=== PATIENT | female | born 1935 | race Caucasian/White ===

== ENCOUNTER 2018-09-19 00:52 | Outpatient (CLI) | payer MEDICARE, BC, SELFPAY ==
--- NOTE | 2018-09-19 10:47 | DI.US_ITS ---
SYMPTOMS/DIAGNOSIS: PALPABLE MASS OVER RT COSTAL ANGLE, R22.2 ULTRASOUND OF THE CHEST: Targeted sonographic ultrasound in the anterior chest was performed. The area was identified by the patient. There is a 0.6 x 0.3 x 0.5 cm hyperechoic solid mass in the subcutaneous tissues inferior to the xiphoid process corresponding to the palpable abnormality. The mass shows no posterior acoustic enhancement or shadowing and no internal blood flow. IMPRESSION: Nonspecific 0.6 cm echogenic mass corresponding to the palpable abnormality. This may represent a focal area of inflammation or infection. Small lipomas should be considered. The findings are nonspecific sonographically. Follow up as clinically appropriate.
== END 2018-09-19 01:12 ==
PROVIDERS: Visit Provider Nurse Practitioner Family
DX: R22.2 Localized swelling, mass and lump, trunk (principal); D17.39 Benign lipomatous neoplasm of skin and subcutaneous tissue of other sites
CPT/HCPCS: 76604

== ENCOUNTER 2018-12-05 12:11 | Outpatient (REF) | payer MEDICARE, SELFPAY ==
[2018-12-05 22:24] LABS: Anion Gap 3.9 mmol/L (3-11); BUN 11 mg/dL (7-18); CO2 34.1 mmol/L (21.0-32.0); CREATININE 0.87 mg/dL (0.55-1.02); Chloride 105 mmol/L (98-107); Glucose 98 mg/dL (70-100); Potassium 4.1 mmol/L (3.5-5.1); Sodium 143 mmol/L (136-145); TSH (W/Ref FT4) 2.68 uIU/mL (0.358-3.74)
== END 2018-12-05 12:31 ==
LOC: NCHCN 12:11
PROVIDERS: PCP Nurse Practitioner Family; Visit Provider Nurse Practitioner Family
DX: E03.9 Hypothyroidism, unspecified (principal); F41.9 Anxiety disorder, unspecified; M81.0 Age-related osteoporosis without current pathological fracture; J30.89 Other allergic rhinitis
CPT/HCPCS: 80048; 84443

== ENCOUNTER 2019-12-14 21:36 | Outpatient (REF) | payer MEDICARE, SELFPAY ==
[2019-12-14 22:21] LABS: TSH (W/Ref FT4) 1.71 uIU/mL (0.36-3.74)
== END 2019-12-14 21:56 ==
LOC: NCHCN 21:36
PROVIDERS: PCP Nurse Practitioner Family; Visit Provider Nurse Practitioner Family
DX: E03.9 Hypothyroidism, unspecified (principal); I10 Essential (primary) hypertension; F41.9 Anxiety disorder, unspecified; M81.0 Age-related osteoporosis without current pathological fracture; J30.89 Other allergic rhinitis
CPT/HCPCS: 84443

== ENCOUNTER 2020-05-17 11:13 | Emergency (ER) | payer MEDICARE, BC, SELFPAY ==
[2020-05-17 11:18] VITALS: BP 158/87; PULSE 81; RESP 16; TEMP 36.7; O2SAT 96
--- NOTE | 2020-05-17 11:32 | ED.GENADUL_ITS ---
Discharge Plan Disposition Patient Disposition: HOME Condition: Stable Discharge Details Chief Complaint: RashLesion Clinical Impression: Insect bite Primary Care Provider: Rosa Viera ED Provider: Navarro Ramos Home Meds and New Rx's Prescriptions: New doxycycline hyclate 100 mg tablet 100 mg PO BID Qty: 14 RF: 0 Continued calcium and magnesium carbonat [Antacid Extra-Strength] 1 EACH tablet 1 tab PO DAILY RF: 0 vitamin B complex 1 EACH capsule 1 cap PO DAILY RF: 0 coenzyme Q10 [CoQ-10] 100 MG capsule 1 cap PO DAILY RF: 0 red yeast rice 600 MG capsule 1 cap PO HS RF: 0 thyroid (pork) [[place] Thyroid] 60 MG tablet 1 tab PO DAILY RF: 0 Tumeric 1 cap PO DAILY RF: 0 propranolol 10 mg tablet 10 BID RF: 0 Discharge Instructions Instructions: Insect Bite or Sting (ED) Additional Instructions: Take antibiotics as prescribed. Continue your regular medications. Do not take the antibiotic at the same time as you take your daily antacid/vitamins. Return for increasing redness, development of a fever, stiff joints, or any other acute concern. Medical Decision Making Healthy 84-year-old female thinks she may have been bit by a tick yesterday which she removed. She noticed small area of erythema on her left arm for which he seeks evaluation today. She has otherwise been well denies other illness. We will treat with a course of doxycycline. Discussed with her home management as well as indications to return for reevaluation. She is stable and appropriate for discharge to home. HPI General Mode of arrival: ambulatory . Date/Time Provider Initiated Documentation: 05/17/20 11:20 . Limitations to Documentation: no limitations . Information obtained by: patient . History of Present Illness 84 year old F presents to the emergency department with the chief complaint of Left arm possible insect bite, described as mild, Quality is described as dull, and is localized to the left and upper extremity. Patient started experiencing this hour(s) and it has been constant. No relieving factors improve symptom(s), No exacerbating factors reported . Patient did receive the following treatments prior to arrival, none Related Data Home Medications Medication Instructions Recorded Confirmed Tumeric 1 cap PO DAILY 05/11/15 05/17/20 calcium and magnesium carbonat 1 tab PO DAILY 05/11/15 05/11/15 [Antacid Extra-Strength] coenzyme Q10 [CoQ-10] 1 cap PO DAILY 05/11/15 05/17/20 red yeast rice 1 cap PO HS 05/11/15 05/17/20 thyroid (pork) [[place] Thyroid] 1 tab PO DAILY 05/11/15 05/17/20 vitamin B complex 1 cap PO DAILY 05/11/15 05/17/20 doxycycline hyclate 100 mg PO BID #14 tab 05/17/20 propranolol 10 BID 05/17/20 Previous Rx's Medication Instructions Recorded doxycycline hyclate 100 mg PO BID #14 tab 05/17/20 Allergies Allergy/AdvReac Type Severity Reaction Status Date / Time grass pollen-perennial rye, Allergy Mild Skin Rash Unverified 05/17/20 11:26 standar [grass poll-perennial rye,std] brazil nuts Allergy Intermediate Swelling/Ed Uncoded 05/17/20 11:26 ad goats Allergy Unknown Uncoded 05/17/20 11:26 General Stated Complaint: RashLesion PEPITO: 4 Review of Systems Narrative: 6 systems reviewed and otherwise negative [facility] Social History Smoking/Tobacco Use Status: Former Tobacco Use Drug use: Never Substance use type: does not use Do you feel safe at home: Yes Exam Narrative Exam Narrative: GEN: awake, alert, oriented 3. Pleasant, well groomed, interactive. HEAD: Normocephalic, atraumatic ENT: Mucous membranes moist, oropharynx unremarkable, External ear exam unre markable EYES: PERRL, EOMI NECK: Full ROM, no AISHA, no menigismus CHEST/RESP: Nontender CARDIOVASCULAR: RRR, no murmur, rub zenaida. 2+ Rad pulse bilateral EXT: Full ROM, no edema, left proximal forearm with 1 cm diameter area of erythema without central lesion. Neuro: Grossly normal neurologic exam, conversant, interactive. Psych: Speech fluent, thoughts congruent, affect normal Course Vital Signs Vital signs: Vital Signs Temperature 36.7 C 05/17/20 11:18 Pulse 81 05/17/20 11:18 Respiratory Rate 16 05/17/20 11:18 Blood Pressure 158/87 H 05/17/20 11:18 Pulse Oximetry 96 05/17/20 11:18 Temperature 36.7 C 05/17/20 11:18 Temperature Source Skin 05/17/20 11:18 Pulse 81 07/03/20 11:18 Respiratory Rate 16 05/17/20 11:18 Respiratory Effort 05/17/20 11:24 Blood Pressure 158/87 H 05/17/20 11:18 Blood Pressure Position Sitting 05/17/20 11:18 Pulse Oximetry 96 05/17/20 11:18 Oxygen Delivery Method Room Air 05/17/20 11:18 Oxygen Flow Rate 0 05/17/20 11:18 Pain Level 0 05/17/20 11:18
== END 2020-05-17 11:39 | disposition home or self-care (01) ==
PROVIDERS: Emergency Provider Emergency Medicine; PCP Nurse Practitioner Family
DX: S50.862A Insect bite (nonvenomous) of left forearm, initial encounter (principal); W57.XXXA Bitten or stung by nonvenomous insect and other nonvenomous arthropods, initial encounter
CPT/HCPCS: 99283

== ENCOUNTER 2020-07-05 18:55 | Outpatient (REF) | payer MEDICARE, OTHER, SELFPAY ==
[2020-07-05 23:33] LABS: Anion Gap 6.3 mmol/L (3-11); BUN 14 mg/dL (7-18); CO2 29.7 mmol/L (21.0-32.0); CREATININE 0.75 mg/dL (0.55-1.02); Calcium 10.2 mg/dL (8.5-10.1); Calculated LDL 133 mg/dL (<100); Chloride 103 mmol/L (98-107); Cholesterol 213 mg/dL (<200); Glucose 120 mg/dL (74-106); HDL Cholesterol 62 mg/dL (40-60); Potassium 4.2 mmol/L (3.5-5.1); Sodium 139 mmol/L (136-145); TSH (W/Ref FT4) 1.34 uIU/mL (0.36-3.74); Triglyceride 91 mg/dL (<150)
== END 2020-07-05 19:15 ==
LOC: NCHCN 18:55
PROVIDERS: PCP Nurse Practitioner Family; Visit Provider Nurse Practitioner Family
DX: I10 Essential (primary) hypertension (principal); E03.9 Hypothyroidism, unspecified; M25.552 Pain in left hip; J30.89 Other allergic rhinitis; F41.9 Anxiety disorder, unspecified; M81.0 Age-related osteoporosis without current pathological fracture
CPT/HCPCS: 80048; 80061; 84443

== ENCOUNTER 2020-07-19 15:13 | Outpatient (REF) | payer MEDICARE, OTHER, SELFPAY ==
[2020-07-19 22:14] LABS: Anion Gap 5.8 mmol/L (3-11); BUN 16 mg/dL (7-18); CO2 29.2 mmol/L (21.0-32.0); CREATININE 0.71 mg/dL (0.55-1.02); Calcium 9.3 mg/dL (8.5-10.1); Chloride 108 mmol/L (98-107); Glucose 97 mg/dL (74-106); Potassium 4.3 mmol/L (3.5-5.1); Sodium 143 mmol/L (136-145)
== END 2020-07-19 15:33 ==
LOC: NCHCN 15:13
PROVIDERS: PCP Nurse Practitioner Family; Visit Provider Nurse Practitioner Family
DX: I10 Essential (primary) hypertension (principal); E78.5 Hyperlipidemia, unspecified; E83.52 Hypercalcemia
CPT/HCPCS: 80048

== ENCOUNTER 2020-11-28 15:01 | Emergency (ER) | payer MEDICARE, BC, OTHER, SELFPAY ==
--- NOTE | 2020-11-28 15:00 | RT.EKG_ITS ---
APPROVED REPORT Exam: Resting ECG Patient Location: E HR:72 bpm ECG Measurements Heart Rate 72 AXIS AZ 153 P 84 QRSd 85 QRS -37 QT 427 T -6 QTc 468 Conclusion Sinus rhythm. normal P axis Left axis deviation
[2020-11-28 15:08] VITALS: BP 191/86; PULSE 81; RESP 18; TEMP 36.6; O2SAT 98
--- NOTE | 2020-11-28 15:15 | DI.RAD_ITS ---
EXAM: XR RIBS LT W PA LAT CHEST CLINICAL HISTORY: Fall, pain TECHNIQUE: 2D digital imaging was performed. COMPARISON: No exams were available for comparison FINDINGS: There are no acute rib fractures evident. No lytic rib lesions identified. No lung contusion or pneumothorax. There is no pleural effusion evident. Heart size is normal and there is no significant mediastinal widening. IMPRESSION: 1. No rib fractures evident. Also no obvious rib lesions. 2. No ipsilateral lung nor pleural abnormality evident. No pneumothorax. DATA REPOSITORY: RADIATION DOSE DELIVERED:
--- NOTE | 2020-11-28 15:19 | ED.GENADUL_ITS ---
Discharge Plan Disposition Patient Disposition: HOME Condition: Stable Discharge Details Clinical Impression: Hip pain, left, Traumatic chest pain Primary Care Provider: Rosa Viera ED Provider: Diaz Hooks Home Meds and New Rx's Prescriptions: Continued Antacid Extra-Strength 1 EACH tablet 1 tab PO DAILY RF: 0 vitamin B complex 1 EACH capsule 1 cap PO DAILY RF: 0 coenzyme Q10 [CoQ-10] 100 MG capsule 1 cap PO DAILY RF: 0 red yeast rice 600 MG capsule 1 cap PO HS RF: 0 thyroid (pork) [[place] Thyroid] 60 MG tablet 1 tab PO DAILY RF: 0 Tumeric 1 cap PO DAILY RF: 0 propranolol 10 mg tablet 10 mg PO BID RF: 0 losartan 25 mg tablet 12.5 mg PO DAILY RF: 0 Discharge Instructions Instructions: Leg Pain (ED) Additional Instructions: your xrays did not show any broken bones if pain continues in a week follow up with your primary care provider return to the emergency department if severe worsening pain or new pain such as abdominal pain You can take 650mg tylenol every 6 hours for pain as needed Discharge Data Discharge Date/Time-TO BE ENTERED AT DEPARTURE: 11/28/20 17:00 Medical Decision Making <Ludy Cr - Last Filed: 11/29/20 08:13> 85-year-old female presents to the ER via wheelchair with chief complaint of left hip pain status post mechanical fall. Patient states approximately 10:00 this morning she tripped over a vacuum house and fell onto her left side. She denies any head injury or loss of consciousness denies any neck or back pain. She denies any dizziness and fall mechanical fall. She has increased pain with weightbearing. She does state that she has had left hip pain for quite a while before the injury. There is no significant shortening or rotation noted on exam distal dorsal pedal pulses are intact. There is no contusions or obvious injury or deformity. She is alert and oriented x3 she did not take any medications prior to arrival. She has past medical history of hypothyroidism, hypertension surgical history includes hysterectomy and tonsillectomy. EKG was reviewed by Dr. Rachel REID ER attending, please see his official report and review. Normal sinus rhythm no ST elevation. X-ray left hip and pelvis ordered, x-ray left ribs and chest p.o. Tylenol given. Care is to be handed off to oncoming provider Dr. Jessee REID pending chest and hip x-rays to rule out left hip fracture. <Diaz Hooks MD - Last Filed: 11/28/20 16:52> xrays negative and patient now walking at baseline without complaints or new pain. Feels comfortable with d/c, suspect contusion of rib cage and hip. Advised to f/u with pcp if not improving within a week and return precautions given Imaging Data Radiologic Study: Attestation: I personally reviewed and interpreted this imaging study as follows: Imaging: X-Ray Radiologist's impression: no acute findings on rib xrays and cxr Radiologic Study #2: Attestation: I personally reviewed and interpreted this imaging study as follows: Imaging: X-Ray Radiologist's impression: no acute findings on hip xray HPI <Ludy Cr - Last Filed: 11/29/20 08:13> General Mode of arrival: wheelchair . Date/Time Provider Initiated Documentation: 11/28/20 15:02 . Limitations to Documentation: no limitations . Information obtained by: patient . HPI Narrative: 85-year-old female presents to the ER via wheelchair with chief complaint of left hip pain status post mechanical fall. Patient states approximately 10:00 this morning she tripped over a vacuum house and fell onto her left side. She denies any head injury or loss of consciousness denies any neck or back pain. She denies any dizziness and fall mechanical fall. She has increased pain with weightbearing. She does state that she has had left hip pain for quite a while before the injury. There is no significant shortening or rotation noted on exam distal dorsal pedal pulses are intact. There is no contusions or obvious injury or deformity. She is alert and oriented x3 she did not take any medications prior to arrival. She has past medical history of hypothyroidism, hypertension surgical history includes hysterectomy and tonsillectomy. Related Data Home Medications Medication Instructions Recorded Confirmed Antacid Extra-Strength 1 tab PO DAILY 05/11/15 11/28/20 Tumeric 1 cap PO DAILY 05/11/15 11/28/20 coenzyme Q10 [CoQ-10] 1 cap PO DAILY 05/11/15 11/28/20 red yeast rice 1 cap PO HS 05/11/15 11/28/20 thyroid (pork) [[place] Thyroid] 1 tab PO DAILY 05/11/15 11/28/20 vitamin B complex 1 cap PO DAILY 05/11/15 11/28/20 propranolol 10 mg PO BID 05/17/20 11/28/20 losartan 12.5 mg PO DAILY 11/28/20 11/28/20 Allergies Allergy/AdvReac Type Severity Reaction Status Date / Time grass pollen-perennial rye, Allergy Mild Skin Rash Unverified 11/28/20 15:11 standar [grass poll-perennial rye,std] brazil nuts Allergy Intermediate Swelling/Ed Uncoded 11/28/20 15:11 ad goats Allergy Unknown Uncoded 11/28/20 15:11 General Stated Complaint: Orthopedic PEPITO: 3 Review of Systems <Ludy Cr - Last Filed: 11/29/20 08:13> Narrative: Constitutional: Negative for weight loss, alert and oriented, well groomed, normal body habitus, appears comfortable. HEENT: Denies trauma, headaches, blurry vision, nasal discharge, sore throat, trouble swallowing. Chest: Denies chest pain, palpitations, irregular rhythm, hypertension. Respiratory: Denies Shortness of breath, cough, hemoptysis. GI: Denies abdominal pain, nausea, vomiting, diarrhea, constipation. : Denies dysuria, hematuria, flank pain, rectal bleeding. Neuro: Denies dizziness, blurry vision, weakness, syncope, headache or facial numbness. Hematologic: Denies easy bruising, intolerance to heat or cold, hair loss. PFSH <Ludy Cr - Last Filed: 11/29/20 08:13> Social History Smoking/Tobacco Use Status: Former Tobacco Use Smoking risk assessment performed?: Yes Drug use: Never Substance use type: does not use Do you feel safe at home: Yes Exam <Ludy Cr - Last Filed: 11/29/20 08:13> Narrative Exam Narrative: Constitutional: Alert and oriented x3. Appears stated age. Normal body habitus. Head: Normocephalic, no trauma. Eyes: Pupils PERRLA, Red reflex noted, EOM's intact. Eyelids symmetrical without lesions, discharge, or swelling. ENT: Bilateral TM's WNL, External ear normal to inspection, no mastoid TTP, swelling, or erythema, Nasal turbinates WNL, no nasal discharge. Normal dentition, Posterior pharynx WNL, no exudate. Chest: RRR, Normal S1, S2, distal pulses intact. Resp: Lungs clear to auscultation bilaterally, no wheezes, rales, or rhonchi. Musculoskeletal: Tenderness to palpation to left lateral hip and thigh with palpation. Pelvis is stable, no obvious step-off or crepitus no deformity. Skin: No suspicious rashes or lesions. Capillary refill less than 2 sec. Neurologic: Cranial nerves II-XII intact. Alert and oriented x 3. DTR's intact. Hematologic/Lymphatic: No ecchymosis, no lymphadenopathy. Course <Ludy Cr - Last Filed: 11/29/20 08:13> Vital Signs Vital signs: Vital Signs Temperature 36.6 C 11/28/20 15:08 Pulse 81 11/28/20 15:08 Respiratory Rate 18 11/28/20 15:08 Blood Pressure 191/86 H 11/28/20 15:08 Pulse Oximetry 98 11/28/20 15:08 Temperature 36.6 C 11/28/20 15:08 Temperature Source Skin 11/28/20 15:08 Pulse 81 11/28/20 15:08 Respiratory Rate 18 11/28/20 15:08 Respiratory Effort Non-Labored 11/28/20 15:14 Blood Pressure 191/86 H 11/28/20 15:08 Blood Pressure Position Sitting 11/28/20 15:08 Pulse Oximetry 98 11/28/20 15:08 Oxygen Delivery Method Room Air 11/28/20 15:08 Oxygen Flow Rate 0 11/28/20 15:08 Pain Level 8 11/28/20 15:08 Sign Out <Ludy Cr - Last Filed: 11/29/20 08:13> Sign Out Data: Sign Out Comment: Pending Xray results Last updated by Ludy Cr at 11/28/20 15:51
[2020-11-28] MEDS: Acetaminophen 500 MG TAB PO (15:21)
--- NOTE | 2020-11-28 16:01 | DI.RAD_ITS ---
EXAM: XR HIP LT COMPLETE AP PELVIS CLINICAL HISTORY: Fall, hip pain. TECHNIQUE: 2D digital imaging was performed. COMPARISON: No exams were available for comparison FINDINGS: There is no evidence of pelvic or hip fracture. There are moderate degenerative changes in the left hip joint noted including joint space narrowing and subarticular degenerative cysts. IMPRESSION: No pelvic or hip fracture evident. Moderate degenerative changes left hip joint. DATA REPOSITORY: RADIATION DOSE DELIVERED:
--- NOTE | 2020-11-28 16:23 | DI.VRAD_ITS ---
PROCEDURE INFORMATION: Exam: XR Left Ribs Exam date and time: 11/28/2020 4:01 PM Age: 85 years old Clinical indication: Pain and injury or trauma; Fall; Blunt trauma (contusions or hematomas); Left-sided chest pain; Rib area, left side; Chest wall pain TECHNIQUE: Imaging protocol: XR Left ribs. Views: 2 views. COMPARISON: No relevant prior studies available. FINDINGS: Bones/joints: Normal. Soft tissues: Normal. IMPRESSION: No acute findings. PROCEDURE INFORMATION: Exam: XR Chest, 2 Views Exam date and time: 11/28/2020 4:01 PM Age: 85 years old Clinical indication: Pain and injury or trauma; Fall; Blunt trauma (contusions or hematomas); Left-sided chest pain; Rib area, left side; Chest wall pain TECHNIQUE: Imaging protocol: XR of the chest Views: 2 views. COMPARISON: No relevant prior studies available. FINDINGS: Lungs: Unremarkable. No consolidation. Pleural space: Unremarkable. No pleural effusion. No pneumothorax. Heart/Mediastinum: Unremarkable. No cardiomegaly. Bones/joints: Unremarkable. IMPRESSION: No acute findings. Dictated and Authenticated by: Lucas Marcos MD. Ordering:ESME Boston MD
--- NOTE | 2020-11-28 16:24 | DI.VRAD_ITS ---
PROCEDURE INFORMATION: Exam: XR Left Hip with Pelvis when Performed Exam date and time: 11/28/2020 4:01 PM Age: 85 years old Clinical indication: Pain and injury or trauma; Fall; Blunt trauma (contusions or hematomas); Hip pain; Left hip TECHNIQUE: Imaging protocol: XR Left hip with pelvis when performed. Views: 2 or 3 views. COMPARISON: No relevant prior studies available. FINDINGS: Bones/joints: Left hip joint space narrowing. Subchondral cystic degenerative changes in the left femoral head. Osteophyte formation left femoral head. No definite fracture. Soft tissues: Unremarkable. IMPRESSION: Moderate arthropathy left hip joint space. No definite evidence of fracture. If the patient is nonweightbearing recommend MRI or CT scan of hip. Dictated and Authenticated by: Lucas Marcos MD. Ordering:ESME Boston MD
[2020-11-28 16:53] VITALS: BP 156/81; PULSE 77; RESP 18; TEMP 36.8; O2SAT 96
== END 2020-11-28 17:00 | disposition home or self-care (01) ==
PROVIDERS: Emergency Provider Emergency Medicine; PCP Nurse Practitioner Family
DX: M25.552 Pain in left hip (principal); R07.81 Pleurodynia; W18.09XA Striking against other object with subsequent fall, initial encounter; I10 Essential (primary) hypertension
CPT/HCPCS: 93005; 99284; 71046; 71100; 73502; 93010

== ENCOUNTER 2021-08-06 15:30 | Outpatient (REF) | payer MEDICARE, OTHER, SELFPAY ==
[2021-08-06 22:35] LABS: BUN 18 mg/dL (7-18); CREATININE 0.7 mg/dL (0.55-1.02); Calcium 9.5 mg/dL (8.5-10.1); Chloride 107 mmol/L (98-107); Glucose 94 mg/dL (74-106); Potassium 4.4 mmol/L (3.5-5.1); Sodium 143 mmol/L (136-145); TSH (W/Ref FT4) 1.68 uIU/mL (0.36-3.74)
== END 2021-08-06 15:31 | disposition home or self-care (01) ==
LOC: NCHCN 15:30
PROVIDERS: PCP Nurse Practitioner Family; Visit Provider Nurse Practitioner Family
DX: E03.9 Hypothyroidism, unspecified (principal); E83.52 Hypercalcemia; I10 Essential (primary) hypertension
CPT/HCPCS: 80048; 84443

== ENCOUNTER 2022-08-31 18:29 | Outpatient (REF) | payer MEDICARE, OTHER, SELFPAY ==
[2022-08-31 16:30] LABS: ALT 32 U/L (14-59); AST 23 U/L (15-37); Albumin 3.3 g/dL (3.4-5.0); Alkaline Phosphatase 122 U/L (46-116); Anion Gap 7.2 mmol/L (3-11); BUN 12 mg/dL (7-18); Bilirubin, Total 0.3 mg/dL (0.2-1.0); CO2 27.8 mmol/L (21.0-32.0); CREATININE 0.9 mg/dL (0.55-1.02); Chloride 107 mmol/L (98-107); Estimated GFR 62.65 (mL/min/1.73m2); Glucose 92 mg/dL (74-106); Potassium 4.1 mmol/L (3.5-5.1); Sodium 142 mmol/L (136-145); Total Protein 6.8 g/dL (6.4-8.2)
[2022-08-31 17:37] LABS: Vitamin D 25 Total 51.4 ng/mL (30-100)
== END 2022-08-31 18:30 | disposition home or self-care (01) ==
LOC: NCHCN 18:29
PROVIDERS: PCP Nurse Practitioner Family; Visit Provider Nurse Practitioner Family
DX: E03.9 Hypothyroidism, unspecified (principal); I10 Essential (primary) hypertension; E78.5 Hyperlipidemia, unspecified; E83.52 Hypercalcemia; M81.0 Age-related osteoporosis without current pathological fracture
CPT/HCPCS: 80053; 82306; 84443

== ENCOUNTER 2023-07-17 14:25 | Emergency (ER) | payer MEDICARE, BC, OTHER, SELFPAY ==
[2023-07-17 14:37] VITALS: BP 154/95; PULSE 84; RESP 18; TEMP 37.1; O2SAT 97
--- NOTE | 2023-07-17 15:59 | ED.GENADUL_ITS ---
Discharge Plan Disposition Patient Disposition: Home Discharge Details Clinical Impression: Lesion of lip Primary Care Provider: Rosa Viera ED Provider: Abdifatah Centeno Home Meds and New Rx's Prescriptions: Continued vitamin K2 PO aspirin 81 mg tablet,delayed release (DR/EC) 81 mg PO DAILY melatonin PO QHS Antacid Extra-Strength 1 EACH tablet 1 tab PO DAILY vitamin B complex 1 EACH capsule 1 cap PO DAILY coenzyme Q10 [CoQ-10] 100 MG capsule 1 cap PO DAILY red yeast rice 600 MG capsule 1 cap PO HS thyroid (pork) [[place] Thyroid] 60 MG tablet 1 tab PO DAILY Tumeric 1 cap PO DAILY propranolol 10 mg tablet 10 mg PO BID Patient Comments: TK 1 T PO BID losartan 25 mg tablet 12.5 mg PO DAILY Patient Comments: TAKE 1/2 TABLET BY MOUTH DAILY Discharge Instructions Instructions: Soft Tissue Mass (ED) Additional Instructions: At this time I do feel that your lesions are stable but we will attempt to see about getting you a sooner appointment given that you have had a new appearance and lesion since your initial referral to ENT. If you have any new or significant worsening of symptoms, as discussed, feel free to follow-up with your primary care provider for reassessment or return to the emergency department as needed Referrals: [facility] [Provider Group] (Please call their office next week to see if sooner appointment is available) Discharge Data Discharge Date/Time-TO BE ENTERED AT DEPARTURE: 07/17/23 16:27 Medical Decision Making Patient presenting to the emergency department for chief complaint of lip lesion. Reports this has been there for 6 months and patient has seen primary care for this and referred to ENT and has an appointment on August 16. Since her primary care visit she is now started to notice a another lesion starting on her lower lip. Patient denies all other symptoms. Physical exam does show larger approximately 5 to 7 mm lesion to the upper left lip almost to the lateral corner. On the left lower to central aspect of the inner lip she does have signs of a slight new lesion but not as palpable as the upper 1. Exam is otherwise unremarkable. Do not feel that there is any need for emergent labs or work-up but do think that patient should follow-up with ENT and will place patient on follow-up list to see if she can follow-up sooner given new lesion. After discussion of diagnosis and plan of care patient has no further needs, questions, or concerns and states clear understanding to return to the emergency department for any worsening symptoms. This documentation was generated using [employer] dictation system, please disregard any oddities of phrase or misspellings. HPI General Mode of arrival: ambulatory . Date/Time Provider Initiated Documentation: 07/17/23 15:34 . Limitations to Documentation: no limitations . Information obtained by: patient and RN notes reviewed . History of Present Illness 87 year old F presents to the emergency department with the chief complaint of Lip lesion, Patient started experiencing this month(s) (6) and it has been constant. Patient notes no other symptoms.. Patient did receive the following treatments prior to arrival, none Related Data Home Medications Medication Instructions Recorded Confirmed Tumeric 1 cap PO DAILY 05/11/15 11/28/20 calcium and magnesium carbonates 1 tab PO DAILY 05/11/15 11/28/20 311 mg-232 mg tablet (Antacid Extra-Strength) coenzyme Q10 100 mg capsule 1 cap PO DAILY 05/11/15 07/17/23 (CoQ-10) red yeast rice 600 mg capsule 1 cap PO HS 05/11/15 07/17/23 thyroid (pork) 60 mg tablet 1 tab PO DAILY 05/11/15 07/17/23 ([place] Thyroid) vitamin B complex 1 cap PO DAILY 05/11/15 07/17/23 propranolol 10 mg tablet 10 mg PO BID 05/17/20 07/17/23 losartan 25 mg tablet 12.5 mg PO DAILY 11/28/20 07/17/23 aspirin 81 mg tablet,delayed 81 mg PO DAILY 07/16/23 07/17/23 release melatonin PO QHS 07/16/23 vitamin K2 PO 07/16/23 Allergies Allergy/AdvReac Type Severity Reaction Status Date / Time grass pollen-perennial rye, Allergy Mild Skin Rash Unverified 07/17/23 14:41 standar [grass poll-perennial rye,std] tetracycline AdvReac Mild Verified 07/17/23 14:41 brazil nuts Allergy Intermediate Swelling/Ed Uncoded 07/17/23 14:41 ad goats Allergy Unknown Uncoded 07/17/23 14:41 General Stated Complaint: DentalOral PEPITO: 4 Review of Systems Constitutional Constitutional: Denies chills, Denies fever(s) and Denies weight loss ENT Ears, Nose, Mouth, and Throat: Reports as per HPI Integumentary/Breasts Skin/Breast: Reports as per HPI PFSH All Active Problems Lesion of lip (Acute) Medical History 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 Anxiety Elevated alkaline phosphatase level Fibrocystic breast disease Hypercalcemia Hyperlipidemia Hypertension Hypothyroidism Lip lesion Osteoporosis Skin lesion of face Swelling, mass, or lump in chest Social History Smoking/Tobacco Use Status: Former Tobacco Use Smoking risk assessment performed?: Yes Alcohol Intake: never Drug use: Never Substance use type: does not use Do you feel safe at home: Yes Exam Const General: cooperative, comfortable and no acute distress Orientation: alert and awake HENMT Head: normal to inspection, normocephalic and atraumatic Ears: hearing grossly normal bilaterally and TM's normal bilaterally General nose exam: external nose normal Face and sinus: no erythema Mouth: no drooling, lip abnormal left lateral lesion, left lower lesion, no muffled voice and no trismus Throat: posterior oropharynx normal Neck Neck: normal visual inspection, full ROM, no lymphadenopathy, no meningeal signs, trachea midline and supple Resp Effort & Inspection: normal respiratory effort and able to speak in complete sentences Auscultation: clear to auscultation bilaterally Cardio Rate: regular rate Rhythm: regular rhythm Heart Sounds: normal S1 and S2 Skin General skin exam: no rashes or lesions noted and dry skin (warm) Neuro General: patient alert, patient awake, patient oriented x3, gait normal and moves all extremities Cognition: normal cognition Speech: speech normal Course Vital Signs Vital signs: Vital Signs Temperature 37.1 C 07/17/23 14:37 Pulse 84 07/17/23 14:37 Respiratory Rate 18 07/17/23 14:37 Blood Pressure 154/95 H 07/17/23 14:37 Pulse Oximetry 97 07/17/23 14:37 Temperature 37.1 C 07/17/23 14:37 Temperature Source Temporal Artery Scan 07/17/23 14:37 Pulse 84 07/17/23 14:37 Respiratory Rate 18 07/17/23 14:37 Respiratory Effort Normal, Non-Labored 07/17/23 14:42 Blood Pressure 154/95 H 07/17/23 14:37 Blood Pressure Position Sitting 07/17/23 14:37 Pulse Oximetry 97 07/17/23 14:37 Oxygen Delivery Method Room Air 07/17/23 14:37 Oxygen Flow Rate 0 07/17/23 14:37
--- NOTE | 2023-07-17 23:23 | NUR.NOTE ---
Pt placed on care management referral for ENT for new lip lesion to be seen sooner if possible. Nursing Note:
== END 2023-07-17 16:27 | disposition home or self-care (01) ==
PROVIDERS: Emergency Provider Nurse Practitioner Family; PCP Nurse Practitioner Family
DX: K13.0 Diseases of lips (principal)
CPT/HCPCS: 99282

== ENCOUNTER 2023-09-06 14:08 | Outpatient (REF) | payer MEDICARE, OTHER, SELFPAY ==
--- NOTE | 2023-09-06 12:30 | LIPBX_PTH ---
PATIENT: Dulce Palm LOC: N U#:[id number] AGE/SX: 87/F ROOM: RE09/06/[address]: Ramesh Mitchell MD : [id number] BED: DIS: 09/06/2023 SPEC #: [id number] RECD: 09/06/23 18:19 STATUS: NATHALIE REQ #: [id number] YADIRA: 09/06/23 12:[address]: Ramesh Mitchell DEPT: Surgical Specimen RECD BY: Yesica Garcia ENTERED: 09/06/23 18:20 SP TYPE: LIPBX OTHR DR: Rosa Viera Tissues: 1 - LIP BIOPSY/RESECTION Procedures: SPECIAL STAIN 2 GROSS AND MICRO LEVEL 4 Comments: [id number]
== END 2023-09-06 14:09 | disposition home or self-care (01) ==
LOC: LBN 14:08
PROVIDERS: PCP Nurse Practitioner Family; Visit Provider Otolaryngology
DX: K13.0 Diseases of lips (principal)
CPT/HCPCS: 88305; 88313

== ENCOUNTER 2023-09-14 16:25 | Outpatient (REF) | payer MEDICARE, OTHER, SELFPAY ==
[2023-09-14 20:30] LABS: Abs Immature Grans 0.02 10^3/uL (0.0-0.06); Absolute Basophil Count 0.07 10^3/uL (0.0-0.2); Absolute Eosinophil Count 0.19 10^3/uL (0.0-0.7); Absolute Lymphocyte Count 1.39 10^3/uL (1.2-3.4); Absolute Monocyte Count 0.49 10^3/uL (0.1-0.8); Absolute Neutrophil Count 5.77 10^3/uL (1.2-6.7); Basophils % 0.9; Eosinophils % 2.4; HCT 40.3 % (36.0-46.0); Immature Grans % 0.3; Lymphocytes % 17.5; MCH 30.5 pg (27.0-33.0); MCHC 32.3 % (32.0-36.0); MCV 95 fL (80-95); MPV 9.8 fL (8.0-11.0); Monocytes % 6.2; Neutrophils % 72.7; Platelet Count 319 10^3/uL (130-400); RBC 4.26 10^6/uL (3.93-5.22); RDW 12.7 % (11.7-14.6); WBC 7.93 10^3/uL (4.4-10.8)
[2023-09-14 21:06] LABS: ALT 27 U/L (14-59); AST 26 U/L (15-37); Albumin 3.4 g/dL (3.4-5.0); Alkaline Phosphatase 100 U/L (46-116); Anion Gap 7.1 mmol/L (3-11); BUN 13 mg/dL (7-18); Bilirubin, Total 0.3 mg/dL (0.2-1.0); CO2 27.9 mmol/L (21.0-32.0); CREATININE 0.8 mg/dL (0.55-1.02); Chloride 106 mmol/L (98-107); Estimated GFR 71.71 (mL/min/1.73m2); Glucose 108 mg/dL (74-106); Potassium 4.1 mmol/L (3.5-5.1); Sodium 141 mmol/L (136-145); TSH (W/Ref FT4) 1.48 uIU/mL (0.36-3.74); Total Protein 7.4 g/dL (6.4-8.2)
== END 2023-09-14 16:26 | disposition home or self-care (01) ==
LOC: NCHCN 16:25
PROVIDERS: PCP Nurse Practitioner Family; Visit Provider Nurse Practitioner Family
DX: I10 Essential (primary) hypertension (principal); E78.5 Hyperlipidemia, unspecified; E03.9 Hypothyroidism, unspecified; R74.8 Abnormal levels of other serum enzymes; M81.0 Age-related osteoporosis without current pathological fracture; R39.89 Other symptoms and signs involving the genitourinary system
CPT/HCPCS: 80053; 82306; 84443; 85025; 87086

== ENCOUNTER 2023-09-14 17:13 | Emergency (ER) | payer MEDICARE, BC, OTHER, SELFPAY ==
[2023-09-14 17:21] VITALS: BP 189/116; PULSE 88; RESP 20; TEMP 36.6; O2SAT 99
[2023-09-14 17:28] VITALS: BP 189/116; PULSE 80; RESP 20; TEMP 36.9; O2SAT 98
[2023-09-14 17:42] LABS: Bilirubin Small (Negative); Blood Large (Negative); Clarity Turbid (Clear); Glucose Negative (Negative); Ketones Negative (Negative); Leukocyte Esterase Trace (Negative); Nitrite Negative (Negative); Specific Gravity 1.015 (1.005-1.025); Urobilinogen 0.2 mg/dL (Up to 0.2)
[2023-09-14 17:50] LABS: Bacteria Negative HPF (Negative); C & S Indicated? Yes; Crystals Negative HPF (Negative); Epithelial Cells Rare HPF (Negative); Mucus Negative (Negative); Other Cells Negative (Negative); RBC >50 HPF (0-2); WBC 0-2 HPF (0-5)
--- NOTE | 2023-09-14 18:09 | W.ED.GENAD ---
Discharge Plan Disposition Patient Disposition: Home Discharge Details Clinical Impression: Hematuria Primary Care Provider: Rosa Viera ED Provider: Katie Martinez Home Meds and New Rx's Prescriptions: New nitrofurantoin monohyd/m-cryst [Macrobid] 100 mg capsule 100 mg PO Q12H 3 Days Qty: 6 0RF Rx Instructions: must administer with a meal/food No Action vitamin K2 PO Patient Comments: No dose information listed on med list aspirin 81 mg tablet,delayed release (DR/EC) 81 mg PO DAILY melatonin 2 mg PO QHS vitamin B complex 1 EACH capsule 1 cap PO DAILY coenzyme Q10 [CoQ-10] 100 MG capsule 1 cap PO DAILY red yeast rice 600 MG capsule 1 cap PO HS thyroid (pork) [Barnett Thyroid] 60 MG tablet 30 mg PO DAILY Tumeric 1 cap PO DAILY propranolol 10 mg tablet 10 mg PO BID Patient Comments: TK 1 T PO BID losartan 25 mg tablet 12.5 mg PO DAILY Patient Comments: TAKE 1/2 TABLET BY MOUTH DAILY calcium-magnesium 1 tab PO DAILY Discharge Instructions Instructions: Hematuria (ED) Additional Instructions: We have sent a culture which will be resulted in 48 hours. If your culture is positive or if you develop any urinary frequency or urgency, fill the prescription for the Macrobid 100 mg twice a day for 3 days. We recommend you take a probiotic while on antibiotics. You will be contacted by urology for the blood in your urine. Call your primary care provider in the morning for a follow-up appointment and recheck notify them that a culture was done. Return here for any new or worrisome symptoms. Discharge Data Discharge Physician: Katie Martinez Medical Decision Making This is an 87-year-old female in good health who presents with hematuria. She is not on therapeutic anticoagulants and denies any other bleeding or easy bruising. She does not appear clinically anemic but my plan is to obtain blood work to check her platelet count H&H and differential. We will also check her renal function and electrolytes. We will check a urinalysis for blood and infection. If she has evidence of infection we will treat her with antibiotics although I think this is unlikely given that she has had previous UTIs and has not had any similar symptoms. Overall she appears well and will likely be discharged home with outpatient follow-up Differential Diagnosis Differential Diagnosis: Hematuria, UTI, thrombocytopenia, coagulopathy Medical Records Medical records reviewed: Yes I reviewed the patient's medical records. Lab Data Lab results reviewed: Yes I reviewed the patient's lab results. Lab results narrative: Hematuria. Trace leukocyte esterase, urine culture is pending HPI General Date/Time Provider Initiated Documentation: 09/14/23 18:08. Information obtained by: patient, family and RN notes reviewed. HPI Narrative: Time seen was 1800 in bed 6. History was obtained both from the patient and her son. The patient is a 87-year-old female who presents with hematuria. She states it began today and was associated with symptoms of urinary retention. She does have a history of UTIs in the distant past but was told she had a stenotic area that was dilated and this resolved her recurrent UTIs. She tells me the procedure was done in [place] in 1979. I am assuming this was a urethral stricture. She denies any urgency or dysuria. She did have the sensation of urinary retention and was only able to urinate a small amount. She did note blood in the urine and was advised to come in for evaluation. She is not on therapeutic anticoagulants. She denies any bleeding from her gums or easy bruising. She denies any trauma or previous similar episodes. She is scheduled to see a dentist for a tooth in the left lower jaw. She denies any fevers chills or abdominal pain. She denies any nausea or vomiting. She denies any aggravating or alleviating factors. She denies any previous similar episodes. She denies any pain. She recently had a lesion of her left lower lip biopsied and was told it was noncancerous. Related Data Home Medications Medication Instructions Recorded Confirmed Tumeric 1 cap PO DAILY 05/11/15 09/14/23 coenzyme Q10 100 mg capsule 1 cap PO DAILY 05/11/15 09/14/23 (CoQ-10) red yeast rice 600 mg capsule 1 cap PO HS 05/11/15 09/14/23 thyroid (pork) 60 mg tablet 30 mg PO DAILY 05/11/15 09/14/23 (Barnett Thyroid) vitamin B complex 1 cap PO DAILY 05/11/15 09/14/23 propranolol 10 mg tablet 10 mg PO BID 05/17/20 09/14/23 losartan 25 mg tablet 12.5 mg PO DAILY 11/28/20 09/14/23 aspirin 81 mg tablet,delayed 81 mg PO DAILY 07/16/23 09/14/23 release melatonin 2 mg PO QHS 07/16/23 09/14/23 vitamin K2 PO 07/16/23 09/06/23 calcium-magnesium 1 tab PO DAILY 09/14/23 09/14/23 nitrofurantoin 100 mg PO Q12H 3 days #6 caps 09/14/23 monohydrate/macrocrystals 100 mg capsule (Macrobid) Previous Rx's Medication Instructions Recorded nitrofurantoin 100 mg PO Q12H 3 days #6 caps 09/14/23 monohydrate/macrocrystals 100 mg capsule (Macrobid) Allergies Allergy/AdvReac Type Severity Reaction Status Date / Time grass pollen-perennial rye, Allergy Mild Skin Rash Unverified 09/14/23 17:21 standar [grass poll-perennial rye,std] tetracycline AdvReac Mild Verified 09/14/23 17:21 brazil nuts Allergy Intermediate Swelling/Ed Uncoded 09/14/23 17:21 ad goats Allergy Unknown Uncoded 09/14/23 17:21 General Stated Complaint: Urinary PEPITO: 3 Review of Systems Narrative: see hpi PFSH All Active Problems (Updated 09/14/23 @ 19:41 by Katie Martinez MD) Hematuria (Acute) Medical History Fibrocystic breast disease Hypercalcemia Elevated alkaline phosphatase level Osteoporosis Hypothyroidism Anxiety 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 Skin lesion of face Swelling, mass, or lump in chest Hypertension Hyperlipidemia Lip lesion Social History Smoking/Tobacco Use Status: Former Tobacco Use Smoking risk assessment performed?: Yes Alcohol Intake: never Drug use: Never Substance use type: does not use Housing: house Do you feel safe at home: Yes Do you feel safe in your relationship?: Yes Exam Narrative Exam Narrative: The patient is well-developed well-nourished female who is mildly hypertensive. She appears younger than her stated age. She is not tachycardic tachypneic or febrile. She has a normal room air O2 sat at 99%. Her GCS is 15. Const General: cooperative, healthy appearing, comfortable, no acute distress, well developed, well groomed and well hydrated Nutritional Appearance: average body habitus and well nourished Orientation: alert, awake and oriented x3 [facility] Head: normal to inspection, normocephalic and atraumatic Ears: hearing grossly normal bilaterally and external ears normal General nose exam: external nose normal, nares normal and no nasal discharge Face and sinus: normal facial exam, sinuses nontender and face symmetric Mouth: oral mucosae normal, tongue normal, oropharynx normal, moist mucous membranes and other (Normal phonation. The patient is handling secretions.) Throat: posterior oropharynx normal and uvula midline Other: The patient has some missing teeth. There is no evidence of buccal cellulitis or dental abscess. Tooth #19 or 20 appears slightly discolored and sandoval but there is no obvious cavity or fracture. Eyes General: appearance normal, both eyes and all related structures Eyelids: eyelids normal Conjunctivae: conjunctivae normal Sclera: sclerae normal Cornea: corneas normal Pupils: PERRL EOM: EOM intact bilaterally and No nystagmus Neck Neck: normal visual inspection, full ROM, no lymphadenopathy, no meningeal signs, trachea midline and supple Lymphatic: no lymphadenopathy noted Chest Chest: normal inspection of the chest Resp Effort & Inspection: normal respiratory effort, able to speak in complete sentences, no audible wheezes, no nasal flaring, no respiratory distress, no retractions, no stridor, not tachypneic, no tracheal deviation, no use of accessory muscles, No prolonged expiratory phase and other (Normal inspiratory to expiratory ratio.) Auscultation: clear to auscultation bilaterally, no rales, no rhonchi, no wheezes and no rubs Tactile Fremitus: tactile fremitus absent Cardio Jugular venous pressure: no JVD Palpation: normal PMI Rate: regular rate Rhythm: regular rhythm Heart Sounds: S1 normal, S2 normal, no gallops, no murmurs and no rubs GI Inspection: normal to inspection and non-distended Palpation: soft, no hepatosplenomegaly, no guarding and nontender Percussion: normal to percussion Auscultation: normal bowel sounds General: No CVA tenderness Back/Spine/Pelvis Back: no CVA tenderness and No back tenderness Cervical Spine: normal cervical lordosis, cervical ROM normal, No cervical muscular tenderness, No pain with cervical ROM, No cervical spinal tenderness and No step off deformity Thoracic/Lumbar Spine: thoracic and lumbar spine normal to inspection, No thoracic spinal tenderness and No lumbar spinal tenderness Pelvis: no pain with anterior-posterior compression and no pain with lateral compression Skin General skin exam: no rashes or lesions noted, turgor normal, no petechiae, no purpura and other (Skin is normal for ethnicity.) Lesions: no lesions Rashes: no rashes Trauma: no lacerations or abrasions Neuro General: patient alert, patient awake, patient oriented x3, moves all extremities, no meningeal signs, no focal motor deficits and CN's II-XI intact bilaterally Cranial Nerves: CN's II-XI intact bilaterally, PERRL, accommodation normal, EOM intact bilaterally, no nystagmus, facial strength normal, tongue midline, hearing normal and no nystagmus Cognition: normal cognition Speech: speech normal Gait: normal gait Motor: muscle tone normal throughout and strength 5/5 throughout Sensory Exam: no sensory deficits noted Extrem General: normal to inspection, full ROM, capillary refill normal, no clubbing, cyanosis or edema and no calf tenderness Psych Appearance: grossly normal Affect: normal affect Attitude: cooperative Thought Process: normal Thought Content: normal Insight: insight good Judgment: judgment good Other: The patient appears to have capacity make medical decisions. Course The patient remained stable in the emergency department. I have discussed the urine culture which is pending. She did have a small amount of leukocyte Estrace but has not had dysuria frequency or urgency. I have advised the patient I will write for Macrobid 100 mg twice daily for 3 days. I have advised her to take it if the urine culture is positive or if she begins having symptoms of dysuria frequency or urgency. I have advised her to take a probiotic if she takes the antibiotic. I have also advised her she will be followed up by urology and advised her to contact her primary care provider to obtain the results of the urine culture and for any further treatment or recommendations Vital Signs Vital signs: Vital Signs Temperature 36.6 C 09/14/23 17:21 Pulse 88 09/14/23 17:21 Respiratory Rate 20 09/14/23 17:21 Blood Pressure 189/116 H 09/14/23 17:21 Pulse Oximetry 99 09/14/23 17:21 Temperature 36.9 C 09/14/23 17:28 Pulse 80 09/14/23 17:28 Respiratory Rate 20 09/14/23 17:28 Respiratory Effort Normal 09/14/23 17:28 Blood Pressure 189/116 H 09/14/23 17:28 Blood Pressure Position Sitting 09/14/23 17:21 Pulse Oximetry 98 09/14/23 17:28 Oxygen Delivery Method Room Air 09/14/23 17:28 Oxygen Flow Rate 0 09/14/23 17:21 Lab/Test Results Lab/Test Results: 09/14/23 17:20 Urine - Reflex from Ua Urine Culture - Pending Laboratory Tests Range/Units 09/14/23 17:20 Urine Color (Yellow) Red Urine Clarity (Clear) Turbid Urine pH (5-8) 7.0 Ur Specific [place] (1.005-1.025) 1.015 Urine Protein (Negative) mg/dL 100 H Urine Ketones (Negative) mg/dL Negative Urine Blood (Negative) Large H Urine Nitrite (Negative) Negative Urine Bilirubin (Negative) Small H Urine Urobilinogen (Up to 0.2) mg/dL 0.2 Ur Leukocyte Esterase (Negative) Trace H Urine RBC (0-2) HPF >50 H Urine WBC (0-5) HPF 0-2 Ur Epithelial Cells (Negative) HPF Rare Urine Crystals (Negative) HPF Negative Urine Bacteria (Negative) HPF Negative Urine Mucus (Negative) Negative Urine Other (Negative) Negative Ur Culture Indicated? Yes Urine Glucose (Negative) mg/dL Negative
[2023-09-14 18:32] LABS: HCT 40.7 % (36.0-46.0); HGB 13.4 g/dL (11.2-15.7); MCH 30.7 pg (27.0-33.0); MCHC 32.9 % (32.0-36.0); MCV 93 fL (80-95); MPV 8.8 fL (8.0-11.0); Platelet Count 316 10^3/uL (130-400); RBC 4.37 10^6/uL (3.93-5.22); RDW 12.5 % (11.7-14.6); RDW-SD 42.8 fL; WBC 8.59 10^3/uL (4.4-10.8)
[2023-09-14 18:48] LABS: ALT 28 U/L (14-59); AST 25 U/L (15-37); Albumin 3.7 g/dL (3.4-5.0); Alkaline Phosphatase 110 U/L (46-116); Anion Gap 7.9 mmol/L (3-11); BUN 12 mg/dL (7-18); Bilirubin, Total 0.3 mg/dL (0.2-1.0); CO2 29.1 mmol/L (21.0-32.0); CREATININE 0.8 mg/dL (0.55-1.02); Calcium 10.4 mg/dL (8.5-10.1); Chloride 104 mmol/L (98-107); Estimated GFR 71.71 (mL/min/1.73m2); Glucose 113 mg/dL (74-106); Potassium 4.2 mmol/L (3.5-5.1); Sodium 141 mmol/L (136-145)
[2023-09-14 19:43] VITALS: BP 154/88; PULSE 78; RESP 18; TEMP 36.7; O2SAT 98
--- NOTE | 2023-09-14 20:14 | NUR.NOTE ---
Referral faxed to [facility] Urology to f/u for hematuria.Nursing Note:
== END 2023-09-14 19:47 | disposition home or self-care (01) ==
PROVIDERS: Emergency Provider Emergency Medicine Emergency Medical Services; PCP Nurse Practitioner Family
DX: R31.9 Hematuria, unspecified (principal)
CPT/HCPCS: 51798; 80048; 80053; 85027; 99283; 81003; 81015; 87086; 99284

== ENCOUNTER 2024-06-01 21:51 | Outpatient (REF) | payer MEDICARE, BC, OTHER, SELFPAY ==
[2024-06-01 22:56] LABS: ALT 25 U/L (14-59); AST 19 U/L (15-37); Albumin 3.2 g/dL (3.4-5.0); Alkaline Phosphatase 99 U/L (46-116); Anion Gap 5.4 mmol/L (3-11); BUN 15 mg/dL (7-18); Bilirubin, Total 0.36 mg/dL (0.2-1.0); CO2 27.6 mmol/L (21.0-32.0); CREATININE 0.9 mg/dL (0.55-1.02); Calcium 9.4 mg/dL (8.5-10.1); Chloride 106 mmol/L (98-107); Estimated GFR 61.87 (mL/min/1.73m2); Glucose 100 mg/dL (74-106); Potassium 4.1 mmol/L (3.5-5.1); Sodium 139 mmol/L (136-145); TSH (W/Ref FT4) 1.33 uIU/mL (0.36-3.74); Total Protein 6.6 g/dL (6.4-8.2); Vitamin D 25 Total 47.9 ng/mL (30-100)
== END 2024-06-01 21:52 | disposition home or self-care (01) ==
LOC: NCHCN 21:51
PROVIDERS: PCP Nurse Practitioner Family; Visit Provider Nurse Practitioner Family
DX: I10 Essential (primary) hypertension (principal); E03.9 Hypothyroidism, unspecified; M81.0 Age-related osteoporosis without current pathological fracture
CPT/HCPCS: 80053; 82306; 84443

== ENCOUNTER 2025-01-11 09:52 | Inpatient (IN) | payer MEDICARE, BC, OTHER, SELFPAY ==
[2025-01-11] VITALS (45 sets, daily range): BP systolic 122–185; BP diastolic 55–111; PULSE 70–92; RESP 12–23; TEMP 36.3–36.9; O2SAT 94–100; BMI 20.7
--- NOTE | 2025-01-11 10:00 | DI.RAD_ITS ---
Exam(s) XR PELVIS AP XR KNEE LT 3V AP,LAT,LORIN XR FEMUR LT EXAM: XR FEMUR LT CLINICAL HISTORY: fall, left hip pain. TECHNIQUE: 2D digital imaging was performed. AP and lateral views of the femur. AP view of the pel vis. Three views of the knee. COMPARISON: None. FINDINGS: BONES: There is intertrochanteric fracture of the left femur with mild impaction and a few small comm inuted fragments.. No additional fractures are identified. No bony destructive lesion is seen. JOINTS: No dislocation present. Degenerative changes of the left hip. The knee is unremarkable. No significant joint space narrowing or evidence of fracture. SOFT TISSUE: Normal. IMPRESSION: Intertrochanteric fracture of the left femur. DATA REPOSITORY: RADIATION DOSE DELIVERED:
--- NOTE | 2025-01-11 10:15 | RT.EKG_ITS ---
APPROVED REPORT Exam: Resting ECG Reason for Exam: fall Patient Location: E HR:85 bpm ECG Measurements Heart Rate 85 AXIS MI 131 P 0 QRSd 73 QRS -43 QT 367 T -61 QTc 436 Conclusion Sinus rhythm...normal P axis, V-rate 60- 99 Left axis deviation...QRS axis (-30,-90) Nonspecific T abnormalities, lateral leads...T <-0.10mV, I aVL V5 V6 I have reviewed and interpreted ECG and agree with software generated interpretation.
[2025-01-11 10:57] LABS: Abs Immature Grans 0.12 10^3/uL (0.0-0.06); Absolute Basophil Count 0.06 10^3/uL (0.0-0.2); Absolute Lymphocyte Count 0.66 10^3/uL (1.2-3.4); Absolute Monocyte Count 1.27 10^3/uL (0.1-0.8); Basophils % 0.3 %; HCT 35.4 % (36.0-46.0); HGB 11.7 g/dL (11.2-15.7); Immature Grans % 0.6 %; Lymphocytes % 3.1 %; MCH 30.5 pg (27.0-33.0); MCHC 33.1 % (32.0-36.0); MCV 92 fL (80-95); MPV 9.8 fL (8.0-11.0); Platelet Count 245 10^3/uL (130-400); RBC 3.83 10^6/uL (3.93-5.22); RDW 13.1 % (11.7-14.6); WBC 21.17 10^3/uL (4.4-10.8)
[2025-01-11 10:58] LABS: Lactate 4.8 mmol/L (<or=2.0)
[2025-01-11 10:59] LABS: Absolute Neutrophil Count 19.05 10^3/uL (1.2-6.7)
--- NOTE | 2025-01-11 11:05 | DI.CT_ITS ---
Exam(s) CT CHEST/ABD/PEL WO EXAM: CT CHEST/ABD/PEL WO CLINICAL HISTORY: fall, confused, altered, covered in feces, L hip p. TECHNIQUE: Imaging Protocol: Axial computed tomography images with coronal and sagittal reformatted images were created and reviewed. Computer aided detection (CAD) was utilized. CONTRAST MATERIAL: Noncontrast COMPARISON: No exams were available for comparison FINDINGS: CHEST: Tracheobronchial tree: Patent. Pulmonary parenchyma: No consolidation or dominant measurable mass. Pleura: No effusion or pneumothorax. Biapical pleural calcification. Mediastinum: Within normal limits. Aorta: Thoracic portion non-dilated. Pulmonary arteries: No visible emboli. Heart: No pericardial effusion. Bones: Unremarkable for age. No lytic or blastic lesions.No compression fractures. Soft tissues: Unremarkable. ABDOMEN and PELVIS: Liver: Normal density. Cyst near diaphragm. No suspicious mass. Gallbladder and biliary tract: No evidence of stones or wall thickening. No biliary dilatation. Pancreas: Normal density, no abnormal calcifications or inflammatory process. Spleen: Normal. Kidneys: Normal size, contour and axis. No radiodense stones. No obstructive uropathy. No suspicious masses seen. Adrenal glands: No masses seen. Aorta: Abdominal portion non-dilated. Lymph nodes: Within normal limits. Soft tissues: Unremarkable. Bladder: Unremarkable. Bowel: No obstruction or bowel wall thickening. Peritoneal cavity: No ascites. No focal collection. No mesenteric inflammatory response. No free ai r. Bones: Intertrochanteric fracture of the left femur with some impaction. No significant separation o f fragments. Mild comminution. No additional fractures. Degenerative changes of the hips, left grea ter than right. Degenerative changes of the spine. Reproductive organs: Hysterectomy. IMPRESSION: No acute abnormality in the chest . Intertrochanteric fracture of the left femur. No additional pelvic or spine fractures. Findings called to Dr. Barreto of the emergency department. RADIATION DOSE DELIVERED: 453.24mGy.cm Total DLP DATA REPOSITORY: All CT scans at this facility are submitted to the National Radiology Data Registry (NRDR) Dose Index Registry (DIR) with the [employer] (A[employer]). RADIATION OPTIMIZATION: All CT scans at this facility use at least one of these dose optimization te chniques: automated exposure control; mA and/or kV adjustment per patient size (includes targeted exa ms where dose is matched to clinical indication); or iterative reconstruction.
[2025-01-11 11:11] LABS: PTT Activated 24.1 sec (20.6-30.2); Prothrombin Time 9.9 sec (9.1-11.1)
--- NOTE | 2025-01-11 11:15 | DI.CT_ITS ---
Exam(s) CT HEAD CERV SPINE FACIAL WO EXAM: CT HEAD CERV SPINE FACIAL WO CLINICAL HISTORY: fall, confused, altered, covered in feces. TECHNIQUE: Imaging Protocol: Axial computed tomography images with coronal and sagittal reformatted images were created and reviewed COMPARISON: No exams were available for comparison FINDINGS: CT Head: Ventricles and Extra axial spaces: Normal in size and morphology for the patient's age. Hemorrhage: None. Cerebral parenchyma: No evidence of acute hemorrhage or acute infarct. Mild atrophy and white matter changes, consistent with the patient's age. Midline shift: None. Brainstem/Cerebellum: Normal. Calvarium: Normal. Visualized Paranasal sinuses/Mastoids: Clear. Soft Tissues: Unremarkable. CT Face: Facial Bones: No fracture is noted in facial bones. Sinuses and Mastoids: Unremarkable. Globes, extraocular muscles, optic nerves and retrobulbar fat: Normal. Upper aerodigestive tract: Normal. Mandible and bilateral temporomandibular joints: Normal. Soft tissues: Normal. CT Cervical Spine: Bones: No acute fracture or subluxation. Degenerative disc changes and facet degenerative changes. Soft Tissues: Unremarkable. Lung Apices: No pneumothorax. Apical pleural calcifications. IMPRESSION: 1. No acute intracranial process. 2. No acute fracture or subluxation in the cervical spine. 3. No acute facial fracture. RADIATION DOSE DELIVERED: 1,429.69mGy.cm Total DLP DATA REPOSITORY: All CT scans at this facility are submitted to the National Radiology Data Registry (NRDR) Dose Index Registry (DIR) with the [employer] (ACR). RADIATION OPTIMIZATION: All CT scans at this facility use at least one of these dose optimization te chniques: automated exposure control; mA and/or kV adjustment per patient size (includes targeted exa ms where dose is matched to clinical indication); or iterative reconstruction.
[2025-01-11 11:30] LABS: TSH (W/Ref FT4) 6.41 uIU/mL (0.36-3.74); Troponin I 9 ng/L (<or=51)
[2025-01-11 11:34] LABS: COVID-19 PCR Negative (Negative); Influenza A PCR Negative (Negative); Influenza B PCR Negative (Negative); RSV PCR Negative (Negative)
[2025-01-11 11:35] LABS: Source Nasopharynx
[2025-01-11 11:48] LABS: FREE T4 0.94 ng/dL (0.76-1.46)
[2025-01-11] MEDS: MORPHine 4 MG/ML SYR IVP (11:56)
[2025-01-11] MEDS: Lactated Ringers 1,000 ML 1000 ML IV (11:59)
[2025-01-11 12:10] LABS: ALT 29 U/L (14-59); AST 30 U/L (15-37); Albumin 3.6 g/dL (3.4-5.0); Alkaline Phosphatase 109 U/L (46-116); Anion Gap 13.3 mmol/L (3-11); BUN 28 mg/dL (7-18); Bilirubin, Total 0.61 mg/dL (0.2-1.0); CO2 24.7 mmol/L (21.0-32.0); CREATININE 2.3 mg/dL (0.55-1.02); Calcium 10.2 mg/dL (8.5-10.1); Chloride 104 mmol/L (98-107); Creatine Kinase 432 U/L (26-192); Estimated GFR 19.94 (mL/min/1.73m2); Glucose 152 mg/dL (74-106); Potassium 4.4 mmol/L (3.5-5.1); Sodium 142 mmol/L (136-145); Total Protein 7.6 g/dL (6.4-8.2)
--- NOTE | 2025-01-11 12:17 | ED.GENADUL_ITS ---
Discharge Plan Disposition Patient Disposition: Admit to [facility] Condition: Good Discharge Details Chief Complaint: Fall/Non TraumaCriteria Clinical Impression: Intertrochanteric fracture of left femur, Rhabdomyolysis, MARCELO (acute kidney injury) Attending Provider: Jayce Galo Primary Care Provider: Rosa Viera ED Provider: Wicho Barreto Discharge Data Discharge Date/Time-TO BE ENTERED AT DEPARTURE: 01/11/25 15:40 HPI General Date/Time Provider Initiated Documentation: 01/11/25 10:14 . HPI Narrative: 89-year-old female with a past medical history of fibrocystic breast disease, hypothyroidism, hypertension, high cholesterol, presents today for evaluation of fall. Last known well for the patient was yesterday evening at 5 PM, multiple phone calls were sent to the patient this morning, there were no answers, patient was checked on and found to be on the stairs, appearing like she had fallen up the stairs. Unknown for how long she had been there. She is somewhat confused. She is covered in feces. She was brought to the ER for further assessment via EMS. She complains of left hip pain. She does not recall. No other complaints at this time. She denies any chest pain or shortness of breath. She denies any headache or neck pain. She denies any numbness or tingling. Related Data Home Medications ?Medication ?Instructions ?Recorded ?Confirmed Tumeric 1 cap PO DAILY 05/11/15 01/11/25 coenzyme Q10 100 mg capsule 1 cap PO DAILY 05/11/15 01/11/25 (CoQ-10) red yeast rice 600 mg capsule 1 cap PO HS 05/11/15 01/11/25 thyroid (pork) 60 mg tablet 30 mg PO DAILY 05/11/15 01/11/25 (Bonifay Thyroid) vitamin B complex 1 cap PO DAILY 05/11/15 01/11/25 propranolol 10 mg tablet 10 mg PO BID 05/17/20 01/11/25 losartan 25 mg tablet 12.5 mg PO DAILY 11/28/20 01/11/25 aspirin 81 mg tablet,delayed 81 mg PO DAILY 07/16/23 01/11/25 release vitamin K2 1 tab PO 07/16/23 09/06/23 calcium-magnesium 1 tab PO DAILY 09/14/23 01/11/25 thyroid (pork) 30 mg tablet 30 mg PO DAILY 09/29/23 01/11/25 (Bonifay Thyroid) thyroid (pork) 60 mg tablet 60 mg PO DAILY 09/29/23 01/11/25 (Bonifay Thyroid) Allergies Allergy/AdvReac Type Severity Reaction Status Date / Time grass pollen-perennial rye, Allergy Mild Skin Rash Verified 01/11/25 10:53 standar (grass poll-perennial rye,std) tetracycline AdvReac Mild Anaphylaxis Verified 01/11/25 10:53 brazil nuts Allergy Intermediate Swelling/Ed Uncoded 01/11/25 10:03 ad goats Allergy Unknown Unknown Uncoded 01/11/25 10:03 General Stated Complaint: Fall/Non TraumaCriteria PEPITO: 3 Exam Narrative Exam Narrative: 1.Const: Well-nourished, Well-developed, appearing stated age 2.Eyes: PERRL, no conjunctival injection, and symmetrical lids. 3.ENT: Atraumatic external nose and ears. Moist MM. Neck: Symmetric, trachea midline, No thyromegaly. There is no evidence of raccoon eyes, villegas sign, CSF rhinorrhea, mastoid tenderness, cranial crepitus, hemotympanum, exophthalmos, or hyphema. Patient demonstrates intact dentition with no signs of tooth avulsion or fracture, no signs of jaw deformity, no evidence of a LeFort's fracture, with an intact palate, nose and orbital region. There is no evidence of a nasal septal hematoma. No proptosis. Jaw closes symmetrically. Airway is clear. 4.CVS: +S1/S2, Peripheral pulses 2+ and equal in all extremities. Brisk capillary refill in all extremities. 5.RESP: Unlabored respiratory effort. Clear to auscultation bilaterally. No wheezes rales or rhonchi 6.GI: Soft, Nontender/Nondistended, No hepatosplenomegaly. No guarding or rebound. 7.MSK: Nontraumatic upper extremities. Lower extremities demonstrate tenderness over the left hip. Pain with logroll of the left lower extremity. No pain with movement of the right lower extremity. No other signs of trauma. No focal shortening. 8.Skin: Warm, Dry. No rashes or lesions. Covered in feces. 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 Sensation grossly intact, no focal neurologic deficits. 10.Psych: (AAO) x3. Appropriate mood and affect Course Vital Signs Vital signs: Vital Signs Temperature 36.3 C L 01/11/25 09:58 Pulse 78 01/11/25 09:58 Respiratory Rate 15 01/11/25 09:58 Blood Pressure 182/93 H 01/11/25 09:58 Pulse Oximetry 96 01/11/25 09:58 Temperature 36.3 C L 01/11/25 09:58 Temperature Source Oral 01/11/25 09:58 Pulse 91 H 01/11/25 12:00 Pulse 91 H 01/11/25 12:00 Respiratory Rate 16 01/11/25 12:00 Blood Pressure 167/95 H 01/11/25 12:00 Blood Pressure Mean 120 01/11/25 12:00 Blood Pressure Position Sitting 01/11/25 09:58 Pulse Oximetry 97 01/11/25 12:00 Oxygen Delivery Method Room Air 01/11/25 09:58 Oxygen Flow Rate 0 01/11/25 09:58 Lab/Test Results Lab/Test Results: Laboratory Tests Range/Units 01/11/25 01/11/25 10:46 10:47 WBC (4.4-10.8) 10^3/uL 21.17 H RBC (3.93-5.22) 10^6/uL 3.83 L Hgb (11.2-15.7) g/dL 11.7 Hct (36.0-46.0) % 35.4 L MCV (80-95) fL 92 MCH (27.0-33.0) pg 30.5 MCHC (32.0-36.0) % 33.1 RDW (11.7-14.6) % 13.1 Plt Count (130-400) 10^3/uL 245 MPV (8.0-11.0) fL 9.8 Immature Gran % % 0.6 Neutrophils % % 90.0 Lymphocytes % % 3.1 Monocytes % % 6.0 Eosinophils % % 0.0 Basophils % % 0.3 Nucleated RBC % (0.0-0.3) % 0.0 Absolute Neutrophils (1.2-6.7) 10^3/uL 19.05 H Absolute Lymphocytes (1.2-3.4) 10^3/uL 0.66 L Absolute Monocytes (0.1-0.8) 10^3/uL 1.27 H Absolute Eosinophils (0.0-0.7) 10^3/uL 0.00 Absolute Basophils (0.0-0.2) 10^3/uL 0.06 PT (9.1-11.1) sec 9.9 INR (0.9-1.1) 1.0 APTT (20.6-30.2) sec 24.1 VBG Lactate (<or=2.0) mmol/L 4.8 H* Sodium (136-145) mmol/L 142 Potassium (3.5-5.1) mmol/L 4.4 Chloride (98-107) mmol/L 104 Carbon Dioxide (21.0-32.0) mmol/L 24.7 Anion Gap (3-11) mmol/L 13.3 H BUN (7-18) mg/dL 28 H Creatinine (0.55-1.02) mg/dL 2.3 H Est GFR (CKD-EPI 2020) (mL/min/1.73m2) 19.94 Glucose (74-106) mg/dL 152 H Calcium (8.5-10.1) mg/dL 10.2 H Total Bilirubin (0.2-1.0) mg/dL 0.61 AST (15-37) U/L 30 ALT (14-59) U/L 29 Alkaline Phosphatase (46-116) U/L 109 Creatine Kinase (26-192) U/L 432 H Troponin I (<or=51) ng/L 9 Total Protein (6.4-8.2) g/dL 7.6 Albumin (3.4-5.0) g/dL 3.6 TSH (0.36-3.74) uIU/mL 6.41 H Free T4 (0.76-1.46) ng/dL 0.94 COVID-19 Source Nasopharynx SARS-CoV-2 (PCR) (Negative) Negative Influenza Type A (PCR) (Negative) Negative Influenza Type B (PCR) (Negative) Negative RSV (PCR) (Negative) Negative Medical Decision Making Abbreviated history, patient was found down, on the stairs, last known well was 5 PM last night. Complaining of left hip pain. Covered in feces. Brought in, she does not recall anything. CT head neck chest abdomen pelvis negative for acute process, she appeared dehydrated, white count of 21, lactate of 4.8, electrolytes stable, creatinine is 2.3 which is notably higher than normal. Suspect dehydration, CPK is 432 suggesting mild rhabdo, TSH high, free T4 normal, COVID flu RSV negative. Patient will require continued fluids and admission, will contact orthopedics for her hip fracture noted on x-ray and CT imaging. No other acute process. Will continue hydration Discussed the case with the orthopedic surgeon Dr. Galo. He does recommend surgical intervention. He and we will be able to provide surgery here. Discussed the case with the hospitalist Dr. Chester. He accepts the patient for admission under medicine. I have extensively reviewed the treatment plan with the patient. I have addressed all patient concerns at this time. I have also discussed the plan with the admitting physician and they agree with the current assessment and plan and have agreed to assume responsibility for the patient. All parties demonstrate verbal understanding and agreement with our assessment and plan at this time. The documentation in this chart was dictated using [employer] dictation software. Please excuse any dictation errors. FINDINGS: BONES: There is intertrochanteric fracture of the left femur with mild impaction and a few small comminuted fragments.. No additional fractures are identified. No bony destructive lesion is seen. JOINTS: No dislocation present. Degenerative changes of the left hip. The knee is unremarkable. No significant joint space narrowing or evidence of fracture. SOFT TISSUE: Normal. IMPRESSION: Intertrochanteric fracture of the left femur. FINDINGS: BONES: There is intertrochanteric fracture of the left femur with mild impaction and a few small comminuted fragments.. No additional fractures are identified. No bony destructive lesion is seen. JOINTS: No dislocation present. Degenerative changes of the left hip. The knee is unremarkable. No significant joint space narrowing or evidence of fracture. SOFT TISSUE: Normal. IMPRESSION: Intertrochanteric fracture of the left femur. FINDINGS: BONES: There is intertrochanteric fracture of the left femur with mild impaction and a few small comminuted fragments.. No additional fractures are identified. No bony destructive lesion is seen. JOINTS: No dislocation present. Degenerative changes of the left hip. The knee is unremarkable. No significant joint space narrowing or evidence of fracture. SOFT TISSUE: Normal. IMPRESSION: Intertrochanteric fracture of the left femur. FINDINGS: CT Head: Ventricles and Extra axial spaces: Normal in size and morphology for the patient's age. Hemorrhage: None. Cerebral parenchyma: No evidence of acute hemorrhage or acute infarct. Mild atrophy and white matter changes, consistent with the patient's age. Midline shift: None. Brainstem/Cerebellum: Normal. Calvarium: Normal. Visualized Paranasal sinuses/Mastoids: Clear. Soft Tissues: Unremarkable. CT Face: Facial Bones: No fracture is noted in facial bones. Sinuses and Mastoids: Unremarkable. Globes, extraocular muscles, optic nerves and retrobulbar fat: Normal. Upper aerodigestive tract: Normal. Mandible and bilateral temporomandibular joints: Normal. Soft tissues: Normal. CT Cervical Spine: Bones: No acute fracture or subluxation. Degenerative disc changes and facet degenerative changes. Soft Tissues: Unremarkable. Lung Apices: No pneumothorax. Apical pleural calcifications. IMPRESSION: 1. No acute intracranial process. 2. No acute fracture or subluxation in the cervical spine. 3. No acute facial fracture. FINDINGS: CHEST: Tracheobronchial tree: Patent. Pulmonary parenchyma: No consolidation or dominant measurable mass. Pleura: No effusion or pneumothorax. Biapical pleural calcification. Mediastinum: Within normal limits. Aorta: Thoracic portion non-dilated. Pulmonary arteries: No visible emboli. Heart: No pericardial effusion. Bones: Unremarkable for age. No lytic or blastic lesions.No compression fractures. Soft tissues: Unremarkable. ABDOMEN and PELVIS: Liver: Normal density. Cyst near diaphragm. No suspicious mass. Gallbladder and biliary tract: No evidence of stones or wall thickening. No biliary dilatation. Pancreas: Normal density, no abnormal calcifications or inflammatory process. Spleen: Normal. Kidneys: Normal size, contour and axis. No radiodense stones. No obstructive uropathy. No suspicious masses seen. Adrenal glands: No masses seen. Aorta: Abdominal portion non-dilated. Lymph nodes: Within normal limits. Soft tissues: Unremarkable. Bladder: Unremarkable. Bowel: No obstruction or bowel wall thickening. Peritoneal cavity: No ascites. No focal collection. No mesenteric inflammatory response. No free air. Bones: Intertrochanteric fracture of the left femur with some impaction. No significant separation of fragments. Mild comminution. No additional fractures. Degenerative changes of the hips, left greater than right. Degenerative changes of the spine. Reproductive organs: Hysterectomy. IMPRESSION: No acute abnormality in the chest . Intertrochanteric fracture of the left femur. No additional pelvic or spine fractures. Findings called to Dr. Barreto of the emergency department. Quality:SDOH Health Related Social Needs: No Data to Display PFSH All Active Problems (Updated 01/11/25 @ 17:48 by Wicho Barreto, DO) MARCELO (acute kidney injury) (Acute) Rhabdomyolysis (Acute) Intertrochanteric fracture of left femur (Acute) Allergic rhinitis (Acute) Lower urinary tract symptoms (LUTS) (Acute) Porter hematuria (Acute) Mass of torso (Acute) Medical History Fibrocystic breast disease Hypercalcemia Elevated alkaline phosphatase level Osteoporosis Hypothyroidism Anxiety 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 Skin lesion of face Swelling, mass, or lump in chest Hypertension Hyperlipidemia Lip lesion Social History Smoking/Tobacco Use Status: Former Tobacco Use Smoking risk assessment performed?: Yes Alcohol Intake: never Drug use: Never Substance use type: does not use Housing: house Do you feel safe at home: Yes Do you feel safe in your relationship?: Yes
[2025-01-11 12:53] LABS: Troponin I 10 ng/L (<or=51)
[2025-01-11 13:22] LABS: Bilirubin Negative (Negative); Blood Small (Negative); Clarity Clear (Clear); Glucose Negative (Negative); Ketones Negative (Negative); Leukocyte Esterase Negative (Negative); Nitrite Negative (Negative); Urobilinogen 0.2 mg/dL (Up to 0.2)
[2025-01-11 13:38] LABS: Bacteria Few HPF (Negative); C & S Indicated? No; Casts Negative LPF (Negative); Crystals Negative HPF (Negative); Epithelial Cells Few HPF (Negative); Mucus Negative (Negative); WBC 0-2 HPF (0-5)
--- NOTE | 2025-01-11 14:30 | DI.RAD_ITS ---
Exam(s) XR HIP LT IN OR EXAM: XR HIP LT IN OR CLINICAL HISTORY: Intertrochanteric fracture of the left femur TECHNIQUE: 2D and realtime digital imaging was performed. CONTRAST MATERIAL: Refer to procedure report. COMPARISON: CR XR FEMUR LT from 01/11/2025 CR XR PELVIS AP from 01/11/2025 FINDINGS: Fluoroscopy was provided for Dr. Galo during the performance of a reduction and internal fixation o f the proximal left femoral fracture.. Please refer to the procedure report for complete details. Ka,r=4.13 mGy IMPRESSION: RADIATION DOSE DELIVERED: 0.0 0.0 0
[2025-01-11 14:33] LABS: Troponin I 14 ng/L (<or=51)
--- NOTE | 2025-01-11 14:45 | HPE_ITS ---
Date of service: 01/11/25 Time of Service: 14:46 Assessment and Plan Assessment and plan (1) Intertrochanteric fracture of left femur: Status: Acute Assessment and plan: - admit to [facility] - per ER, physician has already contacted Dr. Galo from ortho, plans to take the patient to the OR today for ORIF - will keep patient NPO for now - will defer DVT ppx until after intervention - PT/OT once cleared by ortho (2) MARCELO (acute kidney injury): Status: Acute Assessment and plan: - suspect this is a combination of dehydration and less likely mild rhabdo - hydration initiated in ER, will continue NS - monitor BP, I/O (3) Rhabdomyolysis: Status: Acute Assessment and plan: - hydrate as noted above - recheck CPK in AM (4) Hypertension: Assessment and plan: - will continue propanolol per outpatient dosing - hold losartan due to MARCELO (5) Hyperlipidemia: Assessment and plan: - on red yeast rice (6) Hypothyroidism: Assessment and plan: - on armor thyroid History of Present Illness History of Present Illness Chief Complaint: found down Narrative: This is an 89 yo female with pmhx: HTN, hypothyroid, HTN that presents after being found down in her home by her son. Patient is a poor historian and has poor memory of events. Per ER, patient lives alone with family nearby. Son last saw/spoke to patient around 5PM yesterday without concerns. This AM, he arrived to find her down by her stairs, covered in feces. Unclear how long she had been down. At time of my eval, patient was awake, answers questions but seems mildly confused and I am wondering if this is her baseline. She denied any pain. Could not tell me much about events, remember her son coming in and then everyone else. W/U in the ER revealed a mid rhabdo along with a L intertrochanteric femur fracture seen on xray. 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 Skin lesion of face Swelling, mass, or lump in chest Hypertension Hyperlipidemia Lip lesion Social History Smoking/Tobacco Use Status: Former Tobacco Use Smoking risk assessment performed?: Yes Alcohol Intake: never Drug use: Never Substance use type: does not use Housing: house Do you feel safe at home: Yes Do you feel safe in your relationship?: Yes Meds Allergies and Home Medications Allergies Allergy/AdvReac Type Severity Reaction Status Date / Time grass pollen-perennial rye, Allergy Mild Skin Rash Verified 01/11/25 10:53 standar (grass poll-perennial rye,std) tetracycline AdvReac Mild Anaphylaxis Verified 01/11/25 10:53 brazil nuts Allergy Intermediate Swelling/Ed Uncoded 01/11/25 10:03 ad goats Allergy Unknown Unknown Uncoded 01/11/25 10:03 Home Medications ?Medication ?Instructions ?Recorded ?Confirmed ?Type Tumeric 1 cap PO DAILY 05/11/15 01/11/25 History coenzyme Q10 100 mg capsule 1 cap PO DAILY 05/11/15 01/11/25 History (CoQ-10) red yeast rice 600 mg capsule 1 cap PO HS 05/11/15 01/11/25 History thyroid (pork) 60 mg tablet 30 mg PO DAILY 05/11/15 01/11/25 History (Randle Thyroid) vitamin B complex 1 cap PO DAILY 05/11/15 01/11/25 History propranolol 10 mg tablet 10 mg PO BID 05/17/20 01/11/25 History losartan 25 mg tablet 12.5 mg PO DAILY 11/28/20 01/11/25 History aspirin 81 mg tablet,delayed 81 mg PO DAILY 07/16/23 01/11/25 History release vitamin K2 1 tab PO 07/16/23 09/06/23 History calcium-magnesium 1 tab PO DAILY 09/14/23 01/11/25 History thyroid (pork) 30 mg tablet 30 mg PO DAILY 09/29/23 01/11/25 History (Randle Thyroid) thyroid (pork) 60 mg tablet 60 mg PO DAILY 09/29/23 01/11/25 History (Randle Thyroid) Exam Const General: cooperative, comfortable, no acute distress and frail appearing Orientation: alert and awake [facility] Head: normocephalic and atraumatic Chest Chest: normal inspection of the chest Resp Effort & Inspection: normal respiratory effort Auscultation: clear to auscultation bilaterally, no rales, no rhonchi and no wheezes Cardio Rate: regular rate Rhythm: regular rhythm Heart Sounds: S1 normal and S2 normal GI Inspection: normal to inspection Palpation: soft and no hepatosplenomegaly Auscultation: normal bowel sounds Skin General skin exam: no rashes or lesions noted Extrem Left lower extremity: normal to inspection (well perfused, good PT/DP pulses) and normal capillary refill Results Labs 01/11/25 10:46 01/11/25 10:46 Labs: Laboratory Results - last 24 hr 01/11/25 01/11/25 01/11/25 10:46 10:47 11:49 WBC 21.17 H RBC 3.83 L Hgb 11.7 Hct 35.4 L MCV 92 MCH 30.5 MCHC 33.1 RDW 13.1 Plt Count 245 MPV 9.8 Immature Gran % 0.6 Neutrophils % 90.0 Lymphocytes % 3.1 Monocytes % 6.0 Eosinophils % 0.0 Basophils % 0.3 Nucleated RBC % 0.0 Absolute Neutrophils 19.05 H Absolute Lymphocytes 0.66 L Absolute Monocytes 1.27 H Absolute Eosinophils 0.00 Absolute Basophils 0.06 PT 9.9 INR 1.0 APTT 24.1 VBG Lactate 4.8 H* Sodium 142 Potassium 4.4 Chloride 104 Carbon Dioxide 24.7 Anion Gap 13.3 H BUN 28 H Creatinine 2.3 H Est GFR (CKD-EPI 2020) 19.94 Glucose 152 H Calcium 10.2 H Total Bilirubin 0.61 AST 30 ALT 29 Alkaline Phosphatase 109 Creatine Kinase 432 H Troponin I 9 10 Total Protein 7.6 Albumin 3.6 TSH 6.41 H Free T4 0.94 Urine Color Urine Clarity Urine pH Ur Specific [place] Urine Protein Urine Ketones Urine Blood Urine Nitrite Urine Bilirubin Urine Urobilinogen Ur Leukocyte Esterase Urine RBC Urine WBC Ur Epithelial Cells Urine Crystals Urine Bacteria Urine Casts Urine Mucus Ur Culture Indicated? Urine Glucose COVID-19 Source Nasopharynx SARS-CoV-2 (PCR) Negative Influenza Type A (PCR) Negative Influenza Type B (PCR) Negative RSV (PCR) Negative 01/11/25 01/11/25 01/11/25 13:10 13:17 14:10 WBC RBC Hgb Hct MCV MCH MCHC RDW Plt Count MPV Immature Gran % Neutrophils % Lymphocytes % Monocytes % Eosinophils % Basophils % Nucleated RBC % Absolute Neutrophils Absolute Lymphocytes Absolute Monocytes Absolute Eosinophils Absolute Basophils PT INR APTT VBG Lactate Sodium Potassium Chloride Carbon Dioxide Anion Gap BUN Creatinine Est GFR (CKD-EPI 2020) Glucose Calcium Total Bilirubin AST ALT Alkaline Phosphatase Creatine Kinase Troponin I 14 Total Protein Albumin TSH Free T4 Urine Color Yellow Cancelled Urine Clarity Clear Cancelled Urine pH 5.0 Cancelled Ur Specific [place] 1.010 Cancelled Urine Protein Negative Cancelled Urine Ketones Negative Cancelled Urine Blood Small H Cancelled Urine Nitrite Negative Cancelled Urine Bilirubin Negative Cancelled Urine Urobilinogen 0.2 Cancelled Ur Leukocyte Esterase Negative Cancelled Urine RBC 3-5 H Urine WBC 0-2 Ur Epithelial Cells Few Urine Crystals Negative Urine Bacteria Few Urine Casts Negative Urine Mucus Negative Ur Culture Indicated? No Urine Glucose Negative Cancelled COVID-19 Source SARS-CoV-2 (PCR) Influenza Type A (PCR) Influenza Type B (PCR) RSV (PCR) Last Vital Signs Temp 36.3 C L 01/11/25 09:58 Pulse 81 01/11/25 13:30 Resp 15 01/11/25 13:30 BP 165/75 H 01/11/25 13:30 Pulse Ox 97 01/11/25 13:30 Time Spent Time spent with Patient: <40 minutes Time was spent: preparing to see the patient(eg.review tests), ordering medications,tests, procedures, referring, communicating with other health point of care technician, indepentently interpreting results, counseling the patient and care coordination
--- NOTE | 2025-01-11 16:01 | PGE_ITS ---
Date of Service Date of service: 01/11/25 Time of Service: 18:29 Assessment and Plan Assessment and plan (1) Intertrochanteric fracture of left femur: Status: Acute Assessment and plan: 89-year-old female postop day #0 status post left hip intramedullary nailing Patient still waking up in PACU. Doing well. Left hip dressings clean dry intact. Left lower extremity appropriate. I spoke with patient's son. I have placed the following orders?24 hours postoperative antibiotics and physical therapy: Weightbearing as tolerated with assist device. Acetaminophen, naproxen, and diet. Appreciate medical management Please discontinue new Walker catheter postop day #1 assuming appropriate urine output. Start chemical DVT prophylaxis tomorrow morning assuming labs are appropriate: Typically, SQH or Lovenox while inpatient and aspirin 81 mg twice daily to complete 30 days of DVT prophylaxis as outpatient. Continue SCDs and/or KARISSA hose Multimodal pain control Discharge when medically appropriate Follow-up with Dr. Galo outpatient [facility] in about 2 weeks Objective Last Vital Signs Temp 97.3 F L 01/11/25 09:58 Pulse 83 01/11/25 15:16 Resp 13 01/11/25 15:20 BP 130/69 01/11/25 15:16 Pulse Ox 97 01/11/25 13:50 Laboratory Results - last 24 hr 01/11/25 01/11/25 01/11/25 10:46 10:47 11:49 WBC 21.17 H RBC 3.83 L Hgb 11.7 Hct 35.4 L MCV 92 MCH 30.5 MCHC 33.1 RDW 13.1 Plt Count 245 MPV 9.8 Immature Gran % 0.6 Neutrophils % 90.0 Lymphocytes % 3.1 Monocytes % 6.0 Eosinophils % 0.0 Basophils % 0.3 Nucleated RBC % 0.0 Absolute Neutrophils 19.05 H Absolute Lymphocytes 0.66 L Absolute Monocytes 1.27 H Absolute Eosinophils 0.00 Absolute Basophils 0.06 PT 9.9 INR 1.0 APTT 24.1 VBG Lactate 4.8 H* Sodium 142 Potassium 4.4 Chloride 104 Carbon Dioxide 24.7 Anion Gap 13.3 H BUN 28 H Creatinine 2.3 H Est GFR (CKD-EPI 2020) 19.94 Glucose 152 H Calcium 10.2 H Total Bilirubin 0.61 AST 30 ALT 29 Alkaline Phosphatase 109 Creatine Kinase 432 H Troponin I 9 10 Total Protein 7.6 Albumin 3.6 TSH 6.41 H Free T4 0.94 Urine Color Urine Clarity Urine pH Ur Specific [place] Urine Protein Urine Ketones Urine Blood Urine Nitrite Urine Bilirubin Urine Urobilinogen Ur Leukocyte Esterase Urine RBC Urine WBC Ur Epithelial Cells Urine Crystals Urine Bacteria Urine Casts Urine Mucus Ur Culture Indicated? Urine Glucose COVID-19 Source Nasopharynx SARS-CoV-2 (PCR) Negative Influenza Type A (PCR) Negative Influenza Type B (PCR) Negative RSV (PCR) Negative 01/11/25 01/11/25 01/11/25 13:10 13:17 14:10 WBC RBC Hgb Hct MCV MCH MCHC RDW Plt Count MPV Immature Gran % Neutrophils % Lymphocytes % Monocytes % Eosinophils % Basophils % Nucleated RBC % Absolute Neutrophils Absolute Lymphocytes Absolute Monocytes Absolute Eosinophils Absolute Basophils PT INR APTT VBG Lactate Sodium Potassium Chloride Carbon Dioxide Anion Gap BUN Creatinine Est GFR (CKD-EPI 2020) Glucose Calcium Total Bilirubin AST ALT Alkaline Phosphatase Creatine Kinase Troponin I 14 Total Protein Albumin TSH Free T4 Urine Color Yellow Cancelled Urine Clarity Clear Cancelled Urine pH 5.0 Cancelled Ur Specific [place] 1.010 Cancelled Urine Protein Negative Cancelled Urine Ketones Negative Cancelled Urine Blood Small H Cancelled Urine Nitrite Negative Cancelled Urine Bilirubin Negative Cancelled Urine Urobilinogen 0.2 Cancelled Ur Leukocyte Esterase Negative Cancelled Urine RBC 3-5 H Urine WBC 0-2 Ur Epithelial Cells Few Urine Crystals Negative Urine Bacteria Few Urine Casts Negative Urine Mucus Negative Ur Culture Indicated? No Urine Glucose Negative Cancelled COVID-19 Source SARS-CoV-2 (PCR) Influenza Type A (PCR) Influenza Type B (PCR) RSV (PCR) Time Spent with Patient Time Spent with Patient: <25 minutes Time was spent: care coordination
--- NOTE | 2025-01-11 16:01 | W.PM.OP ---
Operative Note Operative Note PRE-OP DIAGNOSIS: Left hip intertrochanteric fracture POST-OP DIAGNOSIS: same PROCEDURE: Left hip intramedullary nail, CPT #77540 SURGEON: Jayce Galo SORTING MACHINE ATTENDANT: Zahra Barrow ANESTHESIA TYPE: Local By Surgeon and General LMA/ETT Refer to Anesthesia Record ESTIMATED BLOOD LOSS: 30 COMPLICATIONS: None Patient was transported to: PACU Patient's condition: stable Implants: Synthes TFNA [id number] 130 deg, 85 mm TFNA helical blade, 34 mm 5.0mm distal locking screw Indications: Please see medical record for details Procedure Description: In the operating room, general anesthesia was induced. The patient was transferred and positioned supine on the fracture table. All bony prominences were well padded. Pre-operative antibiotics were administered. C-arm fluoroscopy was used to confirm appropriate provisional fracture reduction with traction and internal rotation. The correct patient, procedure, and side of the procedure were all verified prior to incision. The hip was prepped and draped in the usual sterile fashion. Local anesthetic with epinephrine was infiltrated about the planned start point as well as later about the lateral entry site for cephalomedullary and distal locking screws. C-arm fluoroscopy was used to locate the appropriate start point for the guide wire on the tip of the greater trochanter. This guide wire was advanced centrally down the proximal femur to the level of the lessor trochanter. Lateral images confirmed appropriate start point on the trochanter. Next the incision was extended about the guide wire to accommodate the nailing jig and this incision was carried down through the fascia and spread apart for ease of future instrument passage. The entry reamer was inserted along and was used to open the proximal femur while carefully monitoring fluoroscopy to confirm appropriate reaming proximally and not displacement of the proximal fragments. The reamer and guidewire were removed. The appropriately selected nail was assembled on the back table to the jig and tested to ensure proper passage of the cephalomedullary drill. This implant was manually inserted into the proximal femur and advanced to the appropriate level for cephalomedullary fixation with gentle mallet blows at the end. Another incision was made laterally to accommodate the cephalomedullary aiming tube and trochar, but the reduction had been lost most notably of the medial calcar with the shaft translated laterally and the femoral neck medial. Through this second incision a bone hook was carefully directed just anterior to the femur and placed on the medial distal aspect of the femoral neck basicervical region and with moderate direct lateral traction the medial cortex was able to be reduced into an anatomic position again. The shipping and receiving assistant maintained this bone hook lateral directed force reduction and the cephalomedullary aiming tube and trocar were advanced down to bone. The guide wire was then advanced into the femoral neck and adjusted on AP and lateral fluoroscopy until it was placed near subchondral bone in the center-center position in the femoral head. Care was taken to maintain the bone hook for adduction. The lateral view did show a posterior position of the guidewire, which was accepted given the complex nature of the fracture not wanting to remove the guidewire to rotate the nail and potentially displace the fracture into position where the excellent reduction that was now being maintained could not be obtained again. The depth gauge was used to measure the helical blade length accommodating for depth of guidewire insertion. Next, the drills were used to open the lateral cortex, drill over the wire, and the helical blade was advanced to the appropriate depth by gentle mallet blows while manually maintain reduction until the blade was down. The set screw was engaged and backed off 180 degrees to allow for rotationally-controlled sliding and compression. Traction was released, and the fracture was compressed appropriately via the buttress and compression nut on the jig, which showed the nail move slightly medially and good closure of the basicervical region fracture and excellent apposition of the medial calcar. Carefully, the bone hook was removed. The cephalomedullary aiming guide was removed. The distal locking screw guide was inserted through another small incision down the bone. The drill was used to drill for this static locking screw and measure the length. The appropriate length screw, slightly longer chosen to ensure distal nail stability, was then inserted bicortically. The jig was removed from the nail. Final AP and lateral fluoroscopic images were taken and confirmed appropriate fracture reduction and implant placement. All wounds were copiously irrigated. Deep layers were closed using 0 vicryl in an interrupted fashion. Subcutaneous tissue was closed using 2-0 monocryl in a buried interrupted fashion. Skin glue was applied to all incisions. Incisions were covered with Mepilex Band-Aids. The patient awoke from anesthesia without complication and was transferred to the recovery room in stable condition. Date of Procedure: 01/11/25
--- NOTE | 2025-01-11 16:01 | W.ORTHOCONSU ---
Date of service: 01/11/25 Time of Service: 16:02 Assessment and Plan Assessment and plan (1) Intertrochanteric fracture of left femur: Status: Acute Assessment and plan: 89-year-old female with left complex hip fracture: Basicervical, greater trochanter, and trans-trochanteric Pleasant conversive 89-year-old female resting on hospital stretcher. No complaints or concerns. On further questioning, admits to a fall at home yesterday the day before. Not entirely clear what happened. Was checking on her furnace and then found herself on the ground. Unable to walk due to left hip and thigh pain. No other injuries or musculoskeletal complaints now. Lives alone. Normally ambulates without any assist device. No pre-existing left hip or thigh problems. Exam shows comfortable patient. No signs of distress. Tenderness about the left lateral thigh, unable to straight leg raise, not vigorously tested. Compartments soft. Skin intact. Demonstrates intact motor about the foot and ankle with intact sensation. No signs of DVT. Right lower extremity nontender painless motion. Demonstrates good motor without issues bilateral upper extremities. Pelvis and left hip x-rays and CT scan show moderately displaced intertrochanteric hip fracture involving basicervical region, greater trochanter with some extension into the superior neck, and trans-trochanteric just above the level of the lesser trochanter. No pathologic lesions appreciated. Moderate hip sclerosis. No distal femoral problems or other problems in the pelvis seen. Discussed thoroughly with patient and over the phone with her son Justin. Patient evaluated by hospitalist and anesthesia teams. Appropriate candidate for surgery. Although somewhat unusual fracture pattern, I do not appreciate any significant femoral neck involvement, which might make replacement or different than usual trochanteric fixation more appropriate. Probably heightened risk for challenging reduction and healing. Would be complicated MAYA with low fracture level and greater trochanter fracture as well. Plan on trochanteric entry cephalomedullary nailing. Careful obtaining and maintaining of reduction. Decision to proceed with surgery today left hip closed reduction and internal fixation The risks, benefits, and alternatives were thoroughly discussed. Patient was counseled regarding pain management, expected postoperative course, and recovery timeline. All questions were answered. Informed consent was obtained. Agree and understand treatment plan. Breathing comfortably on room air. No coughs or wheezes. 2+ left radial pulse. Regular rate and rhythm. PFSH All Active Problems MARCELO (acute kidney injury) (Acute) Rhabdomyolysis (Acute) Intertrochanteric fracture of left femur (Acute) Allergic rhinitis (Acute) Lower urinary tract symptoms (LUTS) (Acute) Porter hematuria (Acute) Mass of torso (Acute) Medical History Fibrocystic breast disease Hypercalcemia Elevated alkaline phosphatase level Osteoporosis Hypothyroidism Anxiety 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 Skin lesion of face Swelling, mass, or lump in chest Hypertension Hyperlipidemia Lip lesion Social History Smoking/Tobacco Use Status: Former Tobacco Use Smoking risk assessment performed?: Yes Alcohol Intake: never Drug use: Never Substance use type: does not use Housing: house Do you feel safe at home: Yes Do you feel safe in your relationship?: Yes Results Last Vital Signs Temp 97.3 F L 01/11/25 09:58 Pulse 83 01/11/25 15:16 Resp 13 01/11/25 15:20 BP 130/69 01/11/25 15:16 Pulse Ox 97 01/11/25 13:50 Labs 01/11/25 10:46 01/11/25 10:46 Labs: Laboratory Results - last 24 hr 01/11/25 01/11/25 01/11/25 10:46 10:47 11:49 WBC 21.17 H RBC 3.83 L Hgb 11.7 Hct 35.4 L MCV 92 MCH 30.5 MCHC 33.1 RDW 13.1 Plt Count 245 MPV 9.8 Immature Gran % 0.6 Neutrophils % 90.0 Lymphocytes % 3.1 Monocytes % 6.0 Eosinophils % 0.0 Basophils % 0.3 Nucleated RBC % 0.0 Absolute Neutrophils 19.05 H Absolute Lymphocytes 0.66 L Absolute Monocytes 1.27 H Absolute Eosinophils 0.00 Absolute Basophils 0.06 PT 9.9 INR 1.0 APTT 24.1 VBG Lactate 4.8 H* Sodium 142 Potassium 4.4 Chloride 104 Carbon Dioxide 24.7 Anion Gap 13.3 H BUN 28 H Creatinine 2.3 H Est GFR (CKD-EPI 2020) 19.94 Glucose 152 H Calcium 10.2 H Total Bilirubin 0.61 AST 30 ALT 29 Alkaline Phosphatase 109 Creatine Kinase 432 H Troponin I 9 10 Total Protein 7.6 Albumin 3.6 TSH 6.41 H Free T4 0.94 Urine Color Urine Clarity Urine pH Ur Specific [place] Urine Protein Urine Ketones Urine Blood Urine Nitrite Urine Bilirubin Urine Urobilinogen Ur Leukocyte Esterase Urine RBC Urine WBC Ur Epithelial Cells Urine Crystals Urine Bacteria Urine Casts Urine Mucus Ur Culture Indicated? Urine Glucose COVID-19 Source Nasopharynx SARS-CoV-2 (PCR) Negative Influenza Type A (PCR) Negative Influenza Type B (PCR) Negative RSV (PCR) Negative 01/11/25 01/11/25 01/11/25 13:10 13:17 14:10 WBC RBC Hgb Hct MCV MCH MCHC RDW Plt Count MPV Immature Gran % Neutrophils % Lymphocytes % Monocytes % Eosinophils % Basophils % Nucleated RBC % Absolute Neutrophils Absolute Lymphocytes Absolute Monocytes Absolute Eosinophils Absolute Basophils PT INR APTT VBG Lactate Sodium Potassium Chloride Carbon Dioxide Anion Gap BUN Creatinine Est GFR (CKD-EPI 2020) Glucose Calcium Total Bilirubin AST ALT Alkaline Phosphatase Creatine Kinase Troponin I 14 Total Protein Albumin TSH Free T4 Urine Color Yellow Cancelled Urine Clarity Clear Cancelled Urine pH 5.0 Cancelled Ur Specific [place] 1.010 Cancelled Urine Protein Negative Cancelled Urine Ketones Negative Cancelled Urine Blood Small H Cancelled Urine Nitrite Negative Cancelled Urine Bilirubin Negative Cancelled Urine Urobilinogen 0.2 Cancelled Ur Leukocyte Esterase Negative Cancelled Urine RBC 3-5 H Urine WBC 0-2 Ur Epithelial Cells Few Urine Crystals Negative Urine Bacteria Few Urine Casts Negative Urine Mucus Negative Ur Culture Indicated? No Urine Glucose Negative Cancelled COVID-19 Source SARS-CoV-2 (PCR) Influenza Type A (PCR) Influenza Type B (PCR) RSV (PCR)
--- NOTE | 2025-01-11 16:03 | SUR.PREOP ---
patient arrived from ED via stretcher to room 215 in [facility] while waiting for surgery. VS WDL. Patient wrapped in warm blankets and placed on continuous cardiac and spO2 monitoring and central monitoring. MD in to see pt. Call mckoy within reach.
--- NOTE | 2025-01-11 16:12 | ANES.PREOP_ITS ---
General Info Date of Service Date Performed: 01/11/25 Height: 5 ft 1 in Weight: 49.895 kg Body Mass Index (BMI): 20.7 Surgical Procedure: Operation Date: 01/11/25 15:30 Proposed Procedure Side Surgeon p Hip TFNA Left Jayce Galo MD Meds Allergies and Home Medications Allergies Allergy/AdvReac Type Severity Reaction Status Date / Time grass pollen-perennial rye, Allergy Mild Skin Rash Verified 01/11/25 10:53 standar (grass poll-perennial rye,std) tetracycline AdvReac Mild Anaphylaxis Verified 01/11/25 10:53 brazil nuts Allergy Intermediate Swelling/Ed Uncoded 01/11/25 10:03 ad goats Allergy Unknown Unknown Uncoded 01/11/25 10:03 Home Medication ?Medication ?Instructions ?Recorded Tumeric 1 cap PO DAILY 05/11/15 coenzyme Q10 100 mg capsule 1 cap PO DAILY 05/11/15 (CoQ-10) red yeast rice 600 mg capsule 1 cap PO HS 05/11/15 thyroid (pork) 60 mg tablet 30 mg PO DAILY 05/11/15 ([place] Thyroid) vitamin B complex 1 cap PO DAILY 05/11/15 propranolol 10 mg tablet 10 mg PO BID 05/17/20 losartan 25 mg tablet 12.5 mg PO DAILY 11/28/20 aspirin 81 mg tablet,delayed 81 mg PO DAILY 07/16/23 release vitamin K2 1 tab PO 07/16/23 calcium-magnesium 1 tab PO DAILY 09/14/23 thyroid (pork) 30 mg tablet 30 mg PO DAILY 09/29/23 ([place] Thyroid) thyroid (pork) 60 mg tablet 60 mg PO DAILY 09/29/23 ([place] Thyroid) PFSH Active Problems Active Problems: Problem Status Onset Code MARCELO (acute kidney injury) Acute N17.9 Rhabdomyolysis Acute M62.82 Intertrochanteric fracture of left femur Acute S72.142A Allergic rhinitis Acute J30.9 Lower urinary tract symptoms (LUTS) Acute R39.9 [place] hematuria Acute R31.0 Mass of torso Acute R22.2 Medical History Medical History Fibrocystic breast disease Hypercalcemia Elevated alkaline phosphatase level Osteoporosis Hypothyroidism Anxiety 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 Skin lesion of face Swelling, mass, or lump in chest Hypertension Hyperlipidemia Lip lesion Tobacco Smoking/Tobacco Use Status: Former Tobacco Use Alcohol Alcohol Intake: never Substance Use Substance use: Never Substance use type: does not use Vital Signs and Lab Results Vital Signs Most Recent Vital Signs in EMR: Most Recent Vital Signs Temp Pulse Resp BP Pulse Ox 36.9 C 89 16 157/74 H 97 01/11/25 15:45 01/11/25 15:45 01/11/25 15:45 01/11/25 15:45 01/11/25 15:45 Lab Results 01/11/25 10:46 01/11/25 10:46 Blood Type / Crossmatch: 2 No Data to Display Complete Blood Count: 2 White Blood Count 21.17 10^3/uL (4.4-10.8) H 01/11/25 10:46 Red Blood Count 3.83 10^6/uL (3.93-5.22) L 01/11/25 10:46 Hemoglobin 11.7 g/dL (11.2-15.7) 01/11/25 10:46 Hematocrit 35.4 % (36.0-46.0) L 01/11/25 10:46 Platelet Count 245 10^3/uL (130-400) 01/11/25 10:46 Venous Blood Lactate 4.8 mmol/L (<or=2.0) H* 01/11/25 10:46 Complete Metabolic Panel: 2 Sodium 142 mmol/L (136-145) 01/11/25 10:46 Potassium 4.4 mmol/L (3.5-5.1) 01/11/25 10:46 Chloride 104 mmol/L (98-107) 01/11/25 10:46 Carbon Dioxide 24.7 mmol/L (21.0-32.0) 01/11/25 10:46 BUN 28 mg/dL (7-18) H 01/11/25 10:46 Creatinine 2.3 mg/dL (0.55-1.02) H 01/11/25 10:46 Est GFR (CKD-EPI 2020) 19.94 (mL/min/1.73m2) 01/11/25 10:46 Calcium 10.2 mg/dL (8.5-10.1) H 01/11/25 10:46 Albumin 3.6 g/dL (3.4-5.0) 01/11/25 10:46 Glucose 152 mg/dL (74-106) H 01/11/25 10:46 Liver Function Panel: 2 Alanine Aminotransferase (ALT/SGPT) 29 U/L (14-59) 01/11/25 10: 46 Aspartate Amino Transf (AST/SGOT) 30 U/L (15-37) 01/11/25 10:46 Coagulation Panel: 2 INR International Normalized Ratio 1.0 (0.9-1.1) 01/11/25 10:4 6 Prothrombin Time 9.9 sec (9.1-11.1) 01/11/25 10:46 Activated Partial Thromboplast Time 24.1 sec (20.6-30.2) 10:46 Cardiac Panel: 2 Troponin I 14 ng/L (<or=51) 01/11/25 Creatine Kinase 432 U/L (26-192) H 01/11/25 Arterial Blood Gas: 2 No Data to Display Venous Blood Gas: 2 No Data to Display Pancreas Panel: 2 No Data to Display Thyroid Panel: 2 Thyroid Stimulating Hormone (TSH) 6.41 uIU/mL (0.36-3.74) H 01/11/25 10:46 Infectious Disease: 2 Coronavirus (COVID-19)(PCR) Negative (Negative) 01/11/25 10:47 Coronavirus 2019 Source Nasopharynx 01/11/25 10:47 Influenza Virus Type A (PCR) Negative (Negative) 01/11/25 10:4 7 Influenza Virus Type B (PCR) Negative (Negative) 01/11/25 10:4 7 Respiratory Syncytial Virus (PCR) Negative (Negative) 01/11/25 10:47 Blood Cultures: 2 No Data to Display Toxicology Panel: 2 No Data to Display Imaging and Studies Imaging and Studies Study information below may be from another EMR and interpreted by another provider. Please see original notes in EMR for more complete details. EKG Summary: 01/11/25 SR Anesthesia Assessment and Plan Anesthesia History Personal History: No History of Anesthesia Complications Family History: No Family History of Anesthesia Complications Exercise Tolerance Exercise Tolerance: Metabolic Equivalents<4 Pertinent Negatives Pertinent Negatives: No Major Cardiovascular Symptoms or Complaints and No Major Pulmonary Symptoms or Complaints Cardiac & Pulmonary Exam Cardiac Exam: Normal S1/S2 Heart Sounds Pulmonary Exam: Clear Bilateral Breath Sounds Implantable Cardiac Device Does patient have a Pacemaker or an ICD?: No Airway Exam Known Difficult Airway: No Mallampati Class: 2 Mouth Opening: Normal (> 3cm) Thyromental Distance: Less than 3 cm Neck Range of Motion: Full ROM Neck Circumference: Normal Teeth Condition: Normal Dentition (prominent front teeth) ASA Classification ASA Score: ASA 3 Emergency Case?: No NPO Status NPO Status: NPO Clears >2 hours, Solids >8 hours Anesthesia Plan Resuscitation Status: Full Code Anesthesia Technique: General Anesthesia Airway Planned: Endotracheal Tube Monitors Used: Standard Monitors
[2025-01-11] MEDS: Lactated Ringers 1,000 ML 30 ML IV (16:43)
[2025-01-11] MEDS: ceFAZolin 2 GM/50 ML BAG 50 GM (16:48)
[2025-01-11] MEDS: TRANEXAMIC ACID/SOD. CHL. 1,000 MG/100 ML BAG 100 MG (16:59)
[2025-01-11] MEDS: Bupivacaine 0.25% Pres-Free W/EPI 30 ML VIAL (17:32)
[2025-01-11] MEDS: ceFAZolin 1 GM/50 ML BAG IVPB (20:59)
--- NOTE | 2025-01-12 00:44 | W.PC.ACHO ---
Registration Status: Primary Language: Preferred Language: ED Information & Data Chief Complaint Fall/Non TraumaCriteria 01/11/25 12:20 Other Complaint Orthopedic 01/11/25 09:58 Triage Note PT found on the ground at 01/11/25 09:58 the bottom of a set of stairs. Last known well 1700 01/10. PT does not remember how she got there or what happened. Tenderness on R hip, mild bruising present. PT was found kneeling up against a wall. Medical / Surgical History (Last Reviewed 01/11/25 @ 16:04 by Jayce Galo MD) Fibrocystic breast disease Hypercalcemia Elevated alkaline phosphatase level Osteoporosis Hypothyroidism Anxiety 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 Skin lesion of face Swelling, mass, or lump in chest Hypertension Hyperlipidemia Lip lesion Most Recent Vital Signs Temperature 36.7 C 01/11/25 21:24 Temperature Source Temporal Artery Scan 01/11/25 21:24 Pulse 89 01/11/25 21:24 Pulse Rhythm Regular 01/11/25 19:25 Pulse 71 01/11/25 18:55 Respiratory Rate 15 01/11/25 21:24 Respiratory Effort Normal 01/11/25 19:25 Respiratory Depth Normal 01/11/25 19:25 Respiratory Pattern Normal 01/11/25 19:25 Blood Pressure 128/61 01/11/25 21:24 Blood Pressure Mean 93 01/11/25 18:55 Blood Pressure Position Supine 01/11/25 15:45 Pulse Oximetry 98 01/11/25 21:24 Respiratory End-tidal CO2 31 01/11/25 19:15 Oxygen Delivery Method Room Air 01/11/25 21:24 Oxygen Flow Rate 0 01/11/25 21:24 Pain Level 0 01/11/25 21:00 Allergies grass pollen-perennial rye, standar (grass poll-perennial rye,std) Allergy (Mild, Verified 01/11/25 10:53) Skin Rash tetracycline Adverse Reaction (Mild, Verified 01/11/25 10:53) Anaphylaxis brazil nuts Allergy (Intermediate, Uncoded 01/11/25 10:03) Swelling/Edema goats Allergy (Unknown, Uncoded 01/11/25 10:03) Unknown Active Medications Generic Name Dose Route Start Last Admin Trade Name Freq PRN Reason Stop Dose Admin Cefazolin Sodium/Dextrose 1 gm in 50 mls @ 100 mls/hr 01/11/25 20:00 02/27/25 21:49 Ancef Duplex IVPB 01/12/25 08:29 Infused Q12H IGNACIA Infusion Lactobacillus Acidophilus/Casei 1 cap 01/11/25 12:30 01/11/25 21:51 L. Acidophilus, Casei, Rhamnosus Cap PO 02/10/25 12:29 Not Given DAILY IGNACIA Propranolol HCl 10 mg 01/11/25 20:00 01/11/25 21:51 Propranolol 10 Mg Tab PO Not Given BID IGNACIA IV IV Catheter Type [Right Peripheral IV Antecubital] IV Catheter Type [Left Peripheral IV Antecubital] IV Catheter Gauge [Right 18 Antecubital] IV Catheter Gauge [Left 20 Antecubital] Diet Orders Category Date Time Status Heart Healthy Eating [DIET] Nutrition 01/11/25 Dinner Active Diagnostics 01/12/25 01/11/25 01/11/25 Range/Units 05:35 14:10 13:17 WBC Pending (4.4-10.8) 10^3/uL RBC Pending (3.93-5.22) 10^6/uL Hgb Pending (11.2-15.7) g/dL Hct Pending (36.0-46.0) % MCV Pending (80-95) fL MCH Pending (27.0-33.0) pg MCHC Pending (32.0-36.0) % RDW Pending (11.7-14.6) % Plt Count Pending (130-400) 10^3/uL MPV Pending (8.0-11.0) fL Immature Gran % Pending % Neutrophils % Pending % Lymphocytes % Pending % Monocytes % Pending % Eosinophils % Pending % Basophils % Pending % Nucleated RBC % (0.0-0.3) % Absolute Neutrophils Pending (1.2-6.7) 10^3/uL Absolute Lymphocytes Pending (1.2-3.4) 10^3/uL Absolute Monocytes Pending (0.1-0.8) 10^3/uL Absolute Eosinophils Pending (0.0-0.7) 10^3/uL Absolute Basophils Pending (0.0-0.2) 10^3/uL PT (9.1-11.1) sec INR (0.9-1.1) APTT (20.6-30.2) sec VBG Lactate (<or=2.0) mmol/L Sodium Pending (136-145) mmol/L Potassium Pending (3.5-5.1) mmol/L Chloride Pending (98-107) mmol/L Carbon Dioxide Pending (21.0-32.0) mmol/L Anion Gap Pending (3-11) mmol/L BUN Pending (7-18) mg/dL Creatinine Pending (0.55-1.02) mg/dL Est GFR (CKD-EPI 2020) Pending (mL/min/1.73m2) Glucose Pending (74-106) mg/dL Calcium Pending (8.5-10.1) mg/dL Magnesium Pending Total Bilirubin (0.2-1.0) mg/dL AST (15-37) U/L ALT (14-59) U/L Alkaline Phosphatase (46-116) U/L Creatine Kinase Pending (26-192) U/L Troponin I 14 (<or=51) ng/L Total Protein (6.4-8.2) g/dL Albumin (3.4-5.0) g/dL TSH (0.36-3.74) uIU/mL Free T4 (0.76-1.46) ng/dL Urine Color Cancelled (Yellow) Urine Clarity Cancelled (Clear) Urine pH Cancelled (5-8) Ur Specific [place] Cancelled (1.005-1.025) Urine Protein Cancelled (Neg-Trace) mg/dL Urine Ketones Cancelled (Negative) mg/dL Urine Blood Cancelled (Negative) Urine Nitrite Cancelled (Negative) Urine Bilirubin Cancelled (Negative) Urine Urobilinogen Cancelled (Up to 0.2) mg/dL Ur Leukocyte Esterase Cancelled (Negative) Urine RBC (0-2) HPF Urine WBC (0-5) HPF Ur Epithelial Cells (Negative) HPF Urine Crystals (Negative) HPF Urine Bacteria (Negative) HPF Urine Casts (Negative) LPF Urine Mucus (Negative) Ur Culture Indicated? Urine Glucose Cancelled (Negative) mg/dL COVID-19 Source SARS-CoV-2 (PCR) (Negative) Influenza Type A (PCR) (Negative) Influenza Type B (PCR) (Negative) RSV (PCR) (Negative) 02/01/11/25 01/11/25 Range/Units 13:10 11:49 10:47 WBC (4.4-10.8) 10^3/uL RBC (3.93-5.22) 10^6/uL Hgb (11.2-15.7) g/dL Hct (36.0-46.0) % MCV (80-95) fL MCH (27.0-33.0) pg MCHC (32.0-36.0) % RDW (11.7-14.6) % Plt Count (130-400) 10^3/uL MPV (8.0-11.0) fL Immature Gran % % Neutrophils % % Lymphocytes % % Monocytes % % Eosinophils % % Basophils % % Nucleated RBC % (0.0-0.3) % Absolute Neutrophils (1.2-6.7) 10^3/uL Absolute Lymphocytes (1.2-3.4) 10^3/uL Absolute Monocytes (0.1-0.8) 10^3/uL Absolute Eosinophils (0.0-0.7) 10^3/uL Absolute Basophils (0.0-0.2) 10^3/uL PT (9.1-11.1) sec INR (0.9-1.1) APTT (20.6-30.2) sec VBG Lactate (<or=2.0) mmol/L Sodium (136-145) mmol/L Potassium (3.5-5.1) mmol/L Chloride (98-107) mmol/L Carbon Dioxide (21.0-32.0) mmol/L Anion Gap (3-11) mmol/L BUN (7-18) mg/dL Creatinine (0.55-1.02) mg/dL Est GFR (CKD-EPI 2020) (mL/min/1.73m2) Glucose (74-106) mg/dL Calcium (8.5-10.1) mg/dL Magnesium Total Bilirubin (0.2-1.0) mg/dL AST (15-37) U/L ALT (14-59) U/L Alkaline Phosphatase (46-116) U/L Creatine Kinase (26-192) U/L Troponin I 10 (<or=51) ng/L Total Protein (6.4-8.2) g/dL Albumin (3.4-5.0) g/dL TSH (0.36-3.74) uIU/mL Free T4 (0.76-1.46) ng/dL Urine Color Yellow (Yellow) Urine Clarity Clear (Clear) Urine pH 5.0 (5-8) Ur Specific [place] 1.010 (1.005-1.025) Urine Protein Negative (Neg-Trace) mg/dL Urine Ketones Negative (Negative) mg/dL Urine Blood Small H (Negative) Urine Nitrite Negative (Negative) Urine Bilirubin Negative (Negative) Urine Urobilinogen 0.2 (Up to 0.2) mg/dL Ur Leukocyte Esterase Negative (Negative) Urine RBC 3-5 H (0-2) HPF Urine WBC 0-2 (0-5) HPF Ur Epithelial Cells Few (Negative) HPF Urine Crystals Negative (Negative) HPF Urine Bacteria Few (Negative) HPF Urine Casts Negative (Negative) LPF Urine Mucus Negative (Negative) Ur Culture Indicated? No Urine Glucose Negative (Negative) mg/dL COVID-19 Source Nasopharynx SARS-CoV-2 (PCR) Negative (Negative) Influenza Type A (PCR) Negative (Negative) Influenza Type B (PCR) Negative (Negative) RSV (PCR) Negative (Negative) 01/11/25 Range/Units 10:46 WBC 21.17 H (4.4-10.8) 10^3/uL RBC 3.83 L (3.93-5.22) 10^6/uL Hgb 11.7 (11.2-15.7) g/dL Hct 35.4 L (36.0-46.0) % MCV 92 (80-95) fL MCH 30.5 (27.0-33.0) pg MCHC 33.1 (32.0-36.0) % RDW 13.1 (11.7-14.6) % Plt Count 245 (130-400) 10^3/uL MPV 9.8 (8.0-11.0) fL Immature Gran % 0.6 % Neutrophils % 90.0 % Lymphocytes % 3.1 % Monocytes % 6.0 % Eosinophils % 0.0 % Basophils % 0.3 % Nucleated RBC % 0.0 (0.0-0.3) % Absolute Neutrophils 19.05 H (1.2-6.7) 10^3/uL Absolute Lymphocytes 0.66 L (1.2-3.4) 10^3/uL Absolute Monocytes 1.27 H (0.1-0.8) 10^3/uL Absolute Eosinophils 0.00 (0.0-0.7) 10^3/uL Absolute Basophils 0.06 (0.0-0.2) 10^3/uL PT 9.9 (9.1-11.1) sec INR 1.0 (0.9-1.1) APTT 24.1 (20.6-30.2) sec VBG Lactate 4.8 H* (<or=2.0) mmol/L Sodium 142 (136-145) mmol/L Potassium 4.4 (3.5-5.1) mmol/L Chloride 104 (98-107) mmol/L Carbon Dioxide 24.7 (21.0-32.0) mmol/L Anion Gap 13.3 H (3-11) mmol/L BUN 28 H (7-18) mg/dL Creatinine 2.3 H (0.55-1.02) mg/dL Est GFR (CKD-EPI 2020) 19.94 (mL/min/1.73m2) Glucose 152 H (74-106) mg/dL Calcium 10.2 H (8.5-10.1) mg/dL Magnesium Total Bilirubin 0.61 (0.2-1.0) mg/dL AST 30 (15-37) U/L ALT 29 (14-59) U/L Alkaline Phosphatase 109 (46-116) U/L Creatine Kinase 432 H (26-192) U/L Troponin I 9 (<or=51) ng/L Total Protein 7.6 (6.4-8.2) g/dL Albumin 3.6 (3.4-5.0) g/dL TSH 6.41 H (0.36-3.74) uIU/mL Free T4 0.94 (0.76-1.46) ng/dL Urine Color (Yellow) Urine Clarity (Clear) Urine pH (5-8) Ur Specific [place] (1.005-1.025) Urine Protein (Neg-Trace) mg/dL Urine Ketones (Negative) mg/dL Urine Blood (Negative) Urine Nitrite (Negative) Urine Bilirubin (Negative) Urine Urobilinogen (Up to 0.2) mg/dL Ur Leukocyte Esterase (Negative) Urine RBC (0-2) HPF Urine WBC (0-5) HPF Ur Epithelial Cells (Negative) HPF Urine Crystals (Negative) HPF Urine Bacteria (Negative) HPF Urine Casts (Negative) LPF Urine Mucus (Negative) Ur Culture Indicated? Urine Glucose (Negative) mg/dL COVID-19 Source SARS-CoV-2 (PCR) (Negative) Influenza Type A (PCR) (Negative) Influenza Type B (PCR) (Negative) RSV (PCR) (Negative) Intake and Output - 24 Hour Total 01/11/25 09:34 thru 01/11/25 22:46 Intake Total 2049 Output Total 230 Balance 1820 Weight 49.895 kg Intake: IV 2049 Output: Urine 200 Estimated Blood Loss 30 Other: Urine Color Yellow Urine Appearance Clear Emesis Description None Urinary Catheter Urinary Catheter Date of 01/11/25 Insertion [Urethral (Walker)] Time of insertion [Urethral ( 13:16 Walker)] Falls Risk Assessment History of Falls Admit Due to Fall 01/11/25 19:25 Contributing Factors Impairments,Medications 01/11/25 19:25 Ambulatory Aids Uses ambulatory device + 01/11/25 19:25 Tubes/Lines With any additional score 01/11/25 19:25 Gait Evaluation W/any additional score 01/11/25 19:25 Cognition Cognitive impairment 01/11/25 19:25 Fall Total Score 116 01/11/25 19:25 Level of Risk Maximum Risk 01/11/25 19:25 Problems (Last Reviewed 01/11/25 @ 16:04 by Jayce Galo MD) MARCELO (acute kidney injury) (Acute) Rhabdomyolysis (Acute) Intertrochanteric fracture of left femur (Acute) v v v v v v v v v Sending and/or Receiving Nurses: Please use comment section below to note any information pertinent to the patient hand-off not included above. Information / Comments: Pt arrived to unit to Rm [id number] via stretcher Report received from: Tasha Youngblood Rn
[2025-01-12 01:30] VITALS: BP 119/62; PULSE 90; RESP 16; TEMP 37.4; O2SAT 95
[2025-01-12 06:37] VITALS: BP 117/70; PULSE 94; RESP 16; TEMP 37.3; O2SAT 94
[2025-01-12 07:39] LABS: Absolute Basophil Count 0.03 10^3/uL (0.0-0.2); Absolute Monocyte Count 1.27 10^3/uL (0.1-0.8); Basophils % 0.2 %; Eosinophils % 0.1 %; HCT 26.1 % (36.0-46.0); HGB 8.8 g/dL (11.2-15.7); Immature Grans % 0.6 %; Lymphocytes % 6.8 %; MCH 30.6 pg (27.0-33.0); MCHC 33.7 % (32.0-36.0); MCV 91 fL (80-95); Monocytes % 8.2 %; Neutrophils % 84.1 %; Platelet Count 182 10^3/uL (130-400); RBC 2.88 10^6/uL (3.93-5.22); RDW 13.2 % (11.7-14.6); RDW-SD 43.8 fL; WBC 15.48 10^3/uL (4.4-10.8)
[2025-01-12] MEDS: Thyroid 60 MG TAB 90 MG PO (07:51)
[2025-01-12] MEDS: Aspirin E.C. 81 MG TABEC PO (07:52)
[2025-01-12] MEDS: Propranolol 10 MG TAB PO (07:52)
[2025-01-12] MEDS: ceFAZolin 1 GM/50 ML BAG IVPB (07:53)
[2025-01-12 07:54] LABS: Anion Gap 8.5 mmol/L (3-11); BUN 29 mg/dL (7-18); CO2 26.5 mmol/L (21.0-32.0); CREATININE 1.2 mg/dL (0.55-1.02); Calcium 9.2 mg/dL (8.5-10.1); Chloride 107 mmol/L (98-107); Estimated GFR 43.54 (mL/min/1.73m2); Glucose 91 mg/dL (74-106); Magnesium 1.7 mg/dL (1.8-2.4); Potassium 4.5 mmol/L (3.5-5.1); Sodium 142 mmol/L (136-145)
[2025-01-12] MEDS: Normal Saline 1,000 ML 100 ML IV (07:56)
[2025-01-12 07:58] LABS: Absolute Eosinophil Count 0.02 10^3/uL (0.0-0.7); Absolute Lymphocyte Count 1.05 10^3/uL (1.2-3.4); Absolute Neutrophil Count 13.02 10^3/uL (1.2-6.7)
[2025-01-12 07:59] LABS: Creatine Kinase 897 U/L (26-192)
--- NOTE | 2025-01-12 08:04 | PGE_ITS ---
Date of Service Date of service: 01/12/25 Time of Service: 08:05 Assessment and Plan Assessment and plan (1) Intertrochanteric fracture of left femur: Status: Acute Assessment and plan: 89-year-old female postop day #1 status post left hip intramedullary nailing Patient resting comfortably in bed with SCDs on. Pleasant. Probably baseline confusion or cognitive impairment. She reports mild hip discomfort. Denies any discomfort in any other areas. Left hip dressings are clean, dry, and intact. Wiggles toes. Sensation intact to light touch. Left elbow medial and lateral ecchymoses. Demonstrates active elbow flexion and extension without any discomfort. No discomfort with palpation of the medial and lateral elbow. I have placed the following orders?24 hours postoperative antibiotics and physical therapy: Weightbearing as tolerated with assist device. Acetaminophen, naproxen, and diet. Appreciate medical management- Please discontinue new Walker catheter postop day #1 assuming appropriate urine output and improving creatinine. Start chemical DVT prophylaxis, renal dose: Typically, SQH or Lovenox while inpatient and aspirin 81 mg twice daily to complete 30 days of DVT prophylaxis as outpatient. Continue SCDs and/or KARISSA hose Multimodal pain control Discharge when medically appropriate Follow-up with Dr. Galo outpatient [facility] in about 2-3 weeks Objective Last Vital Signs Temp 99.1 F 01/12/25 06:37 Pulse 94 H 01/12/25 06:37 Resp 16 01/12/25 06:37 BP 117/70 01/12/25 06:37 Pulse Ox 94 01/12/25 06:37 Laboratory Results - last 24 hr 01/11/25 01/11/25 01/11/25 10:46 10:47 11:49 WBC 21.17 H RBC 3.83 L Hgb 11.7 Hct 35.4 L MCV 92 MCH 30.5 MCHC 33.1 RDW 13.1 Plt Count 245 MPV 9.8 Immature Gran % 0.6 Neutrophils % 90.0 Lymphocytes % 3.1 Monocytes % 6.0 Eosinophils % 0.0 Basophils % 0.3 Nucleated RBC % 0.0 Absolute Neutrophils 19.05 H Absolute Lymphocytes 0.66 L Absolute Monocytes 1.27 H Absolute Eosinophils 0.00 Absolute Basophils 0.06 PT 9.9 INR 1.0 APTT 24.1 VBG Lactate 4.8 H* Sodium 142 Potassium 4.4 Chloride 104 Carbon Dioxide 24.7 Anion Gap 13.3 H BUN 28 H Creatinine 2.3 H Est GFR (CKD-EPI 2020) 19.94 Glucose 152 H Calcium 10.2 H Magnesium Total Bilirubin 0.61 AST 30 ALT 29 Alkaline Phosphatase 109 Creatine Kinase 432 H Troponin I 9 10 Total Protein 7.6 Albumin 3.6 TSH 6.41 H Free T4 0.94 Urine Color Urine Clarity Urine pH Ur Specific [place] Urine Protein Urine Ketones Urine Blood Urine Nitrite Urine Bilirubin Urine Urobilinogen Ur Leukocyte Esterase Urine RBC Urine WBC Ur Epithelial Cells Urine Crystals Urine Bacteria Urine Casts Urine Mucus Ur Culture Indicated? Urine Glucose COVID-19 Source Nasopharynx SARS-CoV-2 (PCR) Negative Influenza Type A (PCR) Negative Influenza Type B (PCR) Negative RSV (PCR) Negative 01/11/25 01/11/25 01/11/25 13:10 13:17 14:10 WBC RBC Hgb Hct MCV MCH MCHC RDW Plt Count MPV Immature Gran % Neutrophils % Lymphocytes % Monocytes % Eosinophils % Basophils % Nucleated RBC % Absolute Neutrophils Absolute Lymphocytes Absolute Monocytes Absolute Eosinophils Absolute Basophils PT INR APTT VBG Lactate Sodium Potassium Chloride Carbon Dioxide Anion Gap BUN Creatinine Est GFR (CKD-EPI 2020) Glucose Calcium Magnesium Total Bilirubin AST ALT Alkaline Phosphatase Creatine Kinase Troponin I 14 Total Protein Albumin TSH Free T4 Urine Color Yellow Cancelled Urine Clarity Clear Cancelled Urine pH 5.0 Cancelled Ur Specific [place] 1.010 Cancelled Urine Protein Negative Cancelled Urine Ketones Negative Cancelled Urine Blood Small H Cancelled Urine Nitrite Negative Cancelled Urine Bilirubin Negative Cancelled Urine Urobilinogen 0.2 Cancelled Ur Leukocyte Esterase Negative Cancelled Urine RBC 3-5 H Urine WBC 0-2 Ur Epithelial Cells Few Urine Crystals Negative Urine Bacteria Few Urine Casts Negative Urine Mucus Negative Ur Culture Indicated? No Urine Glucose Negative Cancelled COVID-19 Source SARS-CoV-2 (PCR) Influenza Type A (PCR) Influenza Type B (PCR) RSV (PCR) 01/12/25 06:38 WBC 15.48 H RBC 2.88 L Hgb 8.8 L D Hct 26.1 L MCV 91 MCH 30.6 MCHC 33.7 RDW 13.2 Plt Count 182 MPV 10.0 Immature Gran % 0.6 Neutrophils % 84.1 Lymphocytes % 6.8 Monocytes % 8.2 Eosinophils % 0.1 Basophils % 0.2 Nucleated RBC % 0.0 Absolute Neutrophils 13.02 H Absolute Lymphocytes 1.05 L Absolute Monocytes 1.27 H Absolute Eosinophils 0.02 Absolute Basophils 0.03 PT INR APTT VBG Lactate Sodium 142 Potassium 4.5 Chloride 107 Carbon Dioxide 26.5 Anion Gap 8.5 BUN 29 H Creatinine 1.2 H D Est GFR (CKD-EPI 2020) 43.54 Glucose 91 Calcium 9.2 Magnesium 1.7 L Total Bilirubin AST ALT Alkaline Phosphatase Creatine Kinase 897 H Troponin I Total Protein Albumin TSH Free T4 Urine Color Urine Clarity Urine pH Ur Specific [place] Urine Protein Urine Ketones Urine Blood Urine Nitrite Urine Bilirubin Urine Urobilinogen Ur Leukocyte Esterase Urine RBC Urine WBC Ur Epithelial Cells Urine Crystals Urine Bacteria Urine Casts Urine Mucus Ur Culture Indicated? Urine Glucose COVID-19 Source SARS-CoV-2 (PCR) Influenza Type A (PCR) Influenza Type B (PCR) RSV (PCR) Time Spent with Patient Time Spent with Patient: <25 minutes Time was spent: preparing to see the patient(eg.review tests), referring, comm unicating with other health intensive care medicine specialist, indepentently interpreting results, counseling the patient and care coordination
--- NOTE | 2025-01-12 08:49 | INITIAL_ITS ---
Date of service: 01/12/25 Time of Service: 08:49 Care Management Initial Assmt Initial Assessment Reason for Hospitalization: fractured femur Functional Status/Living Situation Patient Presentation: Dulce was admitted on 01/11/25 with a fractured femur. She went to the OR on 01/11/25 for a hip repair. Dulce was sound asleep each time CM attempted top meet with her and CM chose not to wake her. Per staff. CM contacted her son Everardo and was able to meet with him to gather information and begin discharge planning. Dulce lives alone in a single family home in [place], [place] She has been very inde pendent and performs her own ADLs and IADLs and continues to drive short distances. She does not use a cane or walker and does not receive any community services. Dulce has 2 sons. Everardo lives locally and his brother Stephen lives in [place]. Everardo shared that physically Dulce is still quite spry but that she is having some memory issues. Both he and his brother call her every day and Everardo visits as often as he can. Dulce had a PT evaluation today and SNF for short term rehab was recommended. Everardo verbalized that he believes it would be in Dulce's best interest, but that, of course, it will be up to her. If she accepts the recommendation, referrals will be sent to [facility] and to [facility]. 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 Medications Medication Management: No Issues/Barriers identified Advance Directives Advance Directives: Do you have an Advance Directive: Y 10/05/14 14:31 AD On File at [facility]: Y 09/01/13 11:10 Date Asked 09/22/10 01/12/25 03:45 AD Date Reviewed 01/11/25 01/11/25 12:04 COLST On File at [facility] COLST Date Scanned Code Status Resuscitation Status Full Code Portal Pt does not currently have a portal and education provided: Yes Insurance Coverage/Financial Issues Insurance: Medicare BC/BS out of state Care Team Visit Care Team Role Provider Type Rosa Viera Primary Care Provider [facility] PRACTICE REGISTERED NURSE InPatient Ángel Mahmood Other Providers OTHER Wicho Barreto DO Emergency Provider [facility] STAFF PHYSICIAN Arnel Hinkle DO Admit Provider [facility] STAFF PHYSICIAN Attending Provider Discharge Potential Discharge Needs: PCP F/U Appt Anticipated Barriers to Discharge: None Identified Patient/Family Education Needs: Review discharge instructions, discuss Ask Me Three Transportation: RCT Plan: Dulce will likely need to go to a SNF for short term rehab prior to returning home. She will follow up with her PCP and plan of care. CM will follow and continue to assess for discharge needs. 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
--- NOTE | 2025-01-12 10:00 | IN_ITS ---
PT Notes Visit Reasons: Hip Fx Physical Therapy Inpatient Initial Evaluation Date: 01/12/2025 Referring Doctor: Dr Galo PT Orders: PT CONSULT: s/p Ortho surgery Precautions:WBAT LLE, Fall risk, Standard, Walker, IV Access RUE Patient Profile/Admitting Diagnosis: Patient is a 89-year-old female presented t o the ED on 01/11/25 via EMS after her son found her down on the floor near the stairs, incontinent of bowel. Patient last known okay at 5 PM on 01/10/2025. patient reporting left hip pain x-rays revealed intertrochanteric fracture. Patient to OR on 01/11/2025 for intramedullary nailing by Dr. Galo under general anesthesia. Pt also diagnosed with MARCELO and Rhabdomylosis. PMHX: MARCELO (acute kidney injury) (Acute) Rhabdomyolysis (Acute) Intertrochanteric fracture of left femur (Acute) Allergic rhinitis (Acute) Lower urinary tract symptoms (LUTS) (Acute) Porter hematuria (Acute) Mass of torso (Acute) Medical History Fibrocystic breast disease Hypercalcemia Elevated alkaline phosphatase level Osteoporosis Hypothyroidism Anxiety 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 Skin lesion of face Swelling, mass, or lump in chest Hypertension Hyperlipidemia Lip lesion Social History/Home Situation: pt resides alone in a single family multilevel home with 4 MIRANDA with rail from front and 6STE from back. pt reports she has a FOS to her bedroom but she sleeps on the couch and a FOS to the basement. Pt repors she cooks her own Vegetarian meals. her son takes her to appointments or the store to shop. She is able to perform her own ADL and bills. Equipment Owned/DME: old cane that was her grandmothers, grab bar near tub; Issued and fitted for FWW from [facility]. Subjective:Pt reports she does not know how the fall happened she just remembers waking up when her son got there. She reports she has a cat Eden at home which she has to bend down to the floor to feed twice a day as well as provide water. Objective: General Observation: thin elderly female upright in bed. She awake and smiling. Mental Status: Alert and oriented x 4, able to follow instructions and answer questions. noted some repetitive statements throughout the session regarding her cat. Pain: left hip 2/10 at rest , with movement 4/10 ( pt required visual face scale for assessment) ROM: BUE: WFL Right Lower Extremity: WFL Left Lower Extremity: WFL except hip flexion 95 degrees, abduction: 10 degrees, extension 5 degrees. Posture: rounded shoulders forward head Strength: [] Right Upper Extremity: >/= to 3/5 Left Upper Extremity: >/= to 3/5 Right Lower Extremity: Hip flexion: 3+ /5; hip abduction: 3+ /5; hip extension: 3+ /5; knee extension: 3+/5; knee flexion: 3+ /5 ankle DF: 3 /5 ; ankle PF: 3 /5 Left Lower Extremity: Hip flexion: 2+ /5; hip abduction: 2- /5; hip extension: 2+ /5; knee extension: 3-/5; knee flexion: 2+ /5 ankle DF: 3/5 ; ankle PF: 3 /5 Sensation: intact Bed Mobility/Transfers: [] Supine to sit mod A with cues for sequencing Sit to stand min A with cues for hand placement (verbal and tactile) Stand to sit Min A FWW cues for hand placement (verbal and tactile) Bed to chair min A with FWW cues for safe approach to surface Gait: amb 25 feet with FWW min A with forward trunk increased B knee flexion increased weight shift to the right. excessive WB through BUE, impaired step height /foot clearance LLE. absent heel strike step to pattern. Pt requires verbal and tactile cues for FWW management to ensure stable DARYL Stairs Pt unable to participate in assessment of stairs Balance: [] Static Sitting:Normal Dynamic Sitting: Good - Static Standing: Fair- Dynamic Standing: Poor+ Special Tests: [] Mobility Limitations Standardized Measure [] [facility] AM-PAC 6 clicks Basic Mobility Inpatient Short Form: [] Raw Score: 14 CMS Score: 61.29% Informed Consent/Education: Patient instructed in purpose of PT consult. Treatment: 22635:Packet containing hip exercise protocol has been given to patient. Education and training on initial set of exercises have been completed with patient. 22564: transfers from various surfaces with FWW ( chair bed and commode) with min A and verbal and tactile cues for hand placement. and sequencing of FWW inc luding walker position and body orientation within frame of FWW. including short distances ~12 feet x 3. -discussed with pt option to possible leave her cats food and water on a counter or elevated surface so she does not have to bend over. Also discussed use of a long PVC pipe to place in the bowl to the pour food and water to a dish that is already on the floor. However the cat also receives wet food which would not work with the PVC pipe. Assessment: Pt is 89 yo female with impaired short term memory / confusion. Patient presents with clinical signs and symptoms consistent with current/ admitting diagnoses that have resulted to mobility limitations, gait instability, generalized weakness, and impairment of motor control as demonstrated by the following impairment level findings: 1. Decreased strength to left LE major muscle groups 2. Impaired standing balance 3. Limitation of joint range of motion in left hip 4. pain left hip 5. impaired functional activity tolerance sitting and standing 6. Poor insight into unsafe situations/ impaired safety awareness. Impairments are contributing to the following functional limitations: 1. Inability to safely ambulate without assistive device and assistance 2. Increase completion time for mobility ADL performance 3. Increased fall risk 4. decline in bed mobility skills 5. decline in transfer skills 6. inability to perform stairs safely to enter and exit her home Patient is assessed as a moderate complexity based on the following: History: 89-year-old female with impairment level findings, functional limitations, and past medical history as indicated above Examination: Demonstrable impairment in strength, balance, and mobility level with underlying impairments and functional limitations as documented above Presentation: evolving Decision Making:moderate Goals: 1. bed mobility with supervision 2. transfers with FWW SBA 3. ambulate with FWW SBA 150 feet x 2 4. min A 4 steps with rail to safely enter and exit home 5. supervised with [facility] for strengthening and ROM Plan of Care/Treatment Plan: 1-2x/day, 7 days/week x 1 week. Plan of care has been reviewed with the EXPEDITER CLERK providing the service under Physical Therapy direction. Initiate Physical Therapy intervention for strengthening, bed mobility, transfers, gait, stairs, balance training, use of assistive device. DISCHARGE RECOMMENDATIONS: Short term SNF prior to discharge to home TREATMENT CODE/TIME: 01310,22307,62922/ [id number] Thank you for the opportunity to participate in the care of this patient. Magali Sow PT [facility]
[2025-01-12 11:54] VITALS: BP 100/65; PULSE 80; RESP 16; TEMP 37.3; O2SAT 96
[2025-01-12] MEDS: Enoxaparin 30 MG/0.3 ML SYR SC (13:32)
--- NOTE | 2025-01-12 14:02 | W.PM.PROGNOT ---
Date of Service Date of service: 01/12/25 Time of Service: 14:02 Assessment and Plan Assessment and plan (1) Intertrochanteric fracture of left femur: Status: Acute Assessment and plan: - now POD #1 L hip IMN - seems comfortable with current pain regimen - PT/OT as able - lovenox ordered for DVT ppx, can liner roll changer to [facility] on discharge (2) MARCELO (acute kidney injury): Status: Acute Assessment and plan: - suspect this is a combination of dehydration and less likely mild rhabdo. much improved today with Cr 2.3 ----> 1.2 - continue IVF as ordered another 24 hours - monitor BP, I/O (3) Rhabdomyolysis: Status: Acute Assessment and plan: - hydrate as noted above - CPK elevated today to 897 but patient had ortho surgery yesterday (4) Hypertension: Assessment and plan: - will continue propanolol per outpatient dosing - hold losartan due to MARCELO (5) Hyperlipidemia: Assessment and plan: - on red yeast rice (6) Hypothyroidism: Assessment and plan: - on armor thyroid Subjective Subjective Interval history since last seen: Patient seen and examined. POD#1 L hip IMN. Found sitting on chair. Looks comfortable. Denies any pain. Confused, did not recall that she had any surgery yesterday. Vitals stable. Exam Const General: cooperative, comfortable, no acute distress and frail appearing Orientation: alert and awake HENMN Head: normocephalic and atraumatic Chest Chest: normal inspection of the chest Resp Effort & Inspection: normal respiratory effort Auscultation: clear to auscultation bilaterally, no rales, no rhonchi and no wheezes Cardio Rate: regular rate Rhythm: regular rhythm Heart Sounds: S1 normal and S2 normal GI Inspection: normal to inspection Palpation: soft and no hepatosplenomegaly Auscultation: normal bowel sounds Skin General skin exam: no rashes or lesions noted Extrem Left lower extremity: normal to inspection (well perfused, good PT/DP pulses) and normal capillary refill Objective Last Vital Signs Temp 37.3 C 01/12/25 11:54 Pulse 80 01/12/25 11:54 Resp 16 01/12/25 11:54 BP 100/65 01/12/25 11:54 Pulse Ox 96 01/12/25 11:54 Laboratory Results - last 24 hr 01/11/25 01/12/25 14:10 06:38 WBC 15.48 H RBC 2.88 L Hgb 8.8 L D Hct 26.1 L MCV 91 MCH 30.6 MCHC 33.7 RDW 13.2 Plt Count 182 MPV 10.0 Immature Gran % 0.6 Neutrophils % 84.1 Lymphocytes % 6.8 Monocytes % 8.2 Eosinophils % 0.1 Basophils % 0.2 Nucleated RBC % 0.0 Absolute Neutrophils 13.02 H Absolute Lymphocytes 1.05 L Absolute Monocytes 1.27 H Absolute Eosinophils 0.02 Absolute Basophils 0.03 Sodium 142 Potassium 4.5 Chloride 107 Carbon Dioxide 26.5 Anion Gap 8.5 BUN 29 H Creatinine 1.2 H D Est GFR (CKD-EPI 2020) 43.54 Glucose 91 Calcium 9.2 Magnesium 1.7 L Creatine Kinase 897 H Troponin I 14 Time Spent with Patient Time Spent with Patient: <25 minutes Time was spent: preparing to see the patient(eg.review tests), ordering medications,tests, procedures, indepentently interpreting results and counseling the patient
--- NOTE | 2025-01-12 14:44 | CHAPLAIN ---
Dulce was up in a chair talking with her son, Everardo (an [employer] employee in [employer]) when I visited. She fell yesterday and had surgery on her broken femur. Today wasn't able to recall the surgery when talking with the hospitalist. I explained my role and offered support.
--- NOTE | 2025-01-12 14:52 | PT.INTREAT ---
PT Notes Visit Reasons: Hip Fx Date: 01/12/2025 PRECAUTIONS: WBAT LLE, Fall risk, Standard, Walker, IV Access RUE SUBJECTIVE: Pt sitting in recliner, agreed to participating with therapy this afternoon. ? PAIN: on incision site VITALS: monitored by nursing ? Therapeutic Activities 81197: Direct one-on-one instruction in dynamic activities to improve functional performance. ?? BED MOBILITY/TRANSFERS? Sit-stand: ? Min A ? Stand-sit: ??Min A ? Bed-Chair:? Min A ? Chair-bed: Provided skilled cues and instruction on performance and technique throughout. Gait Training 79698: Direct one-on-one instruction and skilled instruction in: Employing an assistive device Modified weight-bearing status Movement sequencing Turning and movement with proper form Provided verbal cues for equipment management and technique Provided instruction in gait pattern Patient education regarding pacing and breathing techniques to maximize activity tolerance? GAIT? Assistive Device: ??FWW ? Weight bearing: WBAT Assist: ? min A ? Distance:?? ?25' x2 ? Deviation: ? ? antalgic gait on left. ? ASSESSMENT:?Pt able to initiate activity with sit to stand followed by static standing activity followed by dynamic standing activity doing weight shifting, marching in place CGA/min A PLAN: Continue with balance training, global strengthening and general conditioning for improved safety, mobility and activity tolerance until pt is ready for DC. TREATMENT CODE/TIME: 92609v3 25mins (1:50- 2:15pm)
[2025-01-12 15:54] VITALS: BP 107/69; PULSE 79; RESP 18; TEMP 37.2; O2SAT 94
--- NOTE | 2025-01-12 16:16 | W.ANESPOSTOP ---
Postoperative Evaluation Date, Time and Location Date Performed: 01/12/25 Time Performed: 16:35 Patient Location: Med/Surg Vital Signs Most Recent Imported Vital Signs: Most Recent Vital Signs Temp Pulse Resp BP Pulse Ox 37.2 C 79 18 107/69 94 01/12/25 15:54 01/12/25 15:54 01/12/25 15:54 01/12/25 15:54 01/12/25 15:54 Pain Score Most Recent Pain Score: Most Recent Pain Score Pain Level [Left Upper Hip] 2 01/12/25 09:41 Pain Level 0 01/12/25 01:30 Assessment Mental Status: Awake (Alert & Oriented to Patient Baseline) Airway and Respiratory Function: Patent airway with normal (patient baseline) respiratory exam Cardiovascular Function: Hemodynamically Stable Hydration Status: Adequately Hydrated Nausea & Vomiting: No Nausea or Vomiting Pain: Pt. Denies Any Pain Peripheral Nerve Block: Patient did not receive a nerve block
[2025-01-12 19:56] VITALS: BP 127/75; PULSE 89; RESP 19; TEMP 37.1; O2SAT 96
[2025-01-12 23:53] VITALS: BP 146/75; PULSE 85; RESP 19; TEMP 37.9; O2SAT 94
[2025-01-13] MEDS: Acetaminophen 500 MG TAB 1000 MG PO ×2 (00:15→20:14)
[2025-01-13] MEDS: Naproxen 500 MG TAB 250 MG PO ×2 (00:15→20:14)
[2025-01-13 00:27] VITALS: TEMP 37.6
[2025-01-13 03:24] VITALS: BP 111/66; PULSE 80; RESP 18; TEMP 37.1; O2SAT 96
[2025-01-13] MEDS: Thyroid 60 MG TAB 90 MG PO (06:16)
[2025-01-13] MEDS: Normal Saline Flush 10 ML SYR IVP ×4 (06:25→20:15)
[2025-01-13 07:13] LABS: Abs Immature Grans 0.06 10^3/uL (0.0-0.06); Absolute Basophil Count 0.03 10^3/uL (0.0-0.2); Absolute Eosinophil Count 0.08 10^3/uL (0.0-0.7); Absolute Lymphocyte Count 1.63 10^3/uL (1.2-3.4); Absolute Monocyte Count 1.03 10^3/uL (0.1-0.8); Absolute Neutrophil Count 8.13 10^3/uL (1.2-6.7); Basophils % 0.3 %; Eosinophils % 0.7 %; HCT 23.8 % (36.0-46.0); HGB 8.1 g/dL (11.2-15.7); Immature Grans % 0.5 %; Lymphocytes % 14.9 %; MCH 31.4 pg (27.0-33.0); MCV 92 fL (80-95); MPV 9.9 fL (8.0-11.0); Monocytes % 9.4 %; Neutrophils % 74.2 %; Platelet Count 172 10^3/uL (130-400); RBC 2.58 10^6/uL (3.93-5.22); RDW 13.4 % (11.7-14.6); RDW-SD 45.1 fL; WBC 10.96 10^3/uL (4.4-10.8)
[2025-01-13 07:18] VITALS: BP 127/80; PULSE 79; RESP 17; TEMP 36.8; O2SAT 96
[2025-01-13 07:33] LABS: Anion Gap 4.8 mmol/L (3-11); BUN 27 mg/dL (7-18); CO2 26.2 mmol/L (21.0-32.0); CREATININE 1.1 mg/dL (0.55-1.02); Calcium 9.1 mg/dL (8.5-10.1); Chloride 108 mmol/L (98-107); Estimated GFR 48.33 (mL/min/1.73m2); Glucose 92 mg/dL (74-106); Magnesium 1.9 mg/dL (1.8-2.4); Potassium 3.9 mmol/L (3.5-5.1); Sodium 139 mmol/L (136-145)
[2025-01-13] MEDS: Aspirin E.C. 81 MG TABEC PO (09:26)
[2025-01-13] MEDS: Propranolol 10 MG TAB PO ×2 (09:26→20:15)
--- NOTE | 2025-01-13 09:37 | PTTR_ITS ---
PT Notes Visit Reasons: Hip Fx Inpatient Physical Therapy Treatment Note [facility] Date: January 13, 2025 PRECAUTIONS: WBAT LLE, Fall risk, Standard, Walker, IV Access RUE SUBJECTIVE: Pt sitting bedside, just finished breakfast, agreed to participating with therapy this morning. ? PAIN: 0/10 in sitting, 5/10 with ambulation with front wheel walker. VITALS: monitored by nursing ? Therapeutic Activities 27738: Direct one-on-one instruction in dynamic activities to improve functional performance. ?? Morning session: Performed long arc quads 2 x 5, resisted isometric hip adduction x 10, resisted isometric hip abduction x 10, seated marching x 10, seated heel raise x 10. In standing perform weight shifts x 10 to left with use of front wheel walker. Afternoon session: Longer quads x 10 2 sets, resisted isometric hip adduction in sitting x 10, resisted isometric hip abduction in sitting x 10, seated marching x 10 seated heel raise and dorsiflexion x 20. Standing weight shifts at walker x 10 left. BED MOBILITY/TRANSFERS? Sit-stand: ? Min A ? ?to front wheel walker ? Stand-sit: ??Min A from front wheel walker? Bed-Chair:? Patient sitting bedside at start of treatment today.? Provided skilled cues and instruction on performance and technique throughout. Gait Training 73252: Direct one-on-one instruction and skilled instruction in: Employing an assistive device Modified weight-bearing status Movement sequencing Turning and movement with proper form Provided verbal cues for equipment management and technique Provided instruction in gait pattern Patient education regarding pacing and breathing techniques to maximize activity tolerance? GAIT? Assistive Device: ??FWW ? Weight bearing: WBAT Assist: ? min A ? Morning session: Distance:?? ?35' x2 ? Afternoon session: Distance 40' X2 verbal cues offered for changing directions. Deviation: ? ? antalgic gait on left. Step to gait pattern.? ASSESSMENT:?Pt able to initiate activity with sit to stand followed by static standing activity followed by dynamic standing activity doing weight shifting, marching in place CGA/min A PLAN: Continue with balance training, global strengthening and general conditioning for improved safety, mobility and activity tolerance until pt is ready for DC. TREATMENT CODE/TIME: TREATMENT CODE/TIME: Session 1 -- x25 minutes for 2 units : [id number], 55230D8 25 mins (9:10-9:35 am) Session 2-- x25 minutes total of 2 units : 88279T4 and 37862 X1 (2:45-3:10) DISCHARGE RECOMMENDATION: Home health physical therapy versus [facility].
[2025-01-13 11:17] VITALS: BP 102/62; PULSE 71; RESP 16; TEMP 36.5; O2SAT 94
[2025-01-13] MEDS: Enoxaparin 30 MG/0.3 ML SYR SC (13:25)
--- NOTE | 2025-01-13 13:38 | W.PM.PROGNOT ---
Date of Service Date of service: 01/13/25 Time of Service: 13:40 Assessment and Plan Assessment and plan (1) Intertrochanteric fracture of left femur: Status: Acute Assessment and plan: - now POD #3 L hip IMN - seems comfortable with current pain regimen - PT/OT as able - lovenox ordered for DVT ppx, can change control coordinator to [facility] on discharge - eventual plan for d/c to SNF once arranged (2) MARCELO (acute kidney injury): Status: Acute Assessment and plan: - suspect this is a combination of dehydration and less likely mild rhabdo. much improved today with Cr 2.3 ----> 1.1, this is close to her baseline - will d/c IVF as patient is eating and drinking - monitor BP, I/O (3) Rhabdomyolysis: Status: Acute Assessment and plan: - hydrate as noted above - CPK elevated today to 897 but patient had ortho surgery yesterday (4) Hypertension: Assessment and plan: - will continue propanolol per outpatient dosing - hold losartan. while MARCELO has resolved, BP was 102/62 today. consider restart in AM (5) Hyperlipidemia: Assessment and plan: - on red yeast rice (6) Hypothyroidism: Assessment and plan: - on armor thyroid Subjective Subjective Interval history since last seen: Seen and examined. Sitting in chair. Pleasant, a little confused. Offers no complaint. Denies any pain in her hip. Other vitals stable. Exam Const General: cooperative, comfortable, no acute distress and frail appearing Orientation: alert and awake [facility] Head: normocephalic and atraumatic Chest Chest: normal inspection of the chest Resp Effort & Inspection: normal respiratory effort Auscultation: clear to auscultation bilaterally, no rales, no rhonchi and no wheezes Cardio Rate: regular rate Rhythm: regular rhythm Heart Sounds: S1 normal and S2 normal GI Inspection: normal to inspection Palpation: soft and no hepatosplenomegaly Auscultation: normal bowel sounds Skin General skin exam: no rashes or lesions noted Extrem Left lower extremity: normal to inspection (well perfused, good PT/DP pulses) and normal capillary refill Objective Last Vital Signs Temp 36.5 C 01/13/25 11:17 Pulse 71 01/13/25 11:17 Resp 16 01/13/25 11:17 BP 102/62 03/01/25 11:17 Pulse Ox 94 01/13/25 11:17 Laboratory Results - last 24 hr 01/13/25 06:33 WBC 10.96 H RBC 2.58 L Hgb 8.1 L Hct 23.8 L MCV 92 MCH 31.4 MCHC 34.0 RDW 13.4 Plt Count 172 MPV 9.9 Immature Gran % 0.5 Neutrophils % 74.2 Lymphocytes % 14.9 Monocytes % 9.4 Eosinophils % 0.7 Basophils % 0.3 Nucleated RBC % 0.0 Absolute Neutrophils 8.13 H Absolute Lymphocytes 1.63 Absolute Monocytes 1.03 H Absolute Eosinophils 0.08 Absolute Basophils 0.03 Sodium 139 Potassium 3.9 Chloride 108 H Carbon Dioxide 26.2 Anion Gap 4.8 BUN 27 H Creatinine 1.1 H Est GFR (CKD-EPI 2020) 48.33 Glucose 92 Calcium 9.1 Magnesium 1.9 Time Spent with Patient Time Spent with Patient: 25-34 minutes Time was spent: preparing to see the patient(eg.review tests), indepentently interpreting results, counseling the patient and care coordination
[2025-01-13 14:17] VITALS: BP 100/66; PULSE 81; RESP 16; TEMP 37.8; O2SAT 95
[2025-01-13] MEDS: Docusate Sodium 100 MG CAP PO (15:40)
[2025-01-13] MEDS: Polyethylene Glycol 3350 17 GM PACKET PO (15:40)
--- NOTE | 2025-01-13 18:57 | NUR.NOTE ---
Nursing Note: Pt's son Justin was in to see her today. Asked him for a home med list, he does not have one and suggested calling PCP office
[2025-01-13 20:12] VITALS: BP 136/70; PULSE 66; RESP 18; TEMP 36.5; O2SAT 95
[2025-01-13] MEDS: Milk of Magnesia 30 ML CUP PO (20:15)
[2025-01-14 02:55] VITALS: BP 134/58; PULSE 68; RESP 18; TEMP 36.4; O2SAT 96
[2025-01-14] MEDS: traMADol 50 MG TAB PO (03:54)
[2025-01-14] MEDS: Acetaminophen 500 MG TAB 1000 MG PO ×2 (03:54→11:10)
[2025-01-14] MEDS: Thyroid 60 MG TAB 90 MG PO (06:32)
[2025-01-14 07:30] VITALS: BP 102/57; PULSE 69; RESP 16; TEMP 36.8; O2SAT 94
[2025-01-14] MEDS: Propranolol 10 MG TAB PO ×2 (09:02→21:04)
[2025-01-14] MEDS: Normal Saline Flush 10 ML SYR IVP ×2 (09:02→21:05)
[2025-01-14] MEDS: Aspirin E.C. 81 MG TABEC PO (09:02)
[2025-01-14 11:01] VITALS: BP 100/68; PULSE 113; RESP 18; TEMP 36.6; O2SAT 94
[2025-01-14] MEDS: Naproxen 500 MG TAB 250 MG PO ×2 (11:10→21:04)
--- NOTE | 2025-01-14 12:03 | PTTR_ITS ---
PT Notes Visit Reasons: Hip Fx Inpatient Physical Therapy Treatment Note [facility] Date: January 14, 2025 PRECAUTIONS: WBAT LLE, Fall risk, Standard, Walker, IV Access RUE SUBJECTIVE: Patient lying in bed on semiright side-lying position with pillow wedged between legs. Nursing indicated patient had just received Tylenol and NSAID. ? PAIN:1/10 in sitting,4/10 with ambulation with front wheel walker. VITALS: monitored by nursing ? Therapeutic Activities 96759: Direct one-on-one instruction in dynamic activities to improve functional performance. ?? Morning session: Performed quad sets x 10 bilateral, ankle pumps x 10 bilateral, heel slide x 10 left. Long arc quads 1X10 bilateral, resisted isometric hip adduction x 10, resisted isometric hip abduction x 10, seated marching x 10, seated heel raise x 10. In standing perform weight shifts x 10 to left with use of front wheel walker. Afternoon session: BED MOBILITY/TRANSFERS? Sit-stand: ? Min A ? ?to front wheel walker ? Stand-sit: ??Min A from front wheel walker? Bed-Chair:? Patient sitting bedside at start of treatment today.? Supine?sit: Head of bed 45 degrees with mod assist x 1 for positioning of left lower extremity. Provided skilled cues and instruction on performance and technique throughout. Gait Training 09552: Direct one-on-one instruction and skilled instruction in: Employing an assistive device Modified weight-bearing status Movement sequencing Turning and movement with proper form Provided verbal cues for equipment management and technique Provided instruction in gait pattern Patient education regarding pacing and breathing techniques to maximize activity tolerance? GAIT? Assistive Device: ??FWW ? Weight bearing: WBAT Assist: ? min A ? Morning session: Distance:?? ?50'x2, 20'x2 with 1 standing rest break 2 minutes. Ended ambulation in bedside chair for lunch. Chair alarm activated. ? Deviation: ? ? antalgic gait on left. Step to gait pattern.? ASSESSMENT:?Pt able to initiate activity with sit to stand followed by static standing activity followed by dynamic standing activity doing weight shifting, marching in place CGA/min A. Improved ambulation/gait as now advancing right lower extremity past left stance leg. PLAN: Continue with balance training, global strengthening and general conditioning for improved safety, mobility and activity tolerance until pt is ready for DC. TREATMENT CODE/TIME: TREATMENT CODE/TIME: Session 1 -- x25 minutes for 2 units : [id number], 37909V2 25 mins (11:35-12:00) DISCHARGE RECOMMENDATION: long-term facility upon discharge when medically cleared. Disclaimer: This note was created using [employer] voice recognition software. It was reviewed for major content. However, there may be multiple small discrepancies and errors due to the voice recognition aspects of the software.
[2025-01-14] MEDS: Enoxaparin 30 MG/0.3 ML SYR SC (13:27)
[2025-01-14 14:51] VITALS: BP 117/66; PULSE 70; RESP 16; TEMP 36.8; O2SAT 96
--- NOTE | 2025-01-14 17:11 | PGE_ITS ---
Date of Service Date of service: 01/14/25 Time of Service: 17:11 Assessment and Plan Assessment and plan (1) Intertrochanteric fracture of left femur: Status: Acute Assessment and plan: - now POD #4 s/p L hip IMN - seems comfortable with current pain regimen - PT/OT - lovenox ordered for DVT ppx, can private branch exchange operator to [facility] on discharge - plan for d/c to SNF when available (2) MARCELO (acute kidney injury): Status: Acute Assessment and plan: - suspect this is a combination of dehydration and less likely mild rhabdo. much improved with Cr 2.3 ----> 1.1, this is close to her baseline - off IVF as patient is eating and drinking - Continue to monitor BP, I/O (3) Rhabdomyolysis: Status: Acute Assessment and plan: - hydrated as noted above - CPK elevated post op to 897, repeat tomorrow with BMP to make sure going back down. (4) Hypertension: Assessment and plan: - will continue propanolol per outpatient dosing - holding losartan and BP still low normal, continue holding for now. (5) Hypothyroidism: Assessment and plan: - on armor thyroid, TSH a little high but Ft4 normal, no change. Subjective Subjective Patient reports: no new complaints, tolerating a regular diet and voiding w/o difficulty; denies vomiting, shortness of breath or fever Interval history since last seen: Hip pain not bad. Got APAP before PT and it helped. Eating some. Exam Narrative Exam Narrative: Constitutional: Alert and appropriate, poor memory, but very pleasant. Chest: RRR, Normal S1, S2, distal pulses intact. Resp: Lungs clear to auscultation bilaterally, no wheezes, rales, or rhonchi. ABD: soft, NT/ND EXT: no cyanosis, clubbing, or edema Objective Last Vital Signs Temp 36.8 C 01/14/25 14:51 Pulse 70 01/14/25 14:51 Resp 16 01/14/25 14:51 BP 117/66 01/14/25 14:51 Pulse Ox 96 01/14/25 14:51 Time Spent with Patient Time Spent with Patient: 35-49 minutes Time was spent: preparing to see the patient(eg.review tests), obtaining and/or reviewing separately otained hiistory, ordering medications,tests, procedures, referring, communicating with other health post acute care nurse, indepentently interpreting results, counseling the patient and care coordination
[2025-01-14 19:44] VITALS: BP 116/71; PULSE 78; RESP 16; TEMP 37; O2SAT 96
[2025-01-14] MEDS: Docusate Sodium 100 MG CAP PO (21:04)
[2025-01-14 22:46] VITALS: BP 134/68; PULSE 75; RESP 16; TEMP 36.8; O2SAT 95
[2025-01-15] MEDS: traMADol 50 MG TAB PO (00:45)
[2025-01-15 03:32] VITALS: BP 129/74; PULSE 73; RESP 16; TEMP 36.8; O2SAT 95
[2025-01-15] MEDS: Thyroid 60 MG TAB 90 MG PO (06:00)
[2025-01-15 06:38] VITALS: BP 140/80; PULSE 76; RESP 16; TEMP 37.3; O2SAT 96
[2025-01-15 07:04] LABS: Anion Gap 3.7 mmol/L (3-11); BUN 23 mg/dL (7-18); CO2 31.3 mmol/L (21.0-32.0); CREATININE 0.8 mg/dL (0.55-1.02); Calcium 9.3 mg/dL (8.5-10.1); Chloride 108 mmol/L (98-107); Creatine Kinase 310 U/L (26-192); Estimated GFR 70.83 (mL/min/1.73m2); Glucose 99 mg/dL (74-106); Potassium 4.7 mmol/L (3.5-5.1); Sodium 143 mmol/L (136-145)
[2025-01-15] MEDS: Aspirin E.C. 81 MG TABEC PO (08:55)
[2025-01-15] MEDS: Propranolol 10 MG TAB PO (08:55)
[2025-01-15] MEDS: Lactobacillus Acidophilus CAP 1 CAP PO (08:55)
[2025-01-15] MEDS: Normal Saline Flush 10 ML SYR IVP (08:56)
--- NOTE | 2025-01-15 11:22 | CMDISCH_ITS ---
Date of service: 01/15/25 Time of Service: 11:22 LACE Index Scoring Tool Questions: Length of Stay (in days): 4 - 6 Was the patient admitted via the E.D.?: Yes E.D. Visits: 1 Answers: Total Score: 8 Risk of Readmission: Low Risk Care Management Discharge Plan Reason for Hospitalization: left hip fracture Discharge Plan: Dulce will be transferred to [facility] today. She will f/u with the facility provider and continue per her plan of care. Dulce will transfer via [facility] private vehicle as coordinated by CM. CM notified Dulce's son, Everardo and he is pleased with this plan. Patient/Family Education Needs: Review of discharge instructions, activity, limitations, and discuss ask me 3. SDOH Health Related Social Needs: No Data to Display
[2025-01-15 11:38] VITALS: BP 140/72; PULSE 72; RESP 18; TEMP 37; O2SAT 97
--- NOTE | 2025-01-15 11:45 | DSE_ITS ---
Date of service: 01/15/25 Time of Service: 11:45 DS: Diagnosis Discharge Diagnosis (1) Intertrochanteric fracture of left femur: Status: Acute (2) MARCELO (acute kidney injury): Status: Acute (3) Rhabdomyolysis: Status: Acute (4) Hypertension: (5) Hypothyroidism: Discharge Plan Disposition Patient Disposition: [facility] Facility(SNF) Condition: Good Discharge Details Reason For Visit: Hip Fx Admit Date/Time: 01/11/25 15:02 Admit Provider: Arnel Hinkle Attending Provider: Arnel Hinkle [facility] Course Hospital Course: 89 yo M with dementia who was found down by her son with a left intertrochanteric hip fracture. Labs in emergency room also revealed creatinine of 2.3 and a CPK of 432. She underwent surgical fixation left intramedullary nail with Dr. Hubbard on 01/11/25 with no complications. She worked with physical therapy and SNF for additional physical therapy was recommended. BID 81mg aspirin was recommended for DVT prophylaxis for 30 days at time of discharge. Tramadol was prescribed with acetaminophen and low dose naproxen for pain control. She did have anemia postoperatively with hemoglobin in the 8s. She was not symptomatic, but this should be followed. She did not have ongoing bleeding or severe bleeding evident. Iron supplementation was recommended every other day. Her creatinine improved to 0.8 on the morning of discharge. Her MARCELO was felt pre-renal related to dehydration with minimal contribution from mild rhabdomyolysis. Her CPK increased after surgery but was 310 on the morning of discharge. She was eating and drinking well with normal urine output. Her TSH and free thyroxine were both high. Levothyroxine therapy would be preferred to porcine thyroid as it would result in more predictable levels. No change was made. Her dementia was stable. Home Meds and New Rx's Prescriptions: New polyethylene glycol 3350 17 gram Powder In Packet 17 g PO DAILY PRN PRN (Reason: Constipation) Qty: 30 0RF acetaminophen 500 mg Tablet 1,000 mg PO Q6H PRN PRNQty: 90 0RF magnesium hydroxide [Milk of Magnesia] 400 mg/5 mL Suspension 30 ml PO DAILY PRN PRNQty: 30 0RF docusate sodium [Colace] 100 mg Capsule 100 mg PO TID PRN PRNQty: 60 0RF naproxen 500 mg Tablet 250 mg PO BID PRN PRN (Reason: Mild Pain) Qty: 30 0RF tramadol 50 mg Tablet 50 mg PO Q12H PRN PRN (Reason: Pain) Qty: 30 0RF ferrous sulfate 325 mg (65 mg iron) tablet 325 mg PO Q OTHER DAY Qty: 30 0RF Continued vitamin K2 1 tab PO Patient Comments: No dose information listed on med list thyroid (pork) [[place] Thyroid] 30 mg tablet 30 mg PO DAILY thyroid (pork) [[place] Thyroid] 60 mg tablet 60 mg PO DAILY vitamin B complex 1 EACH capsule 1 cap PO DAILY coenzyme Q10 [CoQ-10] 100 MG capsule 1 cap PO DAILY red yeast rice 600 MG capsule 1 cap PO HS thyroid (pork) [[place] Thyroid] 60 MG tablet 30 mg PO DAILY Tumeric 1 cap PO DAILY propranolol 10 mg tablet 10 mg PO BID Patient Comments: TK 1 T PO BID losartan 25 mg tablet 12.5 mg PO DAILY Patient Comments: TAKE 1/2 TABLET BY MOUTH DAILY calcium-magnesium 1 tab PO DAILY Changed aspirin 81 mg tablet,delayed release (DR/EC) 81 mg PO BID 30 Days Qty: 0 0RF Discharge Instructions Instructions: Femur Fracture (DC) Referrals: Jayce Galo MD [ [facility] ST[facility]FF PHYSICIAN] - 03/02/25 10:45 am Activity:: Activity as Tolerated Equipment/Supplies:: Walker Diet:: As Tolerated Discharge Orders Discharge Orders: Discharge Order (Routine); Ordered 01/15/25 Ordered By: Afshin Lakhani DS: Summary Time Spent with Patient providing and/or coordinating discharge services: Greater than 30 minutes Status at Discharge Functional status at discharge: uses cane/walker Overall status at discharge: patient is progressing back to baseline Mental Status: other (chronic dementia) Speech and Movement: speech and movement normal Mood: congruent mood and other (chronic dementia) Affect: normal affect Quality:SDOH Health Related Social Needs: No Data to Display Exam Narrative Exam Narrative: Constitutional: Alert and appropriate, poor memory and thinks she lives in [facility], but very pleasant. Chest: RRR, Normal S1, S2, distal pulses intact. Resp: Lungs clear to auscultation bilaterally, no wheezes, rales, or rhonchi. ABD: soft, NT/ND EXT: no cyanosis, clubbing, or edema. moves feet normally Psych Mental Status: other (chronic dementia) Speech and Movement: speech and movement normal Mood: congruent mood and other (chronic dementia) Affect: normal affect DS: Data Vitals/I&O Vitals and I&O: Vital Signs Temperature 37.0 C 01/15/25 11:38 Temperature Source Tympanic 01/15/25 11:38 Pulse 72 01/15/25 11:38 Pulse Rhythm Regular 01/11/25 19:25 Pulse 71 01/11/25 18:55 Respiratory Rate 18 01/15/25 11:38 Respiratory Effort Normal 01/11/25 19:25 Respiratory Depth Normal 01/11/25 19:25 Respiratory Pattern Normal 01/11/25 19:25 Blood Pressure 140/72 01/15/25 11:38 Blood Pressure Mean 93 01/11/25 18:55 Blood Pressure Position Supine 01/11/25 15:45 Pulse Oximetry 97 01/15/25 11:38 Respiratory End-tidal CO2 31 01/11/25 19:15 Oxygen Delivery Method Room Air 01/15/25 11:38 Oxygen Flow Rate 0 01/15/25 11:38 Pain Level 0 01/15/25 11:38 Comment Left hip 01/14/25 11:11 Intake & Output 01/14/25 01/14/25 01/15/25 11:59 23:59 11:59 Intake Total 790 / 790 Output Total 500 / 500 1000 / 1000 Balance 290 / 290 -1000 / -1000 Intake: IV 10 Oral 780 / 780 Output: Urine 500 / 500 1000 / 1000 Other: Urine Color Yellow Yellow Yellow Urine Appearance Clear Cloudy Clear Urine Odor None Normal Normal Comment pt voided missed the hat, unable to measure Stool Size Moderate Moderate Stool Characteristics Soft Formed Data Completed and Pending Labs on day of discharge: Labs from last 24 hours 01/15/25 06:05 Sodium 143 Potassium 4.7 Chloride 108 H Carbon Dioxide 31.3 Anion Gap 3.7 BUN 23 H Creatinine 0.8 Est GFR (CKD-EPI 2020) 70.83 Glucose 99 Calcium 9.3 Creatine Kinase 310 H PFSH All Active Problems (Updated 01/11/25 @ 17:48 by Wicho Barreto DO) MARCELO (acute kidney injury) (Acute) Rhabdomyolysis (Acute) Intertrochanteric fracture of left femur (Acute) s/p Left hip IMN 01/11/25 Allergic rhinitis (Acute) Lower urinary tract symptoms (LUTS) (Acute) Porter hematuria (Acute) Mass of torso (Acute) Medical History Fibrocystic breast disease Hypercalcemia Elevated alkaline phosphatase level Osteoporosis Hypothyroidism Anxiety 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 Skin lesion of face Swelling, mass, or lump in chest Hypertension Hyperlipidemia Lip lesion Social History Smoking/Tobacco Use Status: Former Tobacco Use Smoking risk assessment performed?: Yes Alcohol Intake: never Drug use: Never Substance use type: does not use Housing: house Do you feel safe at home: Yes Do you feel safe in your relationship?: Yes Time Spent with Patient Time Spent with Patient: 45-69 minutes Time was spent: preparing to see the patient(eg.review tests), obtaining and/or reviewing separately otained hiistory, ordering medications,tests, procedures, referring, communicating with other health after school caregiver, indepentently interpreting results, counseling the patient and care coordination
[2025-01-15] MEDS: Enoxaparin 30 MG/0.3 ML SYR SC (12:46)
--- NOTE | 2025-01-15 14:20 | PTTR_ITS ---
PT Notes Visit Reasons: Hip Fx Inpatient Physical Therapy Treatment Note [facility] Date: 01/15/2025 PRECAUTIONS: WBAT LLE, Fall risk, Standard, , IV Access RUE SUBJECTIVE: Patient presented seated in chair She reports the exercises she did yesterday helped her. ? PAIN:1/10 in sitting,2/10 with ambulation VITALS: monitored by nursing ? Therapeutic Activities 92950: Direct one-on-one instruction in dynamic activities to improve functional performance. ?? Morning session: Performed quad sets x 10 bilateral, ankle pumps x 10 bilateral, heel slide x 10 left. Long arc quads 1X10 bilateral, resisted isometric hip adduction x 10, resisted isometric hip abduction x 10, seated marching x 10, seated heel raise x 10. In standing perform weight shifts x 10 to left with use of front wheel walker. Afternoon session: BED MOBILITY/TRANSFERS? Sit-stand: ? CGA? ?to front wheel walker ? Stand-sit: ??CGA from front wheel walker? chair to bed:? CGA cues for hand placement and safe approach to chair with FWW? sit to supine: min A for LLE supine to sit CGA Provided skilled cues and instruction on performance and technique throughout. Provided verbal cues for equipment management and technique Provided instruction in gait pattern Patient education regarding pacing and breathing techniques to maximize activity tolerance? GAIT? Assistive Device: ??FWW ? Weight bearing: WBAT Assist: ? CGA ? Morning session: Distance:?? 20ft x 2 then ?100ft x 2 with 1 seated rest for 2 mins. Deviation: ? Pt with reciprocal pattern noted internal rotation of LLE with fatigue. ? ASSESSMENT:?Pt with significant improvement in stability with transistions from sit to stand. Pt with upright posture for ambulatioin with FWW. Pt requires min VC for safe approach to surface to keep FWW with her. Improved ambulation/gait as now advancing right lower extremity past left stance leg. Ended ambulation in bedside chair . Chair alarm activated. ? PLAN: Continue with balance training, global strengthening and general conditioning for improved safety, mobility and activity tolerance until pt is ready for DC. TREATMENT CODE/TIME: 85781, 80133/ [id number] DISCHARGE RECOMMENDATION: [facility] facility upon discharge when medically cleared.
== END 2025-01-15 13:39 | disposition skilled nursing facility (03) | DRG 481 ==
LOC: ER 13:56 → SUR 17:48 → MS 01-12 03:38 → SUR 01-12 03:41 → ER 01-12 03:41 → MS 01-12 03:41
PROVIDERS: Student in an Organized Health Care Education/Training Program; Admitting Provider Hospitalist; Emergency Provider Student in an Organized Health Care Education/Training Program; PCP Nurse Practitioner Family; Responsible Provider Family Medicine; Visit Provider Hospitalist
PROC: 0QS706Z Reposition Left Upper Femur with Intramedullary Internal Fixation Device, Open Approach (ICD-10-PCS; CPT 27245; principal; 2025-01-11 15:00)
DX: S72.112A Displaced fracture of greater trochanter of left femur, initial encounter for closed fracture (principal); M62.82 Rhabdomyolysis; N17.9 Acute kidney failure, unspecified; S72.092A Other fracture of head and neck of left femur, initial encounter for closed fracture; I10 Essential (primary) hypertension; E03.9 Hypothyroidism, unspecified; E78.5 Hyperlipidemia, unspecified; W19.XXXA Unspecified fall, initial encounter; M81.0 Age-related osteoporosis without current pathological fracture; F41.9 Anxiety disorder, unspecified; E86.0 Dehydration; D64.9 Anemia, unspecified; F03.90 Unspecified dementia, unspecified severity, without behavioral disturbance, psychotic disturbance, mood disturbance, and anxiety; Z87.891 Personal history of nicotine dependence
CPT/HCPCS: 27245; 00123; 36415; 71250; 73552; 73562; 80048; 80053; 82550; 87637; 93005; 96361; 96374; 97110; 97116; 97162; 97530; 99223; 99285; 70450; 70486; 72125; 72170; 73501; 74176; 81003; 81015; 83605; 83735; 84439; 84443; 84484; 85025; 85610; 85730; 93010; 99232; 99239; J0690; J1650; J2003; J2270; J2371; J2704

== ENCOUNTER 2025-01-23 13:41 | Emergency (ER) | payer MEDICARE, BC, OTHER, SELFPAY ==
[2025-01-23] VITALS (14 sets, daily range): BP systolic 108–139; BP diastolic 59–67; PULSE 68–77; RESP 16; TEMP 36.6; O2SAT 92–95
--- NOTE | 2025-01-23 13:49 | W.ED.GENAD ---
Discharge Plan Disposition Patient Disposition: Home Condition: Stable Discharge Details Clinical Impression: Epistaxis Primary Care Provider: Rosa Viera ED Provider: Tali Hernandez Home Meds and New Rx's Prescriptions: No Action thyroid (pork) [[place] Thyroid] 30 mg tablet 30 mg PO DAILY thyroid (pork) [[place] Thyroid] 60 mg tablet 60 mg PO DAILY vitamin B complex 1 EACH capsule 1 cap PO DAILY red yeast rice 600 MG capsule 1 cap PO HS thyroid (pork) [[place] Thyroid] 60 MG tablet 30 mg PO DAILY propranolol 10 mg tablet 10 mg PO BID Patient Comments: TK 1 T PO BID losartan 25 mg tablet 12.5 mg PO DAILY Patient Comments: TAKE 1/2 TABLET BY MOUTH DAILY calcium-magnesium 1 tab PO DAILY polyethylene glycol 3350 17 gram Powder In Packet 17 g PO DAILY PRN PRN (Reason: Constipation) Qty: 30 0RF acetaminophen 500 mg Tablet 1,000 mg PO Q6H PRN PRNQty: 90 0RF magnesium hydroxide [Milk of Magnesia] 400 mg/5 mL Suspension 30 ml PO DAILY PRN PRNQty: 30 0RF docusate sodium [Colace] 100 mg Capsule 100 mg PO TID PRN PRNQty: 60 0RF naproxen 500 mg Tablet 250 mg PO BID PRN PRN (Reason: Mild Pain) Qty: 30 0RF tramadol 50 mg Tablet 50 mg PO Q12H PRN PRN (Reason: Pain) Qty: 30 0RF ferrous sulfate 325 mg (65 mg iron) tablet 325 mg PO Q OTHER DAY Qty: 30 0RF aspirin 81 mg tablet,delayed release (DR/EC) 81 mg PO BID 30 Days Qty: 0 0RF Discharge Instructions Instructions: Nosebleeds ED Additional Instructions: You were seen in the emergency department today for evaluation of a nosebleed. In our department he had a full physical examination performed, and your nose was treated with Afrin, a medication that can help constrict blood vessels and slow bleeding. We held pressure and this was successful in stopping the bleeding. If your bleeding starts again, you were provided with a clamp to pinch your nose, please leave this in place for at least 15 to 20 minutes. [facility] may decide to use other medications, like the Afrin that we use today. Please follow-up with your primary care provider in the next few days to discuss this visit and any symptoms that change, worsen, or persist. Thank you for allowing us to be part of your care. HPI General Mode of arrival: EMS. Date/Time Provider Initiated Documentation: 01/23/25 13:48. Limitations to Documentation: no limitations. Information obtained by: patient and old records reviewed. HPI Narrative: HPI: This is an 89-year-old female patient with a past medical history significant for recent left femur fracture, presenting for evaluation of epistaxis. The patient began to bleed from her left nare earlier this morning, her care facility attempted measures to stop it including direct pressure, packing with plain gauze, and cauterization without success. She reports no trauma or other inciting event, takes a baby aspirin but no blood thinners. Otherwise in her normal state of health without complaint. Exam: Gen: Awake and alert, in no apparent distress HEENT: Non-icteric sclera, no conjunctival pallor. The patient has slow bleeding from the left nare, appears anterior though specific source not immediately identified, has evidence of prior cauterization attempt in the inferior aspect of the left septum. Does have scant bright red blood in the back of her throat. Neck: Supple Lungs: No apparent respiratory distress, normal respiratory effort. CV: Appears well perfused, strong distal pulses Abdomen: Non-distended MSK: Moves 4 extremities without apparent limitation in ROM Skin: Visualized skin without rashes, cyanosis. Neuro: Normal Gait, no obvious focal deficits or facial asymmetry. Speaks in full, clear sentences. Psych: Appropriate for situation. MDM: This is an 89-year-old female patient presenting for evaluation of a nosebleed. Differential includes but is not limited to anterior nosebleed, considered posterior nosebleed, less likely coagulopathy, no evidence of hypovolemia in this patient with no tachycardia or hypotension, considered anemia given the patient's recent hemoglobin of 8.1, though she is reassuringly without dizziness, lightheadedness, hemodynamic instability. ED Course: The plain gauze packing was removed and a large clot was noted, the clot was expelled and we instilled a large volume of Afrin in the left nare and clamped the nose. After 20 minutes the nose was reevaluated, and I note no evidence of active bleeding. A thorough evaluation of the anterior aspect of the nare was performed and no large vessels or other foci identified. We monitored the patient without clamp in place to assess for recurrence of bleeding. The patient remained hemostatic, feels well, and remains hemodynamically stable. I did provide her with a clean clamp to take back to her facility in case she has recurrence of bleeding. At this time, the patient has had a full medical evaluation and is safe for discharge to home. They are hemodynamically stable, ambulatory, and tolerating PO. They are understanding of the follow-up plan and return precautions. They left our facility without incident. Tali Hernandez MD Related Data Home Medications ?Medication ?Instructions ?Recorded ?Confirmed red yeast rice 600 mg capsule 1 cap PO HS 05/11/15 01/23/25 thyroid (pork) 60 mg tablet 30 mg PO DAILY 05/11/15 01/23/25 ([place] Thyroid) vitamin B complex 1 cap PO DAILY 05/11/15 01/23/25 propranolol 10 mg tablet 10 mg PO BID 05/17/20 01/23/25 losartan 25 mg tablet 12.5 mg PO DAILY 11/28/20 01/23/25 calcium-magnesium 1 tab PO DAILY 09/14/23 01/23/25 thyroid (pork) 30 mg tablet 30 mg PO DAILY 09/29/23 01/23/25 ([place] Thyroid) thyroid (pork) 60 mg tablet 60 mg PO DAILY 09/29/23 01/23/25 ([place] Thyroid) acetaminophen 500 mg tablet 1,000 mg (2 x 500 mg) PO Q6H PRN 01/15/25 01/23/25 PRN #90 tabs aspirin 81 mg tablet,delayed 81 mg PO BID 30 days #0 tabs 01/15/25 01/23/25 release docusate sodium 100 mg capsule 100 mg PO TID PRN PRN #60 caps 01/15/25 01/23/25 (Colace) ferrous sulfate 325 mg (65 mg 325 mg PO Q OTHER DAY #30 tabs 01/15/25 01/23/25 iron) tablet magnesium hydroxide 400 mg/5 mL 30 ml PO DAILY PRN PRN #30 mL 01/15/25 01/23/25 oral suspension (Milk of Magnesia) naproxen 500 mg tablet 250 mg (1/2 x 500 mg) PO BID PRN 01/15/25 01/23/25 PRN Mild Pain #30 tabs polyethylene glycol 3350 17 gram 17 g PO DAILY PRN PRN Constipation 01/15/25 01/23/25 oral powder packet #30 ea tramadol 50 mg tablet 50 mg PO Q12H PRN PRN Pain #30 tabs 01/15/25 01/23/25 Previous Rx's ?Medication ?Instructions ?Recorded acetaminophen 500 mg tablet 1,000 mg (2 x 500 mg) PO Q6H PRN 01/15/25 PRN #90 tabs aspirin 81 mg tablet,delayed 81 mg PO BID 30 days #0 tabs 01/15/25 release docusate sodium 100 mg capsule 100 mg PO TID PRN PRN #60 caps 01/15/25 (Colace) ferrous sulfate 325 mg (65 mg 325 mg PO Q OTHER DAY #30 tabs 01/15/25 iron) tablet magnesium hydroxide 400 mg/5 mL 30 ml PO DAILY PRN PRN #30 mL 01/15/25 oral suspension (Milk of Magnesia) naproxen 500 mg tablet 250 mg (1/2 x 500 mg) PO BID PRN 01/15/25 PRN Mild Pain #30 tabs polyethylene glycol 3350 17 gram 17 g PO DAILY PRN PRN Constipation 01/15/25 oral powder packet #30 ea tramadol 50 mg tablet 50 mg PO Q12H PRN PRN Pain #30 tabs 01/15/25 Allergies Allergy/AdvReac Type Severity Reaction Status Date / Time grass pollen-perennial rye, Allergy Mild Skin Rash Verified 01/11/25 10:53 standar (grass poll-perennial rye,std) tetracycline AdvReac Mild Anaphylaxis Verified 01/11/25 10:53 brazil nuts Allergy Intermediate Swelling/Ed Uncoded 01/11/25 10:03 ad goats Allergy Unknown Unknown Uncoded 01/11/25 10:03 General Stated Complaint: Epistaxis PEPITO: 3 Course Vital Signs Vital signs: Vital Signs Temperature 36.6 C 01/23/25 13:43 Pulse 77 01/23/25 13:43 Respiratory Rate 16 01/23/25 13:43 Blood Pressure 139/67 01/23/25 13:43 Pulse Oximetry 94 01/23/25 13:43 Temperature 36.6 C 01/23/25 13:43 Pulse 77 01/23/25 13:43 Respiratory Rate 16 01/23/25 13:43 Blood Pressure 139/67 01/23/25 13:43 Pulse Oximetry 94 01/23/25 13:43 Oxygen Delivery Method Room Air 01/23/25 13:43 Oxygen Flow Rate 0 01/23/25 13:43 Medical Decision Making Quality:SDOH Health Related Social Needs: No Data to Display PFSH All Active Problems (Updated 01/23/25 @ 14:47 by Tali Hernandez MD) Epistaxis (Acute) Intertrochanteric fracture of left femur (Acute) s/p Left hip IMN 01/11/25 Allergic rhinitis (Acute) Lower urinary tract symptoms (LUTS) (Acute) Porter hematuria (Acute) Mass of torso (Acute) Medical History Fibrocystic breast disease Hypercalcemia Elevated alkaline phosphatase level Osteoporosis Hypothyroidism Anxiety 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 Skin lesion of face Swelling, mass, or lump in chest Hypertension Hyperlipidemia Lip lesion Social History Smoking/Tobacco Use Status: Former Tobacco Use Smoking risk assessment performed?: Yes Alcohol Intake: never Drug use: Never Substance use type: does not use Housing: house Do you feel safe at home: Yes Do you feel safe in your relationship?: Yes
[2025-01-23] MEDS: Oxymetazolone 0.05% SPRAY 15 ML BTL NS (14:00)
== END 2025-01-23 15:43 | disposition home or self-care (01) ==
PROVIDERS: Emergency Provider Emergency Medicine; PCP Nurse Practitioner Family
DX: R04.0 Epistaxis (principal); I10 Essential (primary) hypertension; E78.5 Hyperlipidemia, unspecified; E03.9 Hypothyroidism, unspecified; Z79.82 Long term (current) use of aspirin; Z87.891 Personal history of nicotine dependence
CPT/HCPCS: 99283

== ENCOUNTER 2025-02-04 03:59 | Emergency (ER) | payer MEDICARE, BC, SELFPAY ==
[2025-02-04 04:00] VITALS: BP 182/83; PULSE 81; RESP 16; TEMP 36.4; O2SAT 93
--- NOTE | 2025-02-04 04:04 | W.ED.GENAD ---
Discharge Plan Disposition Patient Disposition[facility]) Discharge Details Clinical Impression: Epistaxis Primary Care Provider: Rosa Viera ED Provider: Ruslan Salguero Meds and New Rx's Prescriptions: Continued vitamin B complex 1 EACH capsule 1 cap PO DAILY thyroid (pork) [Cuney Thyroid] 60 MG tablet 60 mg PO DAILY propranolol 10 mg tablet 10 mg PO BID Patient Comments: TK 1 T PO BID losartan 25 mg tablet 12.5 mg PO DAILY Patient Comments: TAKE 1/2 TABLET BY MOUTH DAILY polyethylene glycol 3350 17 gram Powder In Packet 17 g PO DAILY PRN PRN (Reason: Constipation) Qty: 30 0RF magnesium hydroxide [Milk of Magnesia] 400 mg/5 mL Suspension 30 ml PO DAILY PRN PRNQty: 30 0RF docusate sodium [Colace] 100 mg Capsule 100 mg PO TID PRN PRNQty: 60 0RF naproxen 500 mg Tablet 250 mg PO BID PRN PRN (Reason: Mild Pain) Qty: 30 0RF tramadol 50 mg Tablet 50 mg PO Q12H PRN PRN (Reason: Pain) Qty: 30 0RF ferrous sulfate 325 mg (65 mg iron) tablet 325 mg PO Q OTHER DAY Qty: 30 0RF aspirin 81 mg tablet,delayed release (DR/EC) 81 mg PO BID 30 Days Qty: 0 0RF acetaminophen 325 mg tablet 650 mg PO Q6H PRN bisacodyl [Dulcolax (bisacodyl)] 10 mg suppository 10 mg MN DAILY PRN Discharge Instructions Instructions: Nosebleeds ED Additional Instructions: You were seen for a nosebleed in the ED. We were able to cauterize an area in the left nostril where you are bleeding from. This hopefully will take care of any further episodes of bleeding. You should be using saline nasal spray to keep the mucous membranes moist. You may follow-up with ENT or primary care if continued episodes of bleeding. Return to ED for any severe/uncontrolled bleeding. Referrals: Rosa Viear [Primary Care Provider] - [facility] General Mode of arrival: EMS. Date/Time Provider Initiated Documentation: 02/04/25 04:04. Limitations to Documentation: no limitations. Information obtained by: patient and RN notes reviewed. HPI Narrative: Patient presents to ED from [facility] with complaint of uncontrolled nosebleed. Patient is on baby aspirin a day no other antiplatelets or anticoagulants. She has not been ill and there is been no trauma. She has had a nosebleed for about the last 3 hours which staff had not been able to bring under control. She is sent to ED for evaluation. She was seen here earlier this month with nosebleed from the left side which resolved after placing packing with Afrin with no further intervention. Related Data Home Medications ?Medication ?Instructions ?Recorded ?Confirmed thyroid (pork) 60 mg tablet 60 mg PO DAILY 05/11/15 02/04/25 (Cuney Thyroid) vitamin B complex 1 cap PO DAILY 05/11/15 02/04/25 propranolol 10 mg tablet 10 mg PO BID 05/17/20 02/04/25 losartan 25 mg tablet 12.5 mg PO DAILY 11/28/20 02/04/25 aspirin 81 mg tablet,delayed 81 mg PO BID 30 days #0 tabs 01/15/25 02/04/25 release docusate sodium 100 mg capsule 100 mg PO TID PRN PRN #60 caps 01/15/25 02/04/25 (Colace) ferrous sulfate 325 mg (65 mg 325 mg PO Q OTHER DAY #30 tabs 01/15/25 02/04/25 iron) tablet magnesium hydroxide 400 mg/5 mL 30 ml PO DAILY PRN PRN #30 mL 01/15/25 02/04/25 oral suspension (Milk of Magnesia) naproxen 500 mg tablet 250 mg (1/2 x 500 mg) PO BID PRN 01/15/25 02/04/25 PRN Mild Pain #30 tabs polyethylene glycol 3350 17 gram 17 g PO DAILY PRN PRN Constipation 01/15/25 02/04/25 oral powder packet #30 ea tramadol 50 mg tablet 50 mg PO Q12H PRN PRN Pain #30 tabs 01/15/25 02/04/25 acetaminophen 325 mg tablet 650 mg PO Q6H PRN 02/04/25 02/04/25 bisacodyl 10 mg rectal suppository 10 mg MN DAILY PRN 02/04/25 02/04/25 (Dulcolax (bisacodyl)) Previous Rx's ?Medication ?Instructions ?Recorded aspirin 81 mg tablet,delayed 81 mg PO BID 30 days #0 tabs 01/15/25 release docusate sodium 100 mg capsule 100 mg PO TID PRN PRN #60 caps 01/15/25 (Colace) ferrous sulfate 325 mg (65 mg 325 mg PO Q OTHER DAY #30 tabs 01/15/25 iron) tablet magnesium hydroxide 400 mg/5 mL 30 ml PO DAILY PRN PRN #30 mL 01/15/25 oral suspension (Milk of Magnesia) naproxen 500 mg tablet 250 mg (1/2 x 500 mg) PO BID PRN 01/15/25 PRN Mild Pain #30 tabs polyethylene glycol 3350 17 gram 17 g PO DAILY PRN PRN Constipation 01/15/25 oral powder packet #30 ea tramadol 50 mg tablet 50 mg PO Q12H PRN PRN Pain #30 tabs 01/15/25 Allergies Allergy/AdvReac Type Severity Reaction Status Date / Time grass pollen-perennial rye, Allergy Mild Skin Rash Verified 02/04/25 04:13 standar (grass poll-perennial rye,std) tetracycline AdvReac Mild Anaphylaxis Verified 02/04/25 04:13 brazil nuts Allergy Intermediate Swelling/Ed Uncoded 02/04/25 04:13 ad goats Allergy Unknown Unknown Uncoded 02/04/25 04:13 General PEPITO: 3 Exam Narrative Exam Narrative: Const: WDWN elderly female in NAD. VS per triage. HEENT: NC/AT. Normal facial exam. No active bleeding on initial inspection after nasal clamp removed. Neck: Supple. Trachea midline. Lungs: Normal respiratory effort. Neuro: A+O x 3. Normal speech, mentation. Cranial nerves II - XII grossly intact. No gross motor or sensory deficit. Procedure Epistaxis Control Date of Procedure: 02/04/25 Time of Procedure: 05:08 Provider that performed the procedure: Ruslan Salguero Patient Consented: Verbally Nostril: left Nose prepped with: lidocaine and oxymetazoline Direct Inspection: yes Cautery Used: silver nitrate Medical Decision Making Patient presenting to ED with epistaxis that appears to be from the left nostril. No active bleeding on initial evaluation. Afrin spray given in both nostrils. Reevaluation found bleeding in the left anterior septum. Viscous lidocaine applied. Pressure held to control bleeding. Silver nitrate cautery performed with good result; no further bleeding and no complications. Patient observed for 30 minutes with no recurrent bleeding. She will be discharged back to [facility]. Recommend saline nasal spray. Follow-up with ENT as needed. Return precautions provided. PFSH All Active Problems (Updated 02/04/25 @ 05:12 by Ruslan Salguero MD) Skin lesion of face (Acute) Swelling, mass, or lump in chest (Acute) Lip lesion (Acute) 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 (Acute) Epistaxis (Acute) Allergic rhinitis (Acute) Lower urinary tract symptoms (LUTS) (Acute) Mass of torso (Acute) Medical History Fibrocystic breast disease Hypercalcemia Elevated alkaline phosphatase level Osteoporosis Hypothyroidism Anxiety Hypertension Hyperlipidemia Surgical History Intertrochanteric fracture of left femur s/p Left hip IMN 01/11/25 Social History Smoking/Tobacco Use Status: Former Tobacco Use Smoking risk assessment performed?: Yes Alcohol Intake: never Drug use: Never Substance use type: does not use Housing: house Do you feel safe at home: Yes Do you feel safe in your relationship?: Yes
[2025-02-04] MEDS: Oxymetazolone 0.05% SPRAY 15 ML BTL NS (04:11)
[2025-02-04] MEDS: Lidocaine 2% Viscous 15 ML CUP (04:33)
[2025-02-04] MEDS: Silver Nitrate Stick 1 EACH TP (04:33)
== END 2025-02-04 07:28 | disposition skilled nursing facility (03) ==
PROVIDERS: Emergency Provider Emergency Medicine; PCP Nurse Practitioner Family
DX: R04.0 Epistaxis (principal); I10 Essential (primary) hypertension
CPT/HCPCS: 30903

== ENCOUNTER 2025-03-06 16:04 | Outpatient (REF) | payer MEDICARE, OTHER, SELFPAY ==
[2025-03-06 15:19] LABS: Abs Immature Grans 0.02 10^3/uL (0.0-0.06); Absolute Basophil Count 0.04 10^3/uL (0.0-0.2); Absolute Eosinophil Count 0.18 10^3/uL (0.0-0.7); Absolute Lymphocyte Count 0.99 10^3/uL (1.2-3.4); Absolute Monocyte Count 0.57 10^3/uL (0.1-0.8); Absolute Neutrophil Count 4.57 10^3/uL (1.2-6.7); Basophils % 0.6 %; Eosinophils % 2.8 %; HCT 32.5 % (36.0-46.0); HGB 10.2 g/dL (11.2-15.7); Immature Grans % 0.3 %; Lymphocytes % 15.5 %; MCH 30.8 pg (27.0-33.0); MCHC 31.4 % (32.0-36.0); MCV 98 fL (80-95); MPV 9.7 fL (8.0-11.0); Monocytes % 8.9 %; Neutrophils % 71.9 %; Platelet Count 341 10^3/uL (130-400); RBC 3.31 10^6/uL (3.93-5.22); RDW 13.1 % (11.7-14.6); RDW-SD 47.4 fL; WBC 6.37 10^3/uL (4.4-10.8)
[2025-03-06 15:41] LABS: Iron 39 ug/dL (50-170); Total Iron Binding Capacity 352 ug/dL (250-450); Transferrin Sat 11 % (15-50)
[2025-03-06 15:57] LABS: ALT 22 U/L (14-59); AST 18 U/L (15-37); Albumin 2.9 g/dL (3.4-5.0); Alkaline Phosphatase 133 U/L (46-116); Anion Gap 6.4 mmol/L (3-11); BUN 15 mg/dL (7-18); Bilirubin, Total 0.2 mg/dL (0.2-1.0); CO2 28.6 mmol/L (21.0-32.0); CREATININE 0.7 mg/dL (0.55-1.02); Calcium 9.9 mg/dL (8.5-10.1); Chloride 109 mmol/L (98-107); Estimated GFR 83.13 (mL/min/1.73m2); Ferritin 44 ng/mL (8-252); Glucose 100 mg/dL (74-106); Sodium 144 mmol/L (136-145); TSH (W/Ref FT4) 2.11 uIU/mL (0.36-3.74); Total Protein 6.3 g/dL (6.4-8.2); Vitamin D 25 Total 42 ng/mL (30-100)
== END 2025-03-06 16:05 | disposition home or self-care (01) ==
LOC: NCHCN 16:04
PROVIDERS: PCP Nurse Practitioner Family; Visit Provider Nurse Practitioner Family
DX: D64.9 Anemia, unspecified (principal); I10 Essential (primary) hypertension; M81.0 Age-related osteoporosis without current pathological fracture
CPT/HCPCS: 80053; 82306; 82728; 83540; 83550; 84443; 85025